=== PATIENT | male | born 1930 | race Caucasian/White ===

== ENCOUNTER 2016-09-03 13:49 | Outpatient (RCR) | payer MEDICARE ==
--- OUTSIDE RECORDS SUMMARY | 2016-06-09 12:57 | XMS REPORT | Continuity of Care Document ---
Author Author [facility] Organization [facility] Address Unknown Phone Unavailable Care Team Providers Care Process Mold Technician Name Role Phone SHASHI COOLEY DO PCP Insurance Providers Payer Name Policy Number Subscriber Name Relationship Wps Medicare [id number] Ignacio Szymanski 18 Self / Same As Patient Blue Cross [facility] Supp [id number] Ignacio Szymanski 18 Self / Same As Patient Advance Directives Directive Response Recorded Date/Time Advance Directives No 04/11/16 12:32pm Health Care Power of Lock Maintenance Supervisor No 04/11/16 12:32pm Organ Donor No 04/11/16 12:32pm Resuscitation Status Full Code 04/11/16 12:32pm Problems No problem information available. Medications Current Home Medications Medication Dose Units Route Directions Days/Qty Instructions Start Date Metoprolol Tartrate 50 Mg 25 Mg Oral Twice A Day take 1/2 of 50mg tab 03/28/16 Apixaban 2.5 Mg 2.5 Mg Oral Twice A Day 03/28/16 Sertraline Hcl 50 Mg 25 Mg Oral Daily take 1/2 of 50mg tab 03/28/16 Pantoprazole Sodium 40 Mg 40 Mg Oral Daily 03/28/16 Social History Social History Problem Response Recorded Date/Time Alcohol Use Denies Use 04/11/2016 12:32pm Recreational Drug Use No 04/11/2016 12:32pm Recent Foreign Travel No 04/11/2016 12:32pm Recent Infectious Disease Exposure No 04/11/2016 12:32pm Hospitalization with Isolation Denies 04/11/2016 12:32pm Sexually Transmitted Disease No 04/11/2016 12:32pm HIV/AIDS No 04/11/2016 12:32pm Smoking Status Former Smoker 04/11/2016 12:32pm Type Used Cigarettes 03/31/2016 1:36pm Sexually Transmitted Disease No 04/11/2016 12:32pm Query Response Start Date Stop Date Smoking Status Former Smoker Hospital Discharge Instructions No hospital discharge instructions. Plan of Care Discharge Date 04/11/16 12:45pm Prescriptions See Medication Section Functional Status No functional status results. Allergies, Adverse Reactions, Alerts Allergen Type Severity Reaction Status Last Updated Iodine and Iodide Containing Produc Allergy Unknown RASH Active 03/28/16 Penicillins ([id number]) Allergy Unknown HIVES Active 03/28/16 Immunizations No immunization records. Vital Signs Acute Vital Signs Vital Response Date/Time Temperature (Fahrenheit) 98.0 degrees F (97.6 - 99.5) 03/31/2016 1:25pm Temperature (Calculated Celsius) 36.72720 degrees C (36.4 - 37.5) 03/31/2016 1:25pm Temperature Source Tympanic 03/31/2016 1:25pm Pulse Rate (adult) 79 bpm (60 - 90) 03/31/2016 1:25pm Respiratory Rate 16 bpm (12 - 24) 03/31/2016 1:25pm O2 Sat by Pulse Oximetry 98 % (88 - 100) 03/31/2016 1:25pm Blood Pressure 158/94 mm Hg 03/31/2016 1:25pm Blood Pressure Mean 110 mm Hg 03/31/2016 8:05am Pain Numeric Pain Scale 0-No Pain 03/31/2016 1:00pm Pain Intensity 0 03/31/2016 1:25pm Height (Feet) 5 feet 04/11/2016 12:32pm Height (Inches) 9.00 inches 04/11/2016 12:32pm Height (Calculated Centimeters) 175.541151 cm 04/11/2016 12:32pm Weight (Pounds) 145 pounds 04/11/2016 12:32pm Weight (Ounces) 0.0 oz 04/11/2016 12:32pm Weight (Calculated Grams) 35146.894 gm 04/11/2016 12:32pm Weight (Calculated Kilograms) 65.722356 kilograms 04/11/2016 12:32pm Calculated BMI 24.13 04/11/2016 12:32pm Results Pending Microbiology Results Procedure Source Collection Date/Time Procedures Procedure Status Date Provider(s) DX BRONCHOSCOPE/LAVAGE Completed 03/31/16 PETER NIELSON DO Color Doppler echocardiography Active 03/18/16 FRANTZ DUBOIS MD 48 hour Holter monitoring Completed 03/18/16 FRANTZ DUBOIS MD 48 hour Holter monitoring Completed 03/18/16 FRANTZ DUBOIS MD Encounters Encounter Location Arrival/Admit Date Discharge/Depart Date Attending Provider Departed Clinic [facility] 04/11/16 5:33am 04/11/16 12: 45pm BRITTNEY STUART DO Registered Clinic [facility] 04/08/16 9:58am PETER NIELSON DO Departed [facility] 03/31/16 7:53am 1:30pm PETER NIELSON DO Departed Clinic [facility] 03/28/16 12:30pm 03/28/16 1: 02pm PETER NIELSON DO Registered Clinic [facility] 03/18/16 9:28am FRANTZ DUBOIS MD Registered Clinic [facility] 03/18/16 8:16am FRANTZ DUBOIS MD
[2016-06-09 13:18] LABS: BASOPHILS % (AUTO) 0 % (0-10); EOSINOPHILS % (AUTO) 1 % (0-10); LYMPHOCYTES # (AUTO) 0.4 X 10^3 (1.0-4.0); LYMPHOCYTES % (AUTO) 10 % (12-44); MEAN CORPUSCULAR HEMOGLOBIN 30 PG (25-34); MEAN CORPUSCULAR HGB CONC 33 G/DL (32-36); MEAN CORPUSCULAR VOLUME 90 FL (80-99); MEAN PLATELET VOLUME 9.2 FL (7.4-10.4); MONOCYTES # (AUTO) 0.1 X 10^3 (0.0-1.0); MONOCYTES % (AUTO) 3 % (0-12); NEUTROPHILS # (AUTO) 3.5 X 10^3 (1.8-7.8); NEUTROPHILS % (AUTO) 86 % (42-75); PLATELET COUNT 232 10^3/uL (130-400); RED CELL DISTRIBUTION WIDTH 14.9 % (10.0-14.5)
[2016-06-09 13:42] LABS: CALCIUM 9.2 MG/DL (8.5-10.1); CREATININE SERUM 1.36 MG/DL (0.60-1.30); POTASSIUM 4.2 MMOL/L (3.6-5.0)
[2016-06-17 14:42] LABS: BASOPHILS % (AUTO) 1 % (0-10); EOSINOPHILS % (AUTO) 1 % (0-10); LYMPHOCYTES # (AUTO) 0.3 X 10^3 (1.0-4.0); LYMPHOCYTES % (AUTO) 22 % (12-44); MEAN CORPUSCULAR HEMOGLOBIN 30 PG (25-34); MEAN CORPUSCULAR HGB CONC 32 G/DL (32-36); MEAN CORPUSCULAR VOLUME 92 FL (80-99); MEAN PLATELET VOLUME 9.3 FL (7.4-10.4); MONOCYTES # (AUTO) 0.3 X 10^3 (0.0-1.0); MONOCYTES % (AUTO) 20 % (0-12); NEUTROPHILS # (AUTO) 0.8 X 10^3 (1.8-7.8); NEUTROPHILS % (AUTO) 56 % (42-75); PLATELET COUNT 152 10^3/uL (130-400); RED BLOOD COUNT 3.75 10^6/uL (4.35-5.85); RED CELL DISTRIBUTION WIDTH 15.5 % (10.0-14.5)
[2016-06-17 14:52] LABS: WHITE BLOOD COUNT 1.4 10^3/uL (4.3-11.0)
[2016-06-17 15:25] LABS: ALBUMIN 3.9 G/DL (3.2-4.5); BILIRUBIN,TOTAL 0.2 MG/DL (0.1-1.0); CALCIUM 9.1 MG/DL (8.5-10.1); CREATININE SERUM 1.32 MG/DL (0.60-1.30); MAGNESIUM 1.8 MG/DL (1.8-2.4); POTASSIUM 4.5 MMOL/L (3.6-5.0); TOTAL PROTEIN 6.7 G/DL (6.4-8.2)
[2016-06-24 14:28] LABS: BASOPHILS % (AUTO) 1 % (0-10); EOSINOPHILS % (AUTO) 2 % (0-10); LYMPHOCYTES # (AUTO) 0.5 X 10^3 (1.0-4.0); LYMPHOCYTES % (AUTO) 26 % (12-44); MEAN CORPUSCULAR HEMOGLOBIN 29 PG (25-34); MEAN CORPUSCULAR HGB CONC 32 G/DL (32-36); MEAN CORPUSCULAR VOLUME 92 FL (80-99); MEAN PLATELET VOLUME 9.3 FL (7.4-10.4); MONOCYTES # (AUTO) 0.5 X 10^3 (0.0-1.0); MONOCYTES % (AUTO) 27 % (0-12); NEUTROPHILS # (AUTO) 0.8 X 10^3 (1.8-7.8); NEUTROPHILS % (AUTO) 44 % (42-75); PLATELET COUNT 172 10^3/uL (130-400); RED BLOOD COUNT 3.91 10^6/uL (4.35-5.85); RED CELL DISTRIBUTION WIDTH 16.7 % (10.0-14.5); WHITE BLOOD COUNT 1.8 10^3/uL (4.3-11.0)
[2016-06-24 14:53] LABS: CALCIUM 9.2 MG/DL (8.5-10.1); CREATININE SERUM 1.41 MG/DL (0.60-1.30); POTASSIUM 4.1 MMOL/L (3.6-5.0)
[2016-07-01 14:54] LABS: BASOPHILS % (AUTO) 0 % (0-10); EOSINOPHILS % (AUTO) 1 % (0-10); LYMPHOCYTES # (AUTO) 0.6 X 10^3 (1.0-4.0); LYMPHOCYTES % (AUTO) 21 % (12-44); MEAN CORPUSCULAR HEMOGLOBIN 30 PG (25-34); MEAN CORPUSCULAR HGB CONC 32 G/DL (32-36); MEAN CORPUSCULAR VOLUME 94 FL (80-99); MONOCYTES # (AUTO) 0.8 X 10^3 (0.0-1.0); MONOCYTES % (AUTO) 30 % (0-12); NEUTROPHILS # (AUTO) 1.3 X 10^3 (1.8-7.8); NEUTROPHILS % (AUTO) 48 % (42-75); PLATELET COUNT 215 10^3/uL (130-400); RED BLOOD COUNT 3.85 10^6/uL (4.35-5.85); RED CELL DISTRIBUTION WIDTH 17.6 % (10.0-14.5); WHITE BLOOD COUNT 2.8 10^3/uL (4.3-11.0)
[2016-07-01 15:26] LABS: CALCIUM 9.1 MG/DL (8.5-10.1); CREATININE SERUM 1.58 MG/DL (0.60-1.30); POTASSIUM 4.2 MMOL/L (3.6-5.0)
[2016-07-08 13:28] LABS: BASOPHILS % (AUTO) 1 % (0-10); EOSINOPHILS % (AUTO) 1 % (0-10); LYMPHOCYTES # (AUTO) 0.7 X 10^3 (1.0-4.0); LYMPHOCYTES % (AUTO) 19 % (12-44); MEAN CORPUSCULAR HEMOGLOBIN 31 PG (25-34); MEAN CORPUSCULAR HGB CONC 33 G/DL (32-36); MEAN CORPUSCULAR VOLUME 94 FL (80-99); MONOCYTES # (AUTO) 0.7 X 10^3 (0.0-1.0); MONOCYTES % (AUTO) 20 % (0-12); NEUTROPHILS # (AUTO) 2.2 X 10^3 (1.8-7.8); NEUTROPHILS % (AUTO) 59 % (42-75); PLATELET COUNT 209 10^3/uL (130-400); RED CELL DISTRIBUTION WIDTH 17.6 % (10.0-14.5); WHITE BLOOD COUNT 3.7 10^3/uL (4.3-11.0)
[2016-07-08 14:09] LABS: CALCIUM 9.5 MG/DL (8.5-10.1); CREATININE SERUM 1.5 MG/DL (0.60-1.30); POTASSIUM 4.1 MMOL/L (3.6-5.0)
[2016-07-23 10:06] LABS: BASOPHILS # (AUTO) 0.1 10^3/uL (0.0-0.1); BASOPHILS % (AUTO) 1 % (0-10); EOSINOPHILS # (AUTO) 0.1 10^3/uL (0.0-0.3); EOSINOPHILS % (AUTO) 2 % (0-10); LYMPHOCYTES # (AUTO) 0.9 X 10^3 (1.0-4.0); LYMPHOCYTES % (AUTO) 16 % (12-44); MEAN CORPUSCULAR HEMOGLOBIN 31 PG (25-34); MEAN CORPUSCULAR HGB CONC 33 G/DL (32-36); MEAN CORPUSCULAR VOLUME 94 FL (80-99); MEAN PLATELET VOLUME 9.3 FL (7.4-10.4); MONOCYTES # (AUTO) 1.1 X 10^3 (0.0-1.0); MONOCYTES % (AUTO) 19 % (0-12); NEUTROPHILS # (AUTO) 3.5 X 10^3 (1.8-7.8); NEUTROPHILS % (AUTO) 62 % (42-75); PLATELET COUNT 224 10^3/uL (130-400); RED BLOOD COUNT 3.92 10^6/uL (4.35-5.85); RED CELL DISTRIBUTION WIDTH 17.8 % (10.0-14.5); WHITE BLOOD COUNT 5.6 10^3/uL (4.3-11.0)
[2016-07-23 10:54] LABS: ALBUMIN 4.2 G/DL (3.2-4.5); BILIRUBIN,TOTAL 0.4 MG/DL (0.1-1.0); CALCIUM 9.9 MG/DL (8.5-10.1); CREATININE SERUM 1.36 MG/DL (0.60-1.30); MAGNESIUM 2.1 MG/DL (1.8-2.4); POTASSIUM 4.3 MMOL/L (3.6-5.0); TOTAL PROTEIN 7.1 G/DL (6.4-8.2)
[2016-08-04 15:40] LABS: BILIRUBIN,TOTAL 0.3 MG/DL (0.1-1.0); CALCIUM 8.9 MG/DL (8.5-10.1); CREATININE SERUM 1.35 MG/DL (0.60-1.30); POTASSIUM 3.9 MMOL/L (3.6-5.0); TOTAL PROTEIN 6.6 G/DL (6.4-8.2)
[2016-08-04 15:51] LABS: BASOPHILS # (AUTO) 0.1 10^3/uL (0.0-0.1); BASOPHILS % (AUTO) 1 % (0-10); EOSINOPHILS # (AUTO) 0.3 10^3/uL (0.0-0.3); EOSINOPHILS % (AUTO) 7 % (0-10); LYMPHOCYTES # (AUTO) 0.7 X 10^3 (1.0-4.0); LYMPHOCYTES % (AUTO) 14 % (12-44); MEAN CORPUSCULAR HEMOGLOBIN 31 PG (25-34); MEAN CORPUSCULAR HGB CONC 32 G/DL (32-36); MEAN CORPUSCULAR VOLUME 96 FL (80-99); MONOCYTES # (AUTO) 0.9 X 10^3 (0.0-1.0); MONOCYTES % (AUTO) 19 % (0-12); NEUTROPHILS # (AUTO) 2.9 X 10^3 (1.8-7.8); NEUTROPHILS % (AUTO) 59 % (42-75); PLATELET COUNT 188 10^3/uL (130-400); RED BLOOD COUNT 3.61 10^6/uL (4.35-5.85); RED CELL DISTRIBUTION WIDTH 17.5 % (10.0-14.5); WHITE BLOOD COUNT 4.9 10^3/uL (4.3-11.0)
[2016-08-11 14:54] LABS: BASOPHILS % (AUTO) 0 % (0-10); EOSINOPHILS # (AUTO) 0.2 10^3/uL (0.0-0.3); EOSINOPHILS % (AUTO) 4 % (0-10); LYMPHOCYTES # (AUTO) 0.5 X 10^3 (1.0-4.0); LYMPHOCYTES % (AUTO) 11 % (12-44); MEAN CORPUSCULAR HEMOGLOBIN 31 PG (25-34); MEAN CORPUSCULAR HGB CONC 32 G/DL (32-36); MEAN CORPUSCULAR VOLUME 96 FL (80-99); MEAN PLATELET VOLUME 9.2 FL (7.4-10.4); MONOCYTES # (AUTO) 0.1 X 10^3 (0.0-1.0); MONOCYTES % (AUTO) 2 % (0-12); NEUTROPHILS # (AUTO) 3.7 X 10^3 (1.8-7.8); NEUTROPHILS % (AUTO) 83 % (42-75); PLATELET COUNT 196 10^3/uL (130-400); RED BLOOD COUNT 3.43 10^6/uL (4.35-5.85); RED CELL DISTRIBUTION WIDTH 16.5 % (10.0-14.5); WHITE BLOOD COUNT 4.5 10^3/uL (4.3-11.0)
[2016-08-11 15:48] LABS: CALCIUM 9.3 MG/DL (8.5-10.1); CREATININE SERUM 1.26 MG/DL (0.60-1.30); POTASSIUM 4.1 MMOL/L (3.6-5.0)
[2016-08-18 14:19] LABS: BASOPHILS % (AUTO) 2 % (0-10); EOSINOPHILS # (AUTO) 0.1 10^3/uL (0.0-0.3); EOSINOPHILS % (AUTO) 6 % (0-10); LYMPHOCYTES # (AUTO) 0.6 X 10^3 (1.0-4.0); LYMPHOCYTES % (AUTO) 38 % (12-44); MEAN CORPUSCULAR HEMOGLOBIN 31 PG (25-34); MEAN CORPUSCULAR HGB CONC 32 G/DL (32-36); MEAN CORPUSCULAR VOLUME 96 FL (80-99); MEAN PLATELET VOLUME 9.5 FL (7.4-10.4); MONOCYTES # (AUTO) 0.3 X 10^3 (0.0-1.0); MONOCYTES % (AUTO) 20 % (0-12); NEUTROPHILS # (AUTO) 0.6 X 10^3 (1.8-7.8); NEUTROPHILS % (AUTO) 34 % (42-75); PLATELET COUNT 139 10^3/uL (130-400); RED BLOOD COUNT 3.73 10^6/uL (4.35-5.85); RED CELL DISTRIBUTION WIDTH 15.9 % (10.0-14.5); WHITE BLOOD COUNT 1.6 10^3/uL (4.3-11.0)
[2016-08-18 14:46] LABS: CALCIUM 9.5 MG/DL (8.5-10.1); CREATININE SERUM 1.4 MG/DL (0.60-1.30)
[2016-08-25 14:26] LABS: BASOPHILS % (AUTO) 1 % (0-10); EOSINOPHILS % (AUTO) 2 % (0-10); LYMPHOCYTES # (AUTO) 0.5 X 10^3 (1.0-4.0); LYMPHOCYTES % (AUTO) 30 % (12-44); MEAN CORPUSCULAR HEMOGLOBIN 31 PG (25-34); MEAN CORPUSCULAR HGB CONC 32 G/DL (32-36); MEAN CORPUSCULAR VOLUME 97 FL (80-99); MEAN PLATELET VOLUME 9.1 FL (7.4-10.4); MONOCYTES # (AUTO) 0.6 X 10^3 (0.0-1.0); MONOCYTES % (AUTO) 33 % (0-12); NEUTROPHILS # (AUTO) 0.6 X 10^3 (1.8-7.8); NEUTROPHILS % (AUTO) 34 % (42-75); PLATELET COUNT 206 10^3/uL (130-400); RED BLOOD COUNT 3.72 10^6/uL (4.35-5.85); RED CELL DISTRIBUTION WIDTH 15.3 % (10.0-14.5); WHITE BLOOD COUNT 1.7 10^3/uL (4.3-11.0)
[2016-08-25 14:53] LABS: CALCIUM 9.3 MG/DL (8.5-10.1); CREATININE SERUM 1.48 MG/DL (0.60-1.30); POTASSIUM 3.9 MMOL/L (3.6-5.0)
[~2016-09-03] VITALS: Ht 170.2 cm; Wt 70.8 kg
[~2016-09-03 13:49] MED LIST: APIX2.5T PO; CARBOPLATIN IV SCH; CISPLATIN IV SCH; D5W IV SCH; ETOPOSIDE IV SCH; FAMOTIDINE 20MG/2ML IV (CANCER CTR) IV SCH; FLU TRIvalent (5 YOA+) 2016-17 (CANCER CTR) 0.5 ML IM ONE; FOSAPREPITANT 150 MG/NS 150 MG IVPB (CANCER CTR) IV PRN; MANNITOL IV SCH; METO50TA2 PO; NORMAL SALINE IV SCH; NS IV 1000 ML (CANCER CTR) 1,000 ML ONE; NS IV 1000 ML (CANCER CTR) IV SCH; ONDANSETRON 16 MG, DEXAMETHASONE 10 MG/NS 50 ML IVPB IV SCH; PALONOSETRON 0.25 MG, DEXAMETHASONE 10 MG/NS 50 ML IVPB IV PRN; PANT40TA2 PO; SERT50TA9 PO; [UNRECOGNIZED DRUG - OTHER] IV SCH
[2016-09-03 14:18] LABS: BASOPHILS # (AUTO) 0.1 10^3/uL (0.0-0.1); BASOPHILS % (AUTO) 1 % (0-10); EOSINOPHILS # (AUTO) 0.1 10^3/uL (0.0-0.3); EOSINOPHILS % (AUTO) 1 % (0-10); LYMPHOCYTES # (AUTO) 0.7 X 10^3 (1.0-4.0); LYMPHOCYTES % (AUTO) 14 % (12-44); MEAN CORPUSCULAR HEMOGLOBIN 31 PG (25-34); MEAN CORPUSCULAR HGB CONC 32 G/DL (32-36); MEAN CORPUSCULAR VOLUME 96 FL (80-99); MEAN PLATELET VOLUME 9.3 FL (7.4-10.4); MONOCYTES # (AUTO) 0.9 X 10^3 (0.0-1.0); MONOCYTES % (AUTO) 18 % (0-12); NEUTROPHILS # (AUTO) 3.2 X 10^3 (1.8-7.8); NEUTROPHILS % (AUTO) 66 % (42-75); PLATELET COUNT 243 10^3/uL (130-400); RED BLOOD COUNT 3.77 10^6/uL (4.35-5.85); RED CELL DISTRIBUTION WIDTH 14.9 % (10.0-14.5)
[2016-09-03 14:46] LABS: BILIRUBIN,TOTAL 0.3 MG/DL (0.1-1.0); CALCIUM 9.2 MG/DL (8.5-10.1); CREATININE SERUM 1.57 MG/DL (0.60-1.30); MAGNESIUM 1.9 MG/DL (1.8-2.4); POTASSIUM 3.7 MMOL/L (3.6-5.0); TOTAL PROTEIN 6.8 G/DL (6.4-8.2)
[2016-12-16] MEDS ORDERED: DEXA4TAB PO (11:03)
== END 2016-09-07 | disposition home or self-care (01) ==
LOC: ONC 13:49
PROVIDERS: ATTEND Internal Medicine Hematology & Oncology
DX: Z51.0 Encounter for antineoplastic radiation therapy (principal); Z51.11 Encounter for antineoplastic chemotherapy; C34.11 Malignant neoplasm of upper lobe, right bronchus or lung; J44.9 Chronic obstructive pulmonary disease, unspecified; I10 Essential (primary) hypertension; I25.10 Atherosclerotic heart disease of native coronary artery without angina pectoris; Z79.899 Other long term (current) drug therapy; Z23 Encounter for immunization
CPT/HCPCS: 36415; 36591; 71020; 77300; 77307; 77334; 77336; 77412; 77417; 80048; 80053; 83735; 85025; 90471; 96367; 96375; 96413; 96417; 99213

== ENCOUNTER → 2016-09-30 | Outpatient (CLI) | payer MEDICARE ==
[~2016-09-30] MED LIST changes: +APIX5TAB PO; +ATOR40TA PO; +BARIUM SUSPENSION 2.1% (VANILLA SILQ) 450 ML PO ONE; -CARBOPLATIN IV SCH; +CATHETER FLUSH 10 ML SYR IV PRN; -CISPLATIN IV SCH; -D5W IV SCH; +DEXA4TAB PO; -ETOPOSIDE IV SCH; -FAMOTIDINE 20MG/2ML IV (CANCER CTR) IV SCH; -FLU TRIvalent (5 YOA+) 2016-17 (CANCER CTR) 0.5 ML IM ONE; +FLUT16SP22 NS; -FOSAPREPITANT 150 MG/NS 150 MG IVPB (CANCER CTR) IV PRN; +IOHEXOL 350 MG/ML 100 ML (OMNIPAQUE 350) VIAL IV ONE; +IPRA4AER IH; +LACT10SO5 PO; +LACT20SO2 PO; -MANNITOL IV SCH; -NORMAL SALINE IV SCH; +NS 100 ML (IVPB) BAG IV ONE; -NS IV 1000 ML (CANCER CTR) 1,000 ML ONE; -NS IV 1000 ML (CANCER CTR) IV SCH; -ONDANSETRON 16 MG, DEXAMETHASONE 10 MG/NS 50 ML IVPB IV SCH; +OXYC-202 PO; +OXYC-465 PO; -PALONOSETRON 0.25 MG, DEXAMETHASONE 10 MG/NS 50 ML IVPB IV PRN; -[UNRECOGNIZED DRUG - OTHER] IV SCH
--- OUTSIDE RECORDS SUMMARY | 2016-09-30 11:35 | XMS REPORT | Continuity of Care Document ---
Author Author [facility] Organization [facility] Address Unknown Phone Unavailable Care Team Providers Care Air And Missile Defense Crewmember Name Role Phone SHASHI COOLEY DO PCP Insurance Providers Payer Name Policy Number Subscriber Name Relationship Wps Medicare [id number] Ignacio Szymanski 18 Self / Same As Patient Blue Cross [facility] Supp [id number] Ignacio Szymanski 18 Self / Same As Patient Advance Directives Directive Response Recorded Date/Time Advance Directives No 04/11/16 12:32pm Health Care Power of Agile Project Manager No 04/11/16 12:32pm Organ Donor No 04/11/16 [...] Produc Allergy Unknown RASH Active 03/28/16 Penicillins ([id number]) Allergy Unknown HIVES Active 03/28/16 Immunizations No immunization records. Vital Signs Acute Vital Signs Vital Response Date/Time Temperature (Fahrenheit) 98.0 degrees F (97.6 - 99.5) 03/31/2016 1:25pm Temperature (Calculated Celsius) 36.22057 degrees C (36.4 - 37.5) 03/31/2016 1:25pm [...] 9.00 inches 04/11/2016 12:32pm Height (Calculated Centimeters) 175.596477 cm 04/11/2016 12:32pm Weight (Pounds) 145 pounds 04/11/2016 12:32pm Weight (Ounces) 0.0 oz 04/11/2016 12:32pm Weight (Calculated Grams) 84936.894 gm 04/11/2016 12:32pm Weight (Calculated Kilograms) 65.259849 kilograms 04/11/2016 12:32pm Calculated BMI 24.13 04/11/2016 [...] Discharge/Depart Date Attending Provider Departed Clinic [facility] 04/11/16 5:33am 04/11/16 12: 45pm BRITTNEY STUART DO Registered Clinic [facility] 04/08/16 9:58am PETER NIELSON DO Departed [facility] Day [facility] 03/31/16 7:53am 1:30pm PETER NIELSON DO Departed Clinic [facility] 03/28/16 12:30pm 03/28/16 1: 02pm PETER NIELSON DO Registered Clinic [facility] 03/18/16 9:28am FRANTZ DUBOIS MD Registered Clinic [facility] 03/18/16 8:16am FRANTZ DUBOIS MD
--- NOTE | 2016-09-30 13:21 | Diagnostic Imaging Report ---
PROCEDURE: CT chest and abdomen with contrast. TECHNIQUE: Multiple contiguous axial images were obtained through the chest and abdomen after the administration of intravenous contrast. INDICATION: Lung cancer. FINDINGS: The PET/CT exam performed on 04/08/2016 noted an intensely hypermetabolic nodule in the right upper lung as well as hypermetabolic right hilar and mediastinal adenopathy. On this exam, the mass in the right upper lung has decreased in size since the previous study. The mass now measures 0.8 x 1.2 cm as opposed to 1.6 x 2.0 cm on the previous study. The enlarged hypermetabolic nodes in the mediastinum and right hilum seen previously also appear slightly smaller. Specifically, the node in the pretracheal region on the right measuring 1.9 x 2.8 cm previously is now estimated to be 1.3 x 1.9 cm. However, in the interval since the prior study, patchy alveolar/interstitial infiltrates have developed in the right upper lobe anteriorly and in the right midlung. These may be secondary to mild pneumonia/atelectasis. The lungs are otherwise generally clear. There is no sign of a pleural effusion. The heart size is within normal limits. A small amount of fluid has developed in the pericardium along the right ventricle. This measures 7 mm in maximum depth. Coronary artery calcifications are noted. Aorta is not abnormally dilated and there is no sign of dissection. Pulmonary arteries were not fully opacified. There is no obvious defect to suggest a pulmonary embolus. The small area of diminished density in the right lobe of the thyroid seen previously is again evident and no different. The liver is of lower density than usually seen. This appearance does suggest fatty metamorphosis. There is no focal mass involving the liver. The biliary tree is not abnormally dilated. The spleen, pancreas, adrenals, gallbladder, kidneys, aorta and inferior vena cava are unremarkable for an acute abnormality. The stomach is partially filled with oral contrast and consequently difficult to assess. There is no abdominal mass or free fluid collection noted. The bone windows show no sign of a fracture or of a destructive lesion. IMPRESSION: 1. The appearance of the chest has improved as the nodule in the right upper lung seen previously has diminished in size. There has also been a slight decrease in size in the mediastinal and hilar adenopathy. 2. The patchy alveolar/interstitial infiltrates involving the left upper lobe and right midlung are of uncertain etiology but could be secondary to mild pneumonia/atelectasis. Clinical followup is recommended. 3. There is no acute cardiopulmonary abnormality noted otherwise. A small pericardial effusion has developed since the prior study however. 4. There is no acute abnormality in the abdomen and there is no sign of metastatic disease. Dictated by: Dictated on workstation # [id number]
--- NOTE | 2016-09-30 16:37 | Diagnostic Imaging Report ---
Whole body bone scan. INDICATION: Lung cancer. The study was performed following administration of 26.2 mCi of 99m technetium MDP. Anterior and posterior whole-body images were obtained. There are no previous nuclear medicine bone scans available for comparison. The PET/CT exam performed on 04/08/2016 noted an intensely hypermetabolic right upper lobe pulmonary nodule but failed to show any sign of metastatic disease. On this exam, there is fairly even distribution of radiotracer throughout the osseous structures. There is no focal area of increased or decreased activity to indicate an acute abnormality or metastatic disease. There is generalized activity involving the shoulder and hip joints and to a lesser extent the knee joints. Most likely, the uptake in these regions reflects degenerative changes. Both kidneys do show excretion of the radiotracer. IMPRESSION: There is no evidence for an acute bony abnormality or for metastatic disease. Dictated by: Dictated on workstation # [id number]
== END ==
LOC: CARD 11:31
PROVIDERS: ATTEND Nurse Practitioner Adult Health
DX: C34.11 Malignant neoplasm of upper lobe, right bronchus or lung (principal)
CPT/HCPCS: 71260; 74160; 78306

== ENCOUNTER 2016-11-07 11:19 | Inpatient (IN) | payer MEDICARE ==
[~2016-11-07] VITALS: Ht 177.8 cm; Wt 66.7 kg
[~2016-11-07 11:19] MED LIST changes: -APIX5TAB PO; -ATOR40TA PO; -BARIUM SUSPENSION 2.1% (VANILLA SILQ) 450 ML PO ONE; -CATHETER FLUSH 10 ML SYR IV PRN; -DEXA4TAB PO; -FLUT16SP22 NS; -IOHEXOL 350 MG/ML 100 ML (OMNIPAQUE 350) VIAL IV ONE; -IPRA4AER IH; -LACT10SO5 PO; -LACT20SO2 PO; -NS 100 ML (IVPB) BAG IV ONE; -OXYC-202 PO; -OXYC-465 PO
--- OUTSIDE RECORDS SUMMARY | 2016-11-07 11:27 | XMS REPORT | Continuity of Care Document ---
Author Author [facility] Organization [facility] Address Unknown Phone Unavailable Care Team Providers Care Operator/Assistant Foreman Name Role Phone SHASHI COOLEY DO PCP Insurance Providers Payer Name Policy Number Subscriber Name Relationship Wps Medicare [id number] Ignacio Szymanski 18 Self / Same As Patient Blue Cross [facility] Supp [id number] Ignacio Szymanski 18 Self / Same As Patient Advance Directives Directive Response Recorded Date/Time Advance Directives No 04/11/16 12:32pm Health Care Power of Black Puller No 04/11/16 12:32pm Organ Donor No 04/11/16 [...] Produc Allergy Unknown RASH Active 03/28/16 Penicillins ([id number]) Allergy Unknown HIVES Active 03/28/16 Immunizations No immunization records. Vital Signs Acute Vital Signs Vital Response Date/Time Temperature (Fahrenheit) 98.0 degrees F (97.6 - 99.5) 03/31/2016 1:25pm Temperature (Calculated Celsius) 36.64697 degrees C (36.4 - 37.5) 03/31/2016 1:25pm [...] 9.00 inches 04/11/2016 12:32pm Height (Calculated Centimeters) 175.128379 cm 04/11/2016 12:32pm Weight (Pounds) 145 pounds 04/11/2016 12:32pm Weight (Ounces) 0.0 oz 04/11/2016 12:32pm Weight (Calculated Grams) 43524.894 gm 04/11/2016 12:32pm Weight (Calculated Kilograms) 65.913316 kilograms 04/11/2016 12:32pm Calculated BMI 24.13 04/11/2016 [...] Discharge/Depart Date Attending Provider Departed Clinic [facility] 04/11/16 5:33am 04/11/16 12: 45pm BRITTNEY STUART DO Registered Clinic [facility] 04/08/16 9:58am PETER NIELSON DO Departed [facility] Day [facility] 03/31/16 7:53am 1:30pm PETER NIELSON DO Departed Clinic [facility] 03/28/16 12:30pm 03/28/16 1: 02pm PETER NIELSON DO Registered Clinic [facility] 03/18/16 9:28am FRANTZ DUBOIS MD Registered Clinic [facility] 03/18/16 8:16am FRANTZ DUBOIS MD
[2016-11-07 13:02] LABS: BILIRUBIN,URINE NEGATIVE (NEGATIVE); KETONES,URINE NEGATIVE (NEGATIVE); LEUKOCYTE ESTERASE ,URINE NEGATIVE (NEGATIVE); MEAN PLATELET VOLUME 9.9 FL (7.4-10.4); NITRITE,URINE NEGATIVE (NEGATIVE); PH,URINE 6 (5-9); PROTEIN,URINE 1+ (NEGATIVE); RED BLOOD COUNT 3.97 10^6/uL (4.35-5.85); UROBILINOGEN,URINE NORMAL (NORMAL)
[2016-11-07 13:15] LABS: ALBUMIN 3.9 G/DL (3.2-4.5); BILIRUBIN,TOTAL 0.4 MG/DL (0.1-1.0); CALCIUM 9.4 MG/DL (8.5-10.1); CREATININE SERUM 1.58 MG/DL (0.60-1.30); SQUAMOUS EPITHELIAL CELL,UR 0-2 /HPF; TOTAL PROTEIN 7.3 G/DL (6.4-8.2)
--- NOTE | 2016-11-07 13:15 | ED Abdominal Pain ---
General Chief Complaint: Abdominal/GI Problems Stated Complaint: RIGHT SIDE ABD PAIN Sepsis Screen: No Definite Risk Source of Information: Patient, Family History of Present Illness Time Seen By Provider: 13:12 Initial Comments Z5-year-old white male presents with complaint of right lower quadrant pain. Patient has a patient of Dr. Morton who is treating him for lung cancer. Patient has not an eloquent historian. It appears that he has not had associated vomiting, fever, chills, flank pain, or rectal bleeding. Allergies and Home Medications Allergies Coded Allergies: Iodine and Iodide Containing Produc (Verified Allergy, Unknown, RASH, 03/28) Penicillins (Verified Allergy, Unknown, HIVES, 03/28/16) Home Medications Apixaban 2.5 Mg Tablet 2.5 MG PO BID (Reported) Metoprolol Tartrate 50 Mg Tablet 25 MG PO BID (Reported) take 1/2 of 50mg tab Pantoprazole Sodium 40 Mg Tablet.dr 40 MG PO DAILY (Reported) Sertraline HCl 50 Mg Tablet 25 MG PO DAILY (Reported) take 1/2 of 50mg tab Review of Systems Constitutional: No chills, No fever EENTM: No Eye Pain Respiratory: See HPI Cardiovascular: Denies Chest Pain Gastrointestinal: Abdominal Pain (right lower quadrant.) Genitourinary: Denies Burning, Denies Drainage Musculoskeletal: No gout Psychiatric/Neurological: No Symptoms Reported Endocrine: No Symptoms Reported Hematologic/Lymphatic: No Symptoms Reported Past Qpdnfbl-Raapya-Bxvird Hx Patient Social History Alcohol Use: Denies Use Recreational Drug Use: No Smoking Status: Former Smoker Type Used: Cigarettes Recent Foreign Travel: No Contact w/Someone Who Travel: No Recent Infectious Disease Expo: No Immunizations Up To Date Date of Pneumonia Vaccine: Mar 24, 2016 Surgeries HX Surgeries: Yes (Ing hernia, knee scope, ) Respiratory Hx Respiratory Disorders: Yes Respiratory Disorders: COPD Cardiovascular Hx Cardiac Disorders: Yes Neurological Hx Neurological Disorders: No Reproductive System Sexually Transmitted Disease: No HIV/AIDS: No Genitourinary Hx Genitourinary Disorders: No Gastrointestinal Hx Gastrointestinal Disorders: Yes Gastrointestinal Disorders: Gastroesophageal Reflux Musculoskeletal Hx Musculoskeletal Disorders: Yes Musculoskeletal Disorders: Arthritis Endocrine Hx Endocrine Disorders: No HEENT HX ENT Disorders: Yes (GLASSES, DENTURES) Loss of Vision: Bilateral Hearing Impairment: Denies Cancer Hx Cancer: Yes Cancer: Lung Psychosocial Hx Psychiatric Problems: Yes Behavioral Health Disorders: Depression Integumentary HX Skin/Integumentary Disorder: No Blood Transfusions Hx Blood Disorders: No Adverse Reaction to a Blood Tr: No (N/A) Reviewed Nursing Assessment Reviewed/Agree w Nursing PMH: Yes Physical Exam Vital Signs VS - Last 72 Hours, by Label 11/07/16 12:10 Temp 98.2 Pulse 96 Resp 18 B/P 120/96 Pulse Ox 97 Capillary Refill : Less Than 3 Seconds General Appearance: cachetic no apparent distress HEENT: normal ENT inspection Neck: normal inspection Respiratory: normal breath sounds Cardiovascular: regular rate, rhythm Gastrointestinal: normal bowel sounds no pulsatile mass Extremities: normal range of motion non-tender normal inspection Back: normal inspection Neurologic/Psychiatric: no motor/sensory deficits normal mood/affect Skin: normal color warm/dry Progress/Results/Core Measures Results/Orders Lab Results Laboratory Tests Test 11/07/16 12:40 Range/Units Alanine Aminotransferase (ALT/SGPT) 19 0-55 U/L Albumin 3.9 3.2-4.5 G/DL Alkaline Phosphatase 126 40-136 U/L Anion Gap 11 5-14 MMOL/L Aspartate Amino Transf (AST/SGOT) 23 5-34 U/L BUN/Creatinine Ratio 9 Blood Urea Nitrogen 14 7-18 MG/DL Calcium Level 9.4 8.5-10.1 MG/DL Carbon Dioxide Level 22 21-32 MMOL/L Chloride Level 101 98-107 MMOL/L Creatinine 1.58 H 0.60-1.30 MG/DL Estimat Glomerular Filtration Rate 42 Glucose Level 141 H 70-105 MG/DL Hematocrit 35 L 40-54 % Hemoglobin 11.4 L 13.3-17.7 G/DL Lipase 20 8-78 U/L Mean Corpuscular Hemoglobin 29 25-34 PG Mean Corpuscular Hemoglobin Concent 32 32-36 G/DL Mean Corpuscular Volume 89 80-99 FL Mean Platelet Volume 9.9 7.4-10.4 FL Platelet Count 294 130-400 10^3/uL Potassium Level 4.0 3.6-5.0 MMOL/L Red Blood Count 3.97 L 4.35-5.85 10^6/uL Red Cell Distribution Width 14.0 10.0-14.5 % Sodium Level 134 L 135-145 MMOL/L Total Bilirubin 0.4 0.1-1.0 MG/DL Total Protein 7.3 6.4-8.2 G/DL Urine Bacteria NEGATIVE /HPF Urine Bilirubin NEGATIVE NEGATIVE Urine Casts PRESENT /LPF Urine Clarity CLEAR Urine Color YELLOW Urine Crystals NONE /LPF Urine Culture Indicated NO Urine Glucose (UA) NEGATIVE NEGATIVE Urine Hyaline Casts 5-10 H /LPF Urine Ketones NEGATIVE NEGATIVE Urine Leukocyte Esterase NEGATIVE NEGATIVE Urine Mucus NEGATIVE /LPF Urine Nitrite NEGATIVE NEGATIVE Urine Protein 1+ H NEGATIVE Urine RBC NONE /HPF Urine RBC (Auto) 1+ H NEGATIVE Urine Specific [place] 1.010 L 1.016-1.022 Urine Squamous Epithelial Cells 0-2 /HPF Urine Urobilinogen NORMAL NORMAL MG/DL Urine WBC NONE /HPF Urine pH 6 5-9 White Blood Count 7.0 4.3-11.0 10^3/uL My Orders Orders-YASMEEN SOTO MD Cbc No Diff (11/07/16 12:55) Comprehensive Metabolic Panel (11/07/16 12:55) Lipase (11/07/16 12:55) Ua Culture If Indicated (11/07/16 12:55) Ct Abdomen/Pelvis W (11/07/16 13:15) Chest Pa/Lat (2 View) (11/07/16 13:15) Iohexol Injection (Omnipaque 350 Mg/Ml 1 (11/07/16 13:45) Sodium Chloride Flush (Catheter Flush Sy (11/07/16 13:45) Ns (Ivpb) (Sodium Chloride 0.9% Ivpb Bag (11/07/16 13:45) Medications Given in ED Current Medications Medications Dose Ordered Sig/[place] Route Start Time Stop Time Status Last Admin Dose Admin Iohexol 75 ml ONCE ONCE IV 11/07/16 13:45 11/07/16 13:46 DC 11/07/16 13:45 75 ML Vital Signs/I&O Vital Sign - Last 12Hours 11/07/16 12:10 Temp 98.2 Pulse 96 Resp 18 B/P 120/96 Pulse Ox 97 Blood Pressure Mean: 104 Progress Note : Time: 14:31 Progress Note The patient's CT of the abdomen and pelvis demonstrated multiple large masses consistent with neoplasms. Departure Communication Time/Spoke to Admitting Phy: 14:[address] Green Time/Spoke to Consulting Physi: 14:32 Communication/Consulting Dr. Huston Impression Impression: Primary Impression: Abdominal mass Qualified Code: R19.00 - Intra-abdominal and pelvic swelling, mass and lump, unspecified site Additional Impression: Cancer Disposition: 09 ADMITTED INPATIENT Condition: Improved Departure-Patient Inst. Referrals: SHASHI COOLEY DO (PCP/Family) Primary Care Physician YASMEEN SOTO MD Nov 07, 2016 13:15
[2016-11-07] MEDS ORDERED: NS 100 ML (IVPB) BAG IV ONE (13:45)
[2016-11-07] MEDS ORDERED: CATHETER FLUSH 10 ML SYR IV PRN (13:45)
[2016-11-07] MEDS ORDERED: IOHEXOL 350 MG/ML 100 ML (OMNIPAQUE 350) VIAL IV ONE (13:45)
--- NOTE | 2016-11-07 14:21 | Diagnostic Imaging Report ---
PA and lateral chest at 1:57 PM. INDICATION: Lung cancer. The heart size is within normal limits and stable when compared to 09/03/2016. The coarse perihilar markings on the right seen on the prior study are somewhat more pronounced on this exam. This may be secondary to differences in film technique. There is no definite evidence for pneumonia, however. The left lung is generally clear. The mediastinum is not widened. The osseous structures are intact. The central venous catheter on the left remains in good position. IMPRESSION: 1. The perihilar markings on the right do seem somewhat more prominent than noted on the prior exam, but there is no clear evidence for pneumonia or for failure. 2. The overall appearance of the chest is otherwise stable. Dictated by: Dictated on workstation # [id number]
--- NOTE | 2016-11-07 14:24 | Diagnostic Imaging Report ---
PROCEDURE: CT abdomen and pelvis with contrast. TECHNIQUE: Multiple contiguous axial images were obtained through the abdomen and pelvis after administration of intravenous contrast. INDICATION: Right sided pain. FINDINGS: Along the periphery of the right mid abdomen there is a mass measuring 4.3 x 5.6 x 6.5 cm in maximum longitudinal and transverse and AP dimensions. In retrospect this mass was also present on the previous CT chest and abdomen exam of 09/30/2016 at which time it measured 2.7 x 3.2 x 3.9 cm. Also, there is an even larger mass now evident in the left upper quadrant. This measures 5.9 x 5.5 x 8.1 cm. Previously the mass measured 3.7 x 4.0 x 3.1 cm. On the previous exam both of these soft tissue masses were felt to be related to unopacified bowel. However, given their increase in size, these should be considered neoplastic until proven otherwise. There is gas and fluid in both the large and small bowel in a non-specific fashion. There is no evidence for a bowel obstruction. No other mass lesion is identified. There is no free fluid collection noted either. The prostate gland is enlarged measuring 5.2 cm in maximum transverse diameter. The urinary bladder is grossly unremarkable. The liver is prominent and of lower density than usually seen. This appearance does suggest fatty metamorphosis. The spleen, pancreas, adrenals, kidneys, gallbladder, aorta and inferior vena cava show no sign of an acute abnormality. The bone windows are unremarkable for a fracture or for a destructive lesion. In the interval since the previous study mild atelectasis/infiltrate and small amount of fluid has developed in the right lung base. The pleural-based density along the periphery of the left lower lobe in the region of the fracture of the left ninth rib seen on previous study is again evident and no different. IMPRESSION: 1. There is a large mass lesion along the periphery of the right mid abdomen an even larger mass in the left upper quadrant. These masses should be considered neoplastic until proven otherwise. 2. There is no other mass lesion identified. 3. There is no sign of an acute abnormality. 4. There is mild right lower lobe atelectasis/infiltrate and small right pleural effusion. These results were called to Dr. Huston and to Dr. Kolby Saha. Dictated by: Dictated on workstation # [id number]
[2016-11-07 15:15] VITALS: BP 124/79
[2016-11-07] MEDS ORDERED: fentaNYL INJECTION 100 MCG/2 ML AMP ONE (15:26)
[2016-11-07] MEDS ORDERED: fentaNYL INJECTION 100 MCG/2 ML AMP IV PRN (15:45)
[2016-11-07] MEDS ORDERED: ONDANSETRON 4 MG/2 ML (SDV) Z0FRAN IV PRN (15:45)
[2016-11-07 16:00] VITALS: BP 124/79
[2016-11-07] MEDS ORDERED: ATOR40TA PO (18:00)
[2016-11-07] MEDS: CATHETER FLUSH 10 ML SYR IV SCH (18:24)
[2016-11-07] MEDS: fentaNYL INJECTION 100 MCG/2 ML AMP IVP PRN ×2 (18:24→23:21)
[2016-11-07 19:05] VITALS: BP 96/56
[2016-11-08] VITALS: BP 91/57
[2016-11-08 04:00] VITALS: BP 134/82
[2016-11-08] MEDS: CATHETER FLUSH 10 ML SYR IV SCH ×2 (05:26→13:52)
[2016-11-08 06:01] LABS: BASOPHILS # (AUTO) 0.1 10^3/uL (0.0-0.1); BASOPHILS % (AUTO) 1 % (0-10); EOSINOPHILS # (AUTO) 0.4 10^3/uL (0.0-0.3); EOSINOPHILS % (AUTO) 6 % (0-10); LYMPHOCYTES # (AUTO) 0.6 X 10^3 (1.0-4.0); LYMPHOCYTES % (AUTO) 9 % (12-44); MEAN CORPUSCULAR HEMOGLOBIN 29 PG (25-34); MEAN CORPUSCULAR HGB CONC 32 G/DL (32-36); MEAN CORPUSCULAR VOLUME 89 FL (80-99); MEAN PLATELET VOLUME 10.2 FL (7.4-10.4); MONOCYTES # (AUTO) 0.8 X 10^3 (0.0-1.0); MONOCYTES % (AUTO) 12 % (0-12); NEUTROPHILS # (AUTO) 4.7 X 10^3 (1.8-7.8); NEUTROPHILS % (AUTO) 72 % (42-75); PLATELET COUNT 267 10^3/uL (130-400); RED BLOOD COUNT 3.68 10^6/uL (4.35-5.85); WHITE BLOOD COUNT 6.5 10^3/uL (4.3-11.0)
[2016-11-08 06:32] LABS: ALBUMIN 3.2 G/DL (3.2-4.5); BILIRUBIN,TOTAL 0.4 MG/DL (0.1-1.0); CREATININE SERUM 1.4 MG/DL (0.60-1.30); POTASSIUM 4.1 MMOL/L (3.6-5.0); TOTAL PROTEIN 6.4 G/DL (6.4-8.2)
[2016-11-08] MEDS: fentaNYL INJECTION 100 MCG/2 ML AMP IVP PRN ×3 (07:53→19:40)
[2016-11-08] MEDS: CATHETER FLUSH 10 ML SYR IV PRN (07:53)
[2016-11-08 08:21] VITALS: BP 127/24
[2016-11-08] MEDS: PANTOPRAZOLE 40 MG (PROTONIX) TAB PO SCH (11:31)
[2016-11-08] MEDS: SERTRALINE 50 MG (ZOLOFT) TABLET PO SCH (11:31)
[2016-11-08] MEDS: APIXABAN 2.5 MG (ELIQUIS) TABLET PO SCH ×2 (11:31→20:12)
[2016-11-08 12:11] VITALS: BP 97/59
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
[2016-11-08 16:00] VITALS: BP 96/63
[2016-11-08 20:04] VITALS: BP 94/55
[2016-11-09] VITALS: BP 105/61
[2016-11-09] MEDS: CATHETER FLUSH 10 ML SYR IV SCH ×4 (00:24→22:20)
[2016-11-09] MEDS: fentaNYL INJECTION 100 MCG/2 ML AMP IVP PRN ×6 (00:24→22:19)
[2016-11-09] MEDS: PANTOPRAZOLE 40 MG (PROTONIX) TAB PO SCH (08:04)
[2016-11-09] MEDS: APIXABAN 2.5 MG (ELIQUIS) TABLET PO SCH ×2 (08:05→20:47)
[2016-11-09] MEDS: SERTRALINE 50 MG (ZOLOFT) TABLET PO SCH (08:05)
[2016-11-09 08:20] VITALS: BP 117/71
--- NOTE | 2016-11-09 10:23 | Progress Note-Hospitalist ---
Standard Progress Note Progress Notes/Assess & Plan Date Seen 11/09/16 Diagnosis 2 intra-abdominal masses highly suggestive of malignancy. 2.previous diagnosis of carcinoma of the lung. 3.abdominal pain secondary to number 1 Assess & Plan/Chief Complaint The patient today reports that he is comfortable. He is afebrile and vital signs are stable. Plans are being made for needle biopsy tomorrow. His daughter plans to come later this morning so that I might show her the CT scans. Physical exam: He is alert and oriented. Lungs are clear to auscultation. CV is regular without murmur. Abdomen continues to show firmness over the right subcostal lateral abdomen Impression: Previous history carcinoma of the lung. 2.2 abdominal masses with the appearance of carcinoma. Plan: Needle biopsy, CT-guided, by Dr. Limon tomorrow Labs Laboratory Tests 11/07/16 12:40 11/08/16 05:30 NEY WADE MD Nov 09, 2016 10:23
[2016-11-09 16:00] VITALS: BP 124/80
[2016-11-09] MEDS: CATHETER FLUSH 10 ML SYR IV PRN (18:31)
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
[2016-11-10] VITALS: BP 93/57
[2016-11-10] MEDS: fentaNYL INJECTION 100 MCG/2 ML AMP IVP PRN ×2 (06:24→13:21)
[2016-11-10] MEDS: CATHETER FLUSH 10 ML SYR IV SCH ×2 (06:24→13:50)
[2016-11-10 06:46] LABS: BASOPHILS % (AUTO) 1 % (0-10); EOSINOPHILS # (AUTO) 0.3 10^3/uL (0.0-0.3); EOSINOPHILS % (AUTO) 4 % (0-10); LYMPHOCYTES # (AUTO) 0.5 X 10^3 (1.0-4.0); LYMPHOCYTES % (AUTO) 8 % (12-44); MEAN CORPUSCULAR HEMOGLOBIN 28 PG (25-34); MEAN CORPUSCULAR HGB CONC 32 G/DL (32-36); MEAN CORPUSCULAR VOLUME 88 FL (80-99); MONOCYTES # (AUTO) 0.8 X 10^3 (0.0-1.0); MONOCYTES % (AUTO) 11 % (0-12); NEUTROPHILS # (AUTO) 5.2 X 10^3 (1.8-7.8); NEUTROPHILS % (AUTO) 76 % (42-75); PLATELET COUNT 284 10^3/uL (130-400); RED CELL DISTRIBUTION WIDTH 14.1 % (10.0-14.5); WHITE BLOOD COUNT 6.7 10^3/uL (4.3-11.0)
[2016-11-10 06:53] LABS: INR 1.2 (0.8-1.4); PROTHROMBIN TIME PATIENT 14.7 SEC (12.2-14.7)
[2016-11-10 08:00] VITALS: BP 125/81
[2016-11-10] MEDS ORDERED: fentaNYL INJECTION 100 MCG/2 ML AMP IVP PRN (08:30)
[2016-11-10] MEDS ORDERED: LIDOCAINE 1% INJ 20 ML (XYLOCAINE) VIAL ONE (08:52)
[2016-11-10] MEDS: SERTRALINE 50 MG (ZOLOFT) TABLET PO SCH ×2 (09:00→11:16)
[2016-11-10] MEDS: PANTOPRAZOLE 40 MG (PROTONIX) TAB PO SCH ×2 (09:00→11:16)
[2016-11-10 10:37] VITALS: BP 121/53
[2016-11-10 10:44] VITALS: BP 134/52
[2016-11-10 10:49] VITALS: BP 97/56
--- NOTE | 2016-11-10 10:54 | Progress Note-Hospitalist ---
Progress Note HPI/CC on Admission The patient is an 85-year-old white male who presented to the emergency room yesterday with complaints of abdominal pain. He has a past history of lung cancer for which she was treated by Dr. Huston. He reports over the last month or 2 he has been having increasing pain in his abdomen particularly on the right lateral abdomen. A CT scan was performed from the emergency room which showed a rather large mass in precisely the area in which he was complaining. This did not appear to be obstructive. In addition there was a second mass on the left which was more deeply into the peritoneum. 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 Progress Notes/Assess & Plan Date Seen 11/10/16 Diagonsis/Assessment & Plan Chart Review: No fever Vitals stable WBC 6.7 Hgb 10.8 CMP normal except Creat 1.4 Patient Interview: Pt states that he still has pain, but denies need for increased pain meds. Pt states that he is supposed to have an operation today. Left abdominal lateral mass will be biopsied Pt states that he sees Dr. Huston for his lung. PCP is Dr. Morrison vital signs stable, pleasant, oriented 3, thin irregular rate and rhythm, clear to all sedation bilaterally Assessment: left lateral abdominal mass status post needle biopsy with history of lung cancer presumed neoplastic under Dr. Rico cancer treatment care Hypertension Former smoker Atrial fibrillation on anticoagulation Plan: Biopsy today discharge planning Pain medication Scribed by Uri Garcia under the direct supervision of Dr. Napoles. DREW NAPOLES DO Nov 10, 2016 10:53
[2016-11-10 10:58] VITALS: BP 106/59
[2016-11-10] MEDS ORDERED: LIDOCAINE 1% INJ 20 ML (XYLOCAINE) VIAL INJ ONE (11:30)
[2016-11-10] MEDS ORDERED: LACT20SO2 PO (11:57)
[2016-11-10] MEDS ORDERED: OXYC-202 PO (11:57)
--- NOTE | 2016-11-10 12:23 | Discharge Summary-Hospitalist ---
Diagnosis/Chief Complaint Date of Admission Nov 07, 2016 at 14:47 Date of Discharge Discharge Date: Nov 10, 2016 Admission Diagnosis 2 intra-abdominal masses highly suggestive of malignancy. 2.previous diagnosis of carcinoma of the lung. 3.abdominal pain secondary to number 1 Discharge Diagnosis Date Seen 11/10/16 Diagonsis/Assessment & Plan Chart Review: No fever Vitals stable WBC 6.7 Hgb 10.8 CMP normal except Creat 1.4 Patient Interview: Pt states that he still has pain, but denies need for increased pain meds. Pt states that he is supposed to have an operation today. Left abdominal lateral mass will be biopsied Pt states that he sees Dr. Huston for his lung. PCP is Dr. Morrison vital signs stable, pleasant, oriented 3, thin irregular rate and rhythm, clear to all sedation bilaterally Assessment: left lateral abdominal mass status post needle biopsy with history of lung cancer presumed neoplastic under Dr. Rico cancer treatment care Hypertension Former smoker Atrial fibrillation on anticoagulation Plan: Biopsy today discharge planning Pain medication Scribed by Uri Garcia under the direct supervision of Dr. Napoles. Chart Review: No fever Vitals stable WBC 6.7 Hgb 10.8 CMP normal except Creat 1.4 Patient Interview: Pt states that he still has pain, but denies need for increased pain meds. Pt states that he is supposed to have an operation today. Left abdominal lateral mass will be biopsied Pt states that he sees Dr. Huston for his lung. PCP is Dr. Morrison vital signs stable, pleasant, oriented 3, thin irregular rate and rhythm, clear to all sedation bilaterally Assessment: left lateral abdominal mass status post needle biopsy with history of lung cancer presumed neoplastic under Dr. Rioc cancer treatment care Hypertension Former smoker Atrial fibrillation on anticoagulation Plan: Biopsy today discharge planning Pain medication Scribed by Uri Garcia under the direct supervision of Dr. Napoles. Reason Hospital Visit/Course The patient is an 85-year-old white male who presented to the emergency room yesterday with complaints of abdominal pain. He has a past history of lung cancer for which she was treated by Dr. Huston. He reports over the last month or 2 he has been having increasing pain in his abdomen particularly on the right lateral abdomen. A CT scan was performed from the emergency room which showed a rather large mass in precisely the area in which he was complaining. This did not appear to be obstructive. In addition there was a second mass on the left which was more deeply into the peritoneum. 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 Hospital course: Patient had a short hospital course he was admitted initiated pain controlled for the left lateral abdominal mass that was presumed neoplastic due to a lung cancer history so CT-guided biopsy was performed without difficulty pain was well-controlled and Dr. Tucker was notified and would see him in close follow-up on Thursday at the [facility] to discuss results and to build management plan. He was sent home on Percocet along with lactulose bowel regimen to prevent narcotic bowel and will support the patient in any needs that may arise with close follow-up with director of social work at the [facility]. Discharge Summary Discharge Physical Examination Allergies: Coded Allergies: Iodine and Iodide Containing Produc (Verified Allergy, Unknown, RASH, 03/28) Penicillins (Verified Allergy, Unknown, HIVES, 03/28/16) Vitals & I&Os Vital Signs Date Time Temp Pulse Resp B/P Pulse Ox O2 Delivery O2 Flow Rate FiO2 11/10/16 10:58 111 18 106/59 93 Room Air 11/10/16 10:37 98.2 Hospital Course Labs (last 24 hrs) Laboratory Tests 11/10/16 06:15: Basophils # (Auto) 0.0, Basophils (%) (Auto) 1, Eosinophils # (Auto) 0.3, Eosinophils (%) (Auto) 4, Hematocrit 34L, Hemoglobin 10.8L, INR Comment 1.2, Lymphocytes # (Auto) 0.5L, Lymphocytes (%) (Auto) 8L, Mean Corpuscular Hemoglobin 28, Mean Corpuscular Hemoglobin Concent 32, Mean Corpuscular Volume 88, Mean Platelet Volume 10.0, Monocytes # (Auto) 0.8, Monocytes (%) (Auto) 11, Neutrophils # (Auto) 5.2, Neutrophils (%) (Auto) 76H, Platelet Count 284, Prothrombin Time 14.7, Red Blood Count 3.80L, Red Cell Distribution Width 14.1, White Blood Count 6.7 Pending Labs Laboratory Tests 11/10/16 06:15: Basophils # (Auto) 0.0, Basophils (%) (Auto) 1, Eosinophils # (Auto) 0.3, Eosinophils (%) (Auto) 4, Hematocrit 34, Hemoglobin 10.8, INR Comment 1.2, Lymphocytes # (Auto) 0.5, Lymphocytes (%) (Auto) 8, Mean Corpuscular Hemoglobin 28, Mean Corpuscular Hemoglobin Concent 32, Mean Corpuscular Volume 88, Mean Platelet Volume 10.0, Monocytes # (Auto) 0.8, Monocytes (%) (Auto) 11, Neutrophils # (Auto) 5.2, Neutrophils (%) (Auto) 76, Platelet Count 284, Prothrombin Time 14.7, Red Blood Count 3.80, Red Cell Distribution Width 14.1, White Blood Count 6.7 Discharge Home Medications: Active Scripts Active Lactulose 20 Gm/30 Ml Solution 20 Gm PO TID PRN Percocet 10-325 mg Tablet (Oxycodone HCl/Acetaminophen) 1 Each Tablet 1 Each PO Q4H PRN Lipitor (Atorvastatin Calcium) 40 Mg Tablet 40 Mg PO HS Reported Protonix (Pantoprazole Sodium) 40 Mg Tablet.dr 40 Mg PO DAILY Sertraline HCl 50 Mg Tablet 25 Mg PO DAILY take 1/2 of 50mg tab Eliquis (Apixaban) 2.5 Mg Tablet 2.5 Mg PO BID Instructions to patient/family Please see electonic discharge instructions given to patient. Clinical Quality Measures DVT/VTE Risk/Contraindication: Risk Factor Score Per Nursin RFS Level Per Nursing on Admit: 4+=Very High DREW NAPOLES DO Nov 10, 2016 12:22
--- NOTE | 2016-11-10 15:10 | Diagnostic Imaging Report ---
EXAMINATION: CT-guided needle biopsy. INDICATION: Abdominal mass. HISTORY: The CT abdomen/pelvis exam performed on 11/07/2016 noted a 5.6 x 6.5 cm mass along the periphery of the right mid abdomen. FINDINGS: Following aseptic preparation of the skin and administration of local anesthesia, the area in question was biopsied with an 18-gauge needle using CT guidance. Six core samples were obtained. An aspirate from the area was also performed. The patient tolerated the procedure well and was dismissed in good condition. IMPRESSION: There has been a successful biopsy of the mass in the right mid abdomen. A final Pathology report is pending. Dictated by: Dictated on workstation # [id number]
[2016-12-16] MEDS ORDERED: DEXA4TAB PO (11:03)
== END 2016-11-10 15:18 | disposition home or self-care (01) | DRG 827 ==
LOC: EDUNIT# 11:19 → ER 11:23 → 4TH 14:47
PROVIDERS: ADMIT Internal Medicine; ATTEND Internal Medicine
PROC: 0WBF3ZX Excision of Abdominal Wall, Percutaneous Approach, Diagnostic (ICD-10-PCS; principal; 2016-11-10)
DX: C79.89 Secondary malignant neoplasm of other specified sites (principal); C34.01 Malignant neoplasm of right main bronchus; C77.1 Secondary and unspecified malignant neoplasm of intrathoracic lymph nodes; R64 Cachexia; I10 Essential (primary) hypertension; I48.91 Unspecified atrial fibrillation; J44.9 Chronic obstructive pulmonary disease, unspecified; K21.9 Gastro-esophageal reflux disease without esophagitis; F32.9 Major depressive disorder, single episode, unspecified; M19.91 Primary osteoarthritis, unspecified site; Z87.891 Personal history of nicotine dependence; Z79.01 Long term (current) use of anticoagulants; Z92.3 Personal history of irradiation; Z92.21 Personal history of antineoplastic chemotherapy
CPT/HCPCS: 36415; 71020; 74177; 77012; 80053; 81000; 83690; 85025; 85027; 85610; 87070; 87075; 87101; 87205; 88305; 88341; 88342

== ENCOUNTER → 2016-11-25 | Outpatient (CLI) | payer MEDICARE ==
[~2016-11-25] MED LIST changes: +APIX5TAB PO; +ATOR40TA PO; +DEXA4TAB PO; +FLUT16SP22 NS; +IPRA4AER IH; +LACT10SO5 PO; +LACT20SO2 PO; +OXYC-202 PO; +OXYC-465 PO
--- OUTSIDE RECORDS SUMMARY | 2016-11-25 11:20 | XMS REPORT | Continuity of Care Document ---
Author Author [facility] Organization [facility] Address Unknown Phone Unavailable Care Team Providers Care Statement Clerks Supervisor Name Role Phone SHASHI COOLEY DO PCP Insurance Providers Payer Name Policy Number Subscriber Name Relationship [employer] [id number] Ignacio Szymanski 18 Self / Same As Patient [employer] [facility] Supp [id number] Ignacio Szymanski 18 Self / Same As Patient Advance Directives Directive Response Recorded Date/Time Advance Directives No 04/11/16 12:32pm Health Care Power of Cocktail Lounge Manager No 04/11/16 12:32pm Organ Donor No [...] Produc Allergy Unknown RASH Active 03/28/16 Penicillins ([id number]) Allergy Unknown HIVES Active 03/28/16 Immunizations No immunization records. Vital Signs Acute Vital Signs Vital Response Date/Time Temperature (Fahrenheit) 98.0 degrees F (97.6 - 99.5) 03/31/2016 1:25pm Temperature (Calculated Celsius) 36.18630 degrees C (36.4 - 37.5) 03/31/2016 1:25pm [...] 9.00 inches 04/11/2016 12:32pm Height (Calculated Centimeters) 175.386369 cm 04/11/2016 12:32pm Weight (Pounds) 145 pounds 04/11/2016 12:32pm Weight (Ounces) 0.0 oz 04/11/2016 12:32pm Weight (Calculated Grams) 99472.894 gm 04/11/2016 12:32pm Weight (Calculated Kilograms) 65.387987 kilograms 04/11/2016 12:32pm Calculated BMI 24.13 04/11/2016 [...] Discharge/Depart Date Attending Provider Departed Clinic [facility] 04/11/16 5:33am 04/11/16 12: 45pm BRITTNEY STUART DO Registered Clinic [facility] 04/08/16 9:58am PETER NIELSON DO Departed [facility] 03/31/16 7:53am 1:30pm PETER NIELSON DO Departed Clinic [facility] 03/28/16 12:30pm 03/28/16 1: 02pm PETER NIELSON DO Registered Clinic [facility] 03/18/16 9:28am FRANTZ DUBOIS MD Registered Clinic [facility] 03/18/16 8:16am FRANTZ DUBOIS MD
--- NOTE | 2016-11-26 10:07 | Diagnostic Imaging Report ---
EXAMINATION: PET-CT TECHNIQUE: Serum glucose level at the time of the study is: 139 mg/dL. 12.6 mCi of FDG was administered intravenously followed by obtaining PET images with corresponding noncontrast CT scan images. The CT scan was performed for anatomic correlation and attenuation correction and was not performed according to the diagnostic protocol of the areas covered. The scan was performed from the head to mid thighs. INDICATION: Lung cancer followup. Comparison CT chest and abdomen performed on 09/30/2016 is reviewed. FINDINGS: There are heterogenous areas of increased uptake in the left frontal and left parietal regions of the brain concerning for underlying metastasis. Brain MRI evaluation is recommended. In the neck, there is no hypermetabolic mass seen. In the chest hypermetabolic right paratracheal lymph node mass has SUV of 11.8. It measures 3 x 2.1 CM enlarged from 1.9 x 1.3 CM on the previous exam. Mildly hypermetabolic right upper lobe nodule is also seen. This is also enlarged from the previous exam measuring 1.3 CM compared to 0.8 CM on the previous study. There is a small right pleural effusion and nonspecific predominantly groundglass consolidation in the posterior right lung in the upper and mid lung zones. Also hypermetabolic lymph nodes in the infracarinal station and right hilum are seen with size comparison perhaps slightly more prominent compared to 09/30/16. In the abdomen upper sections, there is a soft tissue nodule measuring 1.3 x 1.5 CM with hypermetabolism seen at the undersurface of the medial aspect of the right 11th rib is probably an intercostal metastasis. There is a large centrally necrotic and peripherally significant hypermetabolic mass in the retroperitoneum anterior pararenal space anterior to the left kidney measuring 5.6 x 6.3 CM compared to 4 x 3.1 CM previously. Another mass in the right lower quadrant along the deep abdominal wall layers with extraperitoneal extension towards to the abdominal cavity. This mass measures 5.7 x 5.6 CM compared to 3.9 x 3.2 CM on the previous exam. IMPRESSION: 1. 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 Brain MRI evaluation is recommended. 2. Interval enlargement of multiple hypermetabolic metastasis in the chest and abdomen as described. The findings were discussed with Ms. Ailyn Gary, oncology nurse practitioner by Dr. Limon at time of dictation. Dictated by: Dictated on workstation # [id number]
== END ==
LOC: RAD 11:17
PROVIDERS: ATTEND Internal Medicine Hematology & Oncology
DX: C34.11 Malignant neoplasm of upper lobe, right bronchus or lung (principal); C76.2 Malignant neoplasm of abdomen

== ENCOUNTER → 2016-11-27 | Outpatient (CLI) | payer MEDICARE ==
--- NOTE | 2016-11-27 11:39 | Diagnostic Imaging Report ---
Clinical indication: Patient diagnosed with lung cancer about 6 months ago. Patient has had chemoradiation treatment. Exam: MRI of the brain performed without IV contrast. Sequences include axial DWI, ADC map, axial T2, axial FLAIR, axial T1, coronal gradient echo, and sagittal T1. Comparison: Head CT without and with IV contrast dated 06/09/2016. Findings: There is interval development of a 1.8 cm x 1.8 cm rounded low signal density in the left parietal lobe with small to moderate amount of adjacent parenchymal edema. There is also interval development of a 1.6 cm x 2.1 cm low-density lesion in the lateral left frontal lobe with small to moderate amount of adjacent confluent high T2 signal. These findings are concerning for metastatic disease. There is no other areas concerning for intraparenchymal lesions. There is focal areas of high T2 signal white matter changes scattered throughout both cerebral hemispheres, likely representing chronic small vessel ischemic disease. There is brain parenchymal volume loss which appears appropriate for patient's age. There is no evidence of hydrocephalus or intracranial hemorrhage. There is no midline shift or brain herniation. Basal cisterns are unremarkable. The quechan of [place] vascular structures show no gross abnormality as visualized. Intracranial soft tissue, skull, and orbits show no significant abnormality. There is mild mucosal thickening involving both maxillary sinuses and ethmoid sinuses. IMPRESSION: 1: There is interval development of 2 low signal masses in the lateral left frontal lobe and left parietal lobe region with adjacent parenchymal edema concerning for metastatic disease. There is no evidence of brain herniation or intraparenchymal hemorrhage. 2: Age-related brain parenchymal changes with chronic small vessel ischemic disease. 3: Mild paranasal sinus disease. Report was called to Denisse/financial administration officer of Ailyn Gary by kaycee at 11:40 am. Dictated by: Dictated on workstation # [id number]
== END ==
LOC: RAD 09:27
PROVIDERS: ATTEND Nurse Practitioner Adult Health
DX: C34.11 Malignant neoplasm of upper lobe, right bronchus or lung (principal); C79.89 Secondary malignant neoplasm of other specified sites; R42 Dizziness and giddiness
CPT/HCPCS: 70551

== ENCOUNTER 2016-12-05 14:09 | Outpatient (RCR) | payer MEDICARE ==
--- OUTSIDE RECORDS SUMMARY | 2016-09-10 13:57 | XMS REPORT | Continuity of Care Document ---
Author Author [facility] Organization [facility] Address Unknown Phone Unavailable Care Team Providers Care Lacquer Sprayer Name Role Phone SHASHI COOLEY DO PCP Insurance Providers Payer Name Policy Number Subscriber Name Relationship Wps Medicare [id number] Ignacio Szymanski 18 Self / Same As Patient Blue Cross [facility] Supp [id number] Ignacio Szymanski 18 Self / Same As Patient Advance Directives Directive Response Recorded Date/Time Advance Directives No 04/11/16 12:32pm Health Care Power of Spray I Painter No 04/11/16 12:32pm Organ Donor No 04/11/16 [...] Produc Allergy Unknown RASH Active 03/28/16 Penicillins ([id number]) Allergy Unknown HIVES Active 03/28/16 Immunizations No immunization records. Vital Signs Acute Vital Signs Vital Response Date/Time Temperature (Fahrenheit) 98.0 degrees F (97.6 - 99.5) 03/31/2016 1:25pm Temperature (Calculated Celsius) 36.66464 degrees C (36.4 - 37.5) 03/31/2016 1:25pm [...] 9.00 inches 04/11/2016 12:32pm Height (Calculated Centimeters) 175.143893 cm 04/11/2016 12:32pm Weight (Pounds) 145 pounds 04/11/2016 12:32pm Weight (Ounces) 0.0 oz 04/11/2016 12:32pm Weight (Calculated Grams) 95767.894 gm 04/11/2016 12:32pm Weight (Calculated Kilograms) 65.358461 kilograms 04/11/2016 12:32pm Calculated BMI 24.13 04/11/2016 [...] Discharge/Depart Date Attending Provider Departed Clinic [facility] 04/11/16 5:33am 04/11/16 12: 45pm BRITTNEY STUART DO Registered Clinic [facility] 04/08/16 9:58am PETER NIELSON DO Departed [facility] 03/31/16 7:53am 1:30pm PETER NIELSON DO Departed Clinic [facility] 03/28/16 12:30pm 03/28/16 1: 02pm PETER NIELSON DO Registered Clinic [facility] 03/18/16 9:28am FRANTZ DUBOIS MD Registered Clinic [facility] 03/18/16 8:16am FRANTZ DUBOIS MD
[2016-09-10 14:15] LABS: BASOPHILS % (AUTO) 1 % (0-10); EOSINOPHILS # (AUTO) 0.3 10^3/uL (0.0-0.3); EOSINOPHILS % (AUTO) 5 % (0-10); LYMPHOCYTES # (AUTO) 0.5 X 10^3 (1.0-4.0); LYMPHOCYTES % (AUTO) 10 % (12-44); MEAN CORPUSCULAR HEMOGLOBIN 31 PG (25-34); MEAN CORPUSCULAR HGB CONC 32 G/DL (32-36); MEAN CORPUSCULAR VOLUME 96 FL (80-99); MEAN PLATELET VOLUME 9.2 FL (7.4-10.4); MONOCYTES # (AUTO) 0.8 X 10^3 (0.0-1.0); MONOCYTES % (AUTO) 17 % (0-12); NEUTROPHILS # (AUTO) 3.4 X 10^3 (1.8-7.8); NEUTROPHILS % (AUTO) 68 % (42-75); PLATELET COUNT 235 10^3/uL (130-400); RED BLOOD COUNT 3.57 10^6/uL (4.35-5.85); RED CELL DISTRIBUTION WIDTH 14.3 % (10.0-14.5)
[2016-09-10 14:38] LABS: CALCIUM 9.4 MG/DL (8.5-10.1); CREATININE SERUM 1.55 MG/DL (0.60-1.30)
[2016-09-17 14:29] LABS: BASOPHILS % (AUTO) 0 % (0-10); EOSINOPHILS # (AUTO) 0.1 10^3/uL (0.0-0.3); EOSINOPHILS % (AUTO) 2 % (0-10); LYMPHOCYTES # (AUTO) 0.4 X 10^3 (1.0-4.0); LYMPHOCYTES % (AUTO) 7 % (12-44); MEAN CORPUSCULAR HEMOGLOBIN 31 PG (25-34); MEAN CORPUSCULAR HGB CONC 32 G/DL (32-36); MEAN CORPUSCULAR VOLUME 96 FL (80-99); MEAN PLATELET VOLUME 9.8 FL (7.4-10.4); MONOCYTES # (AUTO) 0.3 X 10^3 (0.0-1.0); MONOCYTES % (AUTO) 6 % (0-12); NEUTROPHILS # (AUTO) 4.6 X 10^3 (1.8-7.8); NEUTROPHILS % (AUTO) 85 % (42-75); PLATELET COUNT 179 10^3/uL (130-400); RED BLOOD COUNT 3.48 10^6/uL (4.35-5.85); RED CELL DISTRIBUTION WIDTH 14.1 % (10.0-14.5); WHITE BLOOD COUNT 5.4 10^3/uL (4.3-11.0)
[2016-09-17 15:22] LABS: CREATININE SERUM 1.36 MG/DL (0.60-1.30); POTASSIUM 3.9 MMOL/L (3.6-5.0)
[2016-09-24 14:50] LABS: BASOPHILS % (AUTO) 0 % (0-10); EOSINOPHILS # (AUTO) 0.1 10^3/uL (0.0-0.3); EOSINOPHILS % (AUTO) 1 % (0-10); LYMPHOCYTES # (AUTO) 0.7 X 10^3 (1.0-4.0); LYMPHOCYTES % (AUTO) 9 % (12-44); MEAN CORPUSCULAR HEMOGLOBIN 31 PG (25-34); MEAN CORPUSCULAR HGB CONC 32 G/DL (32-36); MEAN CORPUSCULAR VOLUME 97 FL (80-99); MEAN PLATELET VOLUME 9.6 FL (7.4-10.4); MONOCYTES # (AUTO) 0.6 X 10^3 (0.0-1.0); MONOCYTES % (AUTO) 8 % (0-12); NEUTROPHILS # (AUTO) 6.3 X 10^3 (1.8-7.8); NEUTROPHILS % (AUTO) 82 % (42-75); PLATELET COUNT 144 10^3/uL (130-400); RED BLOOD COUNT 3.62 10^6/uL (4.35-5.85); RED CELL DISTRIBUTION WIDTH 14.7 % (10.0-14.5); WHITE BLOOD COUNT 7.7 10^3/uL (4.3-11.0)
[2016-09-24 15:35] LABS: CALCIUM 9.7 MG/DL (8.5-10.1); CREATININE SERUM 1.48 MG/DL (0.60-1.30); POTASSIUM 4.1 MMOL/L (3.6-5.0)
[2016-10-01 14:44] LABS: BASOPHILS % (AUTO) 1 % (0-10); EOSINOPHILS % (AUTO) 1 % (0-10); LYMPHOCYTES # (AUTO) 0.6 X 10^3 (1.0-4.0); LYMPHOCYTES % (AUTO) 8 % (12-44); MEAN CORPUSCULAR HEMOGLOBIN 31 PG (25-34); MEAN CORPUSCULAR HGB CONC 32 G/DL (32-36); MEAN CORPUSCULAR VOLUME 96 FL (80-99); MEAN PLATELET VOLUME 9.2 FL (7.4-10.4); MONOCYTES # (AUTO) 0.9 X 10^3 (0.0-1.0); MONOCYTES % (AUTO) 13 % (0-12); NEUTROPHILS # (AUTO) 5.8 X 10^3 (1.8-7.8); NEUTROPHILS % (AUTO) 78 % (42-75); PLATELET COUNT 255 10^3/uL (130-400); RED BLOOD COUNT 3.53 10^6/uL (4.35-5.85); RED CELL DISTRIBUTION WIDTH 14.3 % (10.0-14.5); WHITE BLOOD COUNT 7.4 10^3/uL (4.3-11.0)
[2016-10-01 15:16] LABS: CALCIUM 9.3 MG/DL (8.5-10.1); CREATININE SERUM 1.45 MG/DL (0.60-1.30)
[2016-10-06 14:34] LABS: MEAN CORPUSCULAR HEMOGLOBIN 30 PG (25-34); MEAN CORPUSCULAR HGB CONC 32 G/DL (32-36); MEAN CORPUSCULAR VOLUME 95 FL (80-99); MEAN PLATELET VOLUME 9.2 FL (7.4-10.4); PLATELET COUNT 338 10^3/uL (130-400); RED BLOOD COUNT 3.55 10^6/uL (4.35-5.85); WHITE BLOOD COUNT 6.8 10^3/uL (4.3-11.0)
[2016-10-06 14:35] LABS: BASOPHILS % (AUTO) 1 % (0-10); EOSINOPHILS # (AUTO) 0.1 10^3/uL (0.0-0.3); EOSINOPHILS % (AUTO) 1 % (0-10); LYMPHOCYTES # (AUTO) 0.8 X 10^3 (1.0-4.0); LYMPHOCYTES % (AUTO) 11 % (12-44); MONOCYTES # (AUTO) 1.2 X 10^3 (0.0-1.0); MONOCYTES % (AUTO) 17 % (0-12); NEUTROPHILS # (AUTO) 4.8 X 10^3 (1.8-7.8); NEUTROPHILS % (AUTO) 71 % (42-75)
[2016-10-06 15:17] LABS: BILIRUBIN,TOTAL 0.2 MG/DL (0.1-1.0); CALCIUM 9.6 MG/DL (8.5-10.1); CREATININE SERUM 1.42 MG/DL (0.60-1.30); MAGNESIUM 1.8 MG/DL (1.8-2.4)
[2016-11-14 14:19] LABS: BASOPHILS % (AUTO) 1 % (0-10); EOSINOPHILS # (AUTO) 0.2 10^3/uL (0.0-0.3); EOSINOPHILS % (AUTO) 2 % (0-10); LYMPHOCYTES # (AUTO) 0.7 X 10^3 (1.0-4.0); LYMPHOCYTES % (AUTO) 12 % (12-44); MEAN CORPUSCULAR HEMOGLOBIN 28 PG (25-34); MEAN CORPUSCULAR HGB CONC 32 G/DL (32-36); MEAN CORPUSCULAR VOLUME 89 FL (80-99); MEAN PLATELET VOLUME 9.2 FL (7.4-10.4); MONOCYTES # (AUTO) 0.9 X 10^3 (0.0-1.0); MONOCYTES % (AUTO) 15 % (0-12); NEUTROPHILS # (AUTO) 4.4 X 10^3 (1.8-7.8); NEUTROPHILS % (AUTO) 71 % (42-75); PLATELET COUNT 281 10^3/uL (130-400); RED BLOOD COUNT 3.76 10^6/uL (4.35-5.85); RED CELL DISTRIBUTION WIDTH 14.5 % (10.0-14.5); WHITE BLOOD COUNT 6.2 10^3/uL (4.3-11.0)
[2016-11-14 14:34] LABS: ALBUMIN 3.6 G/DL (3.2-4.5); BILIRUBIN,TOTAL 0.4 MG/DL (0.1-1.0); CALCIUM 9.5 MG/DL (8.5-10.1); CREATININE SERUM 1.51 MG/DL (0.60-1.30); POTASSIUM 4.1 MMOL/L (3.6-5.0)
[2016-11-25 11:07] LABS: BASOPHILS % (AUTO) 0 % (0-10); EOSINOPHILS % (AUTO) 1 % (0-10); LYMPHOCYTES # (AUTO) 0.4 X 10^3 (1.0-4.0); LYMPHOCYTES % (AUTO) 8 % (12-44); MEAN CORPUSCULAR HEMOGLOBIN 28 PG (25-34); MEAN CORPUSCULAR HGB CONC 32 G/DL (32-36); MEAN CORPUSCULAR VOLUME 86 FL (80-99); MEAN PLATELET VOLUME 8.6 FL (7.4-10.4); MONOCYTES # (AUTO) 0.4 X 10^3 (0.0-1.0); MONOCYTES % (AUTO) 8 % (0-12); NEUTROPHILS # (AUTO) 4.6 X 10^3 (1.8-7.8); NEUTROPHILS % (AUTO) 83 % (42-75); PLATELET COUNT 245 10^3/uL (130-400); RED BLOOD COUNT 3.91 10^6/uL (4.35-5.85); RED CELL DISTRIBUTION WIDTH 15.1 % (10.0-14.5); WHITE BLOOD COUNT 5.5 10^3/uL (4.3-11.0)
[2016-11-25 11:38] LABS: CALCIUM 9.8 MG/DL (8.5-10.1); CREATININE SERUM 1.81 MG/DL (0.60-1.30); POTASSIUM 4.3 MMOL/L (3.6-5.0)
[2016-12-02 14:27] LABS: BASOPHILS % (AUTO) 0 % (0-10); EOSINOPHILS % (AUTO) 0 % (0-10); LYMPHOCYTES # (AUTO) 0.2 X 10^3 (1.0-4.0); LYMPHOCYTES % (AUTO) 3 % (12-44); MEAN CORPUSCULAR HEMOGLOBIN 27 PG (25-34); MEAN CORPUSCULAR HGB CONC 32 G/DL (32-36); MEAN CORPUSCULAR VOLUME 85 FL (80-99); MEAN PLATELET VOLUME 8.9 FL (7.4-10.4); MONOCYTES # (AUTO) 0.4 X 10^3 (0.0-1.0); MONOCYTES % (AUTO) 6 % (0-12); NEUTROPHILS # (AUTO) 6.2 X 10^3 (1.8-7.8); NEUTROPHILS % (AUTO) 91 % (42-75); PLATELET COUNT 134 10^3/uL (130-400); RED BLOOD COUNT 4.14 10^6/uL (4.35-5.85); RED CELL DISTRIBUTION WIDTH 15.7 % (10.0-14.5); WHITE BLOOD COUNT 6.8 10^3/uL (4.3-11.0)
[2016-12-02 15:31] LABS: CALCIUM 9.5 MG/DL (8.5-10.1); CREATININE SERUM 1.44 MG/DL (0.60-1.30); POTASSIUM 4.2 MMOL/L (3.6-5.0)
[~2016-12-05] VITALS: Ht 170.2 cm; Wt 67.6 kg
[~2016-12-05 14:09] MED LIST changes: -APIX5TAB PO; +CARBOPLATIN IV SCH; +D5W IV SCH; -DEXA4TAB PO; +ETOPOSIDE IV SCH; +FAMOTIDINE 20MG/2ML IV (CANCER CTR) IV SCH; -FLUT16SP22 NS; +FOSAPREPITANT 150 MG/NS 150 MG IVPB (CANCER CTR) IV PRN; +GEMCITABINE HCL (GENERIC) 1,000 MG, GEMCITABINE HCL (GENERIC) 500 MG in NS (IVPB) CANCE... IV SCH; -IPRA4AER IH; -LACT10SO5 PO; +NORMAL SALINE IV SCH; +NS IV 1000 ML (CANCER CTR) IV SCH; +NS IV 500 ML (CANCER CENTER) IV SCH; +ONDANSETRON 16 MG, DEXAMETHASONE 10 MG/NS 50 ML IVPB IV SCH; -OXYC-465 PO; +PEGFILGRASTIM 6 MG/0.6 ML KIT SQ ONE
[2016-12-08] MEDS ORDERED: ATOR40TA PO ×2 (09:29)
[2016-12-08] MEDS ORDERED: APIX5TAB PO ×2 (09:29)
[2016-12-08] MEDS ORDERED: LACT10SO5 PO ×2 (09:29)
[2016-12-08] MEDS ORDERED: DEXA4TAB PO ×2 (09:29)
[2016-12-08] MEDS ORDERED: OXYC-465 PO ×2 (09:29)
[2016-12-08] MEDS ORDERED: IPRA4AER IH ×2 (09:30)
[2016-12-08] MEDS ORDERED: FLUT16SP22 NS ×2 (09:30)
== END 2016-12-09 | disposition home or self-care (01) ==
LOC: ONC 14:09
PROVIDERS: ATTEND Internal Medicine Hematology & Oncology
DX: Z51.11 Encounter for antineoplastic chemotherapy (principal); Z51.0 Encounter for antineoplastic radiation therapy; C34.11 Malignant neoplasm of upper lobe, right bronchus or lung; C77.1 Secondary and unspecified malignant neoplasm of intrathoracic lymph nodes; C79.89 Secondary malignant neoplasm of other specified sites; J44.9 Chronic obstructive pulmonary disease, unspecified; I10 Essential (primary) hypertension; I25.10 Atherosclerotic heart disease of native coronary artery without angina pectoris; Z79.899 Other long term (current) drug therapy; Z87.891 Personal history of nicotine dependence; Z79.01 Long term (current) use of anticoagulants
CPT/HCPCS: 36415; 36591; 77290; 77295; 77332; 77334; 77417; 77470; 80048; 80053; 83735; 85025; 96375; 96413; 96417; 99213; 99214

== ENCOUNTER 2016-12-07 13:21 | Inpatient (IN) | payer MEDICARE ==
[~2016-12-07] VITALS: Ht 177.8 cm; Wt 60.0 kg
[~2016-12-07 13:21] MED LIST changes: -CARBOPLATIN IV SCH; -D5W IV SCH; -ETOPOSIDE IV SCH; -FAMOTIDINE 20MG/2ML IV (CANCER CTR) IV SCH; -FOSAPREPITANT 150 MG/NS 150 MG IVPB (CANCER CTR) IV PRN; -GEMCITABINE HCL (GENERIC) 1,000 MG, GEMCITABINE HCL (GENERIC) 500 MG in NS (IVPB) CANCE... IV SCH; -NORMAL SALINE IV SCH; -NS IV 1000 ML (CANCER CTR) IV SCH; -NS IV 500 ML (CANCER CENTER) IV SCH; -ONDANSETRON 16 MG, DEXAMETHASONE 10 MG/NS 50 ML IVPB IV SCH; -PEGFILGRASTIM 6 MG/0.6 ML KIT SQ ONE
--- NOTE | 2016-12-07 14:29 | ED Trauma-Multisystem ---
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 The patient has become progressively more weak in the last several weeks due to poor oral intake. The patient fell today precipitating this presentation the emergency department. He sustained abrasions to his forehead. He had no loss of consciousness. He denies secondary neck pain. He's had no paresthesias or weakness in extremities. He denies other injury in this fall today. He is under the care Dr. Tucker. Allergies and Home Medications Allergies Coded Allergies: Iodine and Iodide Containing Produc (Verified Allergy, Unknown, RASH, 03/28) Penicillins (Verified Allergy, Unknown, HIVES, 03/28/16) Home Medications Apixaban 2.5 Mg Tablet, 2.5 MG PO BID, (Reported) Atorvastatin Calcium 40 Mg Tablet, 40 MG PO HS, #30 Prescribed by: PAM STOVER on 11/07/16 1800 Lactulose 20 Gm/30 Ml Solution, 20 GM PO TID PRN for CONSTIPATION, #8 Prescribed by: DREW NAOPLES on 11/10/16 1157 Oxycodone HCl/Acetaminophen 1 Each Tablet, 1 EACH PO Q4H PRN for PAIN, #60 Prescribed by: DREW NAPOLES on 11/10/16 1157 Pantoprazole Sodium 40 Mg Tablet.dr, 40 MG PO DAILY, (Reported) Sertraline HCl 50 Mg Tablet, 25 MG PO DAILY, (Reported) take 1/2 of 50mg tab Constitutional: No chills, No fever, weakness Eyes: Denies Blurred Vision, Denies Photophobia Ears: Denies Dizziness Nose: No Bloody Discharge Mouth: No Bloody Discharge Throat: Painful Swallowing Respiratory: cough Cardiovascular: Denies Chest Pain Gastrointestinal: abdominal pain, No diarrhea, nausea, No vomiting Genitourinary: No dysuria, No frequency Past [id number]-[id number]-Wnawxt Hx Patient Social History Type Used: Cigarettes Recent Foreign Travel: No Contact w/Someone Who Travel: No Immunizations Up To Date Date of Pneumonia Vaccine: Mar 24, 2016 Date of Influenza Vaccine: Jun 09, 2016 Seasonal Allergies Seasonal Allergies: Yes Surgeries HX Surgeries: Yes (Ing hernia, knee scope, ) Respiratory Hx Respiratory Disorders: Yes Respiratory Disorders: COPD Cardiovascular Hx Cardiac Disorders: Yes Neurological Hx Neurological Disorders: No Reproductive System Sexually Transmitted Disease: No HIV/AIDS: No Genitourinary Hx Genitourinary Disorders: No Gastrointestinal Hx Gastrointestinal Disorders: Yes Gastrointestinal Disorders: Gastroesophageal Reflux Musculoskeletal Hx Musculoskeletal Disorders: Yes Musculoskeletal Disorders: Arthritis Endocrine Hx Endocrine Disorders: No HEENT HX ENT Disorders: Yes (GLASSES, DENTURES) Loss of Vision: Bilateral Hearing Impairment: Hard of Hearing Cancer Hx Cancer: Yes Cancer: Lung Psychosocial Hx Psychiatric Problems: Yes Behavioral Health Disorders: Depression Integumentary HX Skin/Integumentary Disorder: No Blood Transfusions Hx Blood Disorders: No Adverse Reaction to a Blood Tr: No (N/A) Reviewed Nursing Assessment Reviewed/Agree w Nursing PMH: Yes Family Medical History Family Medial History: BREAST CA Cancer of mouth G8 SISTER LUNG CA 19 FATHER G8 BROTHER Physical Exam Vital Signs Vital Sign - Last 12Hours 12/07/16 14:10 Temp 98.2 Pulse 73 Resp 18 B/P (MAP) 120/99 General Appearance: Chronically ill Head: Other Eyes: Bilateral Eye Normal Inspection Ears, Nose, Throat: Hearing Grossly Normal Neck: Full Range of Motion, Normal Inspection, Non Tender Cardiovascular: Regular Rate, Rhythm, No Edema Respiratory: Lungs Clear, Decreased Breath Sounds Gastrointestinal: Normal Bowel Sounds, Non Tender Back: Normal Inspection Extremity: Normal Inspection, Non Tender Neurologic/Psychiatric: Alert, Oriented x3, No Motor/Sensory Deficits Skin: Normal Color, Warm/Dry Progress/Results/Core Measures Results/Orders Lab Results Laboratory Tests Test 12/07/16 14:24 Range/Units White Blood Count 11.9 H 4.3-11.0 10^3/uL Red Blood Count 4.45 4.35-5.85 10^6/uL Hemoglobin 12.4 L 13.3-17.7 G/DL Hematocrit 38 L 40-54 % Mean Corpuscular Volume 85 80-99 FL Mean Corpuscular Hemoglobin 28 25-34 PG Mean Corpuscular Hemoglobin Concent 33 32-36 G/DL Red Cell Distribution Width 17.6 H 10.0-14.5 % Platelet Count 251 130-400 10^3/uL Mean Platelet Volume 10.3 7.4-10.4 FL Neutrophils (%) (Auto) 86 H 42-75 % Lymphocytes (%) (Auto) 3 L 12-44 % Monocytes (%) (Auto) 11 0-12 % Eosinophils (%) (Auto) 0 0-10 % Basophils (%) (Auto) 0 0-10 % Neutrophils # (Auto) 10.2 H 1.8-7.8 X 10^3 Lymphocytes # (Auto) 0.3 L 1.0-4.0 X 10^3 Monocytes # (Auto) 1.4 H 0.0-1.0 X 10^3 Eosinophils # (Auto) 0.0 0.0-0.3 10^3/uL Basophils # (Auto) 0.0 0.0-0.1 10^3/uL My Orders Orders - YASMEEN SOTO MD Cbc With Automated Diff (12/07/16 14:19) Comprehensive Metabolic Panel (12/07/16 14:19) Ua Culture If Indicated (12/07/16 14:19) Lipase (12/07/16 14:19) Ct Head Wo (12/07/16 14:19) Ns Iv 1000 Ml (Sodium Chloride 0.9%) (12/07/16 14:30) Dipht,Pertuss(Acell),Tet Adult (Boostrix (12/07/16 14:30) Manual Differential (12/07/16 14:24) Medications Given in ED Current Medications Medications Dose Ordered Sig/Kenyatta Route Start Time Stop Time Status Last Admin Dose Admin Diphtheria/ Tetanus/Acell Pertussis 0.5 ml ONCE ONCE IM 12/07/16 14:30 12/07/16 14:31 DC 12/07/16 14:34 0.5 ML Vital Signs/I&O Vital Sign - Last 12Hours 12/07/16 14:10 Temp 98.2 Pulse 73 Resp 18 B/P (MAP) 120/99 Progress Note : Time: 14:38 Progress Note I discussed patient's presentation with Dr. Tucker who is kind enough to admit the patient for respite care and observation bed. CT of his head and laboratory evaluation has been initiated. Orders were given written and patient will be transferred to the floor. Departure Communication Time/Spoke to Admitting Phy: 14:[address] Huston. Impression Impression: Primary Impression: Fall Qualified Codes: W19.XXXA - Unspecified fall, initial encounter Additional Impression: Metastatic cancer Disposition: 09 ADMITTED INPATIENT Condition: Improved Decision to Admit Reason: Admit from ER (General) Decision to Admit/Date: Dec 07, 2016 Time/Decision to Admit Time: 14:41 Departure-Patient Inst. Referrals: SHASHI COOLEY DO (PCP/Family) Primary Care Physician YASMEEN SOTO MD Dec 07, 2016 14:28
[2016-12-07 14:30] LABS: BASOPHILS % (AUTO) 0 % (0-10); EOSINOPHILS % (AUTO) 0 % (0-10); LYMPHOCYTES # (AUTO) 0.3 X 10^3 (1.0-4.0); LYMPHOCYTES % (AUTO) 3 % (12-44); MEAN CORPUSCULAR HEMOGLOBIN 28 PG (25-34); MEAN CORPUSCULAR HGB CONC 33 G/DL (32-36); MEAN CORPUSCULAR VOLUME 85 FL (80-99); MEAN PLATELET VOLUME 10.3 FL (7.4-10.4); MONOCYTES # (AUTO) 1.4 X 10^3 (0.0-1.0); MONOCYTES % (AUTO) 11 % (0-12); NEUTROPHILS # (AUTO) 10.2 X 10^3 (1.8-7.8); NEUTROPHILS % (AUTO) 86 % (42-75); PLATELET COUNT 251 10^3/uL (130-400); RED BLOOD COUNT 4.45 10^6/uL (4.35-5.85); RED CELL DISTRIBUTION WIDTH 17.6 % (10.0-14.5); WHITE BLOOD COUNT 11.9 10^3/uL (4.3-11.0)
[2016-12-07] MEDS ORDERED: TETANUS,DIPTH,PERTUSS P/F (BOOSTRIX) 0.5 ML VIAL IM ONE (14:30)
[2016-12-07] MEDS ORDERED: NS IV 1000 ML 1,000 ML IV SCH (14:30)
[2016-12-07 14:47] LABS: BILIRUBIN,URINE NEGATIVE (NEGATIVE); KETONES,URINE NEGATIVE (NEGATIVE); LEUKOCYTE ESTERASE ,URINE NEGATIVE (NEGATIVE); NITRITE,URINE NEGATIVE (NEGATIVE); PH,URINE 6 (5-9); PROTEIN,URINE 1+ (NEGATIVE); UROBILINOGEN,URINE NORMAL (NORMAL)
[2016-12-07 14:53] LABS: ANISOCYTOSIS MODERATE; BAND NEUTROPHILS 0 %; BASOPHILS % (MANUAL) 0 %; EOSINOPHILS % (MANUAL) 0 %; LYMPHOCYTES % (MANUAL) 4 %; NEUTROPHILS % (MANUAL) 89 %
[2016-12-07 14:55] LABS: ALBUMIN 3.3 G/DL (3.2-4.5); BILIRUBIN,TOTAL 0.5 MG/DL (0.1-1.0); CALCIUM 9.2 MG/DL (8.5-10.1); CREATININE SERUM 1.35 MG/DL (0.60-1.30); POTASSIUM 4.5 MMOL/L (3.6-5.0); TOTAL PROTEIN 6.3 G/DL (6.4-8.2)
[2016-12-07 16:00] VITALS: BP 164/83
[2016-12-07] MEDS ORDERED: oxyCODONE/APAP 5/325MG (PERCOCET 5) TABLET PO PRN (16:00)
[2016-12-07] MEDS ORDERED: ONDANSETRON 4 MG (ZOFRAN) ORAL DISSOLVE TAB PO PRN (16:00)
--- NOTE | 2016-12-07 16:18 | Diagnostic Imaging Report ---
PROCEDURE: CT head without contrast. TECHNIQUE: Multiple contiguous axial images were obtained through the brain without the use of intravenous contrast. INDICATION: Fall, head, abrasion. COMPARISON: June 09, 2016 FINDINGS: Mild atrophy. Rounded hyperdensity within the posterior left parietal lobe with associated adjacent hypodensity is identified. This appears similar to the recent MRI. Additional hypodensity within the left frontal lobe with associated rounded hyperdensity is identified, appearing stable from the recent MRI. Recent MRI demonstrated focal mass lesions with adjacent edema. No intracranial hemorrhage. Periventricular and subcortical white matter hypodensities are present, most consistent with mild chronic small vessel white matter ischemic disease. No definite additional intracranial mass. No midline shift, herniation, hydrocephalus, or extra-axial fluid collection. Chronic lacunar infarction within the anterior limb of the right internal capsule. No definite CT evidence of an acute ischemic infarction. The bilateral ocular lenses are absent. Small left frontal scalp hematoma/swelling. The underlying calvarium is intact. The visualized paranasal sinuses are clear. Suzanna bullosa of the left middle turbinate. The paranasal sinuses are clear. IMPRESSION: 1. Mass lesions within the left frontal and parietal lobes with adjacent edema are again identified. These appear similar to the recent MRI when accounting for differences in modality. No definite new mass lesion identified. 2. No intracranial hemorrhage or midline shift. 3. Mild atrophy with associated stable chronic ischemic changes. 4. Minimal left frontal scalp swelling and hematoma without underlying calvarial fracture. Dictated by: Dictated on workstation # [id number]
[2016-12-07] MEDS: NS IV 1000 ML 1,000 ML IV SCH (16:28)
[2016-12-07 20:00] VITALS: BP 124/82
[2016-12-07] MEDS: DEXAMETHASONE 4 MG TAB (DECADRON) PO SCH (20:32)
[2016-12-08] VITALS: BP 138/93
[2016-12-08] MEDS: NS IV 1000 ML 1,000 ML IV SCH (02:40)
[2016-12-08 04:00] VITALS: BP 142/85
[2016-12-08 05:52] LABS: BASOPHILS % (AUTO) 0 % (0-10); EOSINOPHILS % (AUTO) 0 % (0-10); LYMPHOCYTES # (AUTO) 0.4 X 10^3 (1.0-4.0); LYMPHOCYTES % (AUTO) 5 % (12-44); MEAN CORPUSCULAR HEMOGLOBIN 28 PG (25-34); MEAN CORPUSCULAR HGB CONC 33 G/DL (32-36); MEAN CORPUSCULAR VOLUME 85 FL (80-99); MONOCYTES # (AUTO) 0.4 X 10^3 (0.0-1.0); MONOCYTES % (AUTO) 4 % (0-12); NEUTROPHILS # (AUTO) 7.2 X 10^3 (1.8-7.8); NEUTROPHILS % (AUTO) 90 % (42-75); PLATELET COUNT 221 10^3/uL (130-400); RED CELL DISTRIBUTION WIDTH 17.6 % (10.0-14.5)
[2016-12-08 06:22] LABS: ALANINE AMINOTRANSFERASE 77 U/L (0-55); ALBUMIN 2.9 G/DL (3.2-4.5); ANION GAP 9 MMOL/L (5-14); ASPARTATE AMINO TRANSFERASE 34 U/L (5-34); BILIRUBIN,TOTAL 0.6 MG/DL (0.1-1.0); BLOOD UREA NITROGEN 34 MG/DL (7-18); BUN/CREATININE RATIO 31; CALCIUM 8.2 MG/DL (8.5-10.1); CARBON DIOXIDE 24 MMOL/L (21-32); CHLORIDE 103 MMOL/L (98-107); CREATININE SERUM 1.09 MG/DL (0.60-1.30); GFR ESTIMATED > 60; GLUCOSE 97 MG/DL (70-105); POTASSIUM 4.2 MMOL/L (3.6-5.0); SODIUM 136 MMOL/L (135-145); TOTAL PROTEIN 5.6 G/DL (6.4-8.2)
[2016-12-08 08:00] VITALS: BP 146/68
[2016-12-08] MEDS: DEXAMETHASONE 4 MG TAB (DECADRON) PO SCH ×2 (08:33→20:23)
[2016-12-08] MEDS ORDERED: CATHETER FLUSH 10 ML SYR IV PRN (09:00)
[2016-12-08] MEDS ORDERED: LACTULOSE SYRUP 10GM/15ML (ENULOSE) 30ML UDC PO PRN ×2 (09:15→17:45)
[2016-12-08] MEDS ORDERED: LACT10SO5 PO (09:29)
[2016-12-08] MEDS ORDERED: ATOR40TA PO (09:29)
[2016-12-08] MEDS ORDERED: APIX5TAB PO (09:29)
[2016-12-08] MEDS ORDERED: DEXA4TAB PO (09:29)
[2016-12-08] MEDS ORDERED: OXYC-465 PO (09:29)
[2016-12-08] MEDS ORDERED: FLUT16SP22 NS (09:30)
[2016-12-08] MEDS ORDERED: IPRA4AER IH (09:30)
[2016-12-08] MEDS: FLUCONAZOLE 100 MG/50 ML 50 ML IV SCH (10:39)
[2016-12-08] MEDS: NYSTATIN ORAL SUSP 5 ML UDC PO SCH ×4 (10:40→20:23)
[2016-12-08] MEDS: AA 4.25% W/LYTES IN D5W IV SOL 1,000 ML IV SCH ×3 (10:40→20:23)
[2016-12-08 12:00] VITALS: BP 143/87
[2016-12-08 16:00] VITALS: BP 129/89
[2016-12-08] MEDS ORDERED: RT-ALBUTEROL/IPRATROPIUM 3 ML (DUONEB) VIAL IH PRN (17:45)
[2016-12-08] MEDS: PANTOPRAZOLE 40 MG (PROTONIX) TAB PO SCH (17:47)
[2016-12-08] MEDS ORDERED: DEXAMETHASONE 4 MG TAB (DECADRON) PO SCH (18:00)
[2016-12-08] MEDS ORDERED: PANTOPRAZOLE 40 MG (PROTONIX) TAB PO SCH (19:00)
[2016-12-08 20:00] VITALS: BP 133/85
[2016-12-08] MEDS ORDERED: oxyCODONE/APAP 5/325MG (PERCOCET 5) TABLET PO PRN (20:00)
[2016-12-08] MEDS: APIXABAN 5 MG (ELIQUIS) TABLET PO SCH (20:23)
[2016-12-08] MEDS: ATORVASTATIN 20 MG (LIPITOR) TABLET PO SCH (20:27)
[2016-12-09 04:25] VITALS: BP 138/85
[2016-12-09] MEDS: AA 4.25% W/LYTES IN D5W IV SOL 1,000 ML IV SCH ×3 (04:39→21:50)
[2016-12-09 04:55] LABS: BASOPHILS % (AUTO) 0 % (0-10); EOSINOPHILS % (AUTO) 0 % (0-10); LYMPHOCYTES # (AUTO) 0.3 X 10^3 (1.0-4.0); LYMPHOCYTES % (AUTO) 3 % (12-44); MEAN CORPUSCULAR HEMOGLOBIN 28 PG (25-34); MEAN CORPUSCULAR HGB CONC 33 G/DL (32-36); MEAN CORPUSCULAR VOLUME 84 FL (80-99); MEAN PLATELET VOLUME 10.5 FL (7.4-10.4); MONOCYTES # (AUTO) 0.9 X 10^3 (0.0-1.0); MONOCYTES % (AUTO) 8 % (0-12); NEUTROPHILS # (AUTO) 10.1 X 10^3 (1.8-7.8); NEUTROPHILS % (AUTO) 89 % (42-75); PLATELET COUNT 286 10^3/uL (130-400); WHITE BLOOD COUNT 11.4 10^3/uL (4.3-11.0)
[2016-12-09 05:25] LABS: CALCIUM 9.1 MG/DL (8.5-10.1); CREATININE SERUM 1.17 MG/DL (0.60-1.30); MAGNESIUM 2.4 MG/DL (1.8-2.4); POTASSIUM 4.6 MMOL/L (3.6-5.0)
[2016-12-09] MEDS: PANTOPRAZOLE 40 MG (PROTONIX) TAB PO SCH (05:59)
[2016-12-09 08:00] VITALS: BP 154/95
[2016-12-09] MEDS: NYSTATIN ORAL SUSP 5 ML UDC PO SCH ×4 (08:24→20:26)
[2016-12-09] MEDS: SERTRALINE 50 MG (ZOLOFT) TABLET PO SCH (08:24)
[2016-12-09] MEDS: DEXAMETHASONE 4 MG TAB (DECADRON) PO SCH ×4 (08:24→20:26)
[2016-12-09] MEDS: FLUCONAZOLE 100 MG/50 ML 50 ML IV SCH (08:24)
[2016-12-09] MEDS: APIXABAN 5 MG (ELIQUIS) TABLET PO SCH ×2 (08:25→20:26)
--- NOTE | 2016-12-09 09:38 | HISTORY AND PHYSICAL ---
DATE OF ADMISSION: 12/07/2016 The patient is admitted to Room 416. PRESENTING COMPLAINT: History of fall. HISTORY OF PRESENT ILLNESS: Mr. 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 He underwent combined chemotherapy and radiation using cisplatinum and etoposide regimen for 2 cycles followed by 2 additional cycles of chemotherapy using the same regimen. He was diagnosed with metastatic disease to the abdomen approximately a month ago and as part of restaging had a PET CT scan which showed possible brain metastasis. He had an MRI of the brain, which showed 2 lesions in the left frontoparietal area with significant edema. He was started on dexamethasone to reduce the swelling and referred to radiation oncology for palliative radiation therapy which was started last week. The patient is living at home with his and was the primary caregiver for her. He has become weaker and did not have good balance or control and had a fall at home last evening injuring his forehead. He was brought to the emergency room by family and was admitted to the hospital. PAST MEDICAL HISTORY: 1. Significant for: Stage IIIA adenocarcinoma of the right upper lobe as mentioned above diagnosed in mid 2015, and metastatic disease to brain treated as mentioned above. 2. He has a history of chronic atrial fibrillation for approximately a year and he is on medical therapy as well as anticoagulation. 3. History of hypertension and hypercholesterolemia for which he is on treatment. 4. History of Brucellosis diagnosed in 1980. 5. Obstructive sleep apnea diagnosed approximately a year ago and is on CPAP machine. 6. History of osteoarthritis. PREVIOUS SURGERIES INCLUDE: 1. Tonsillectomy and adenoidectomy in childhood. 2. Left inguinal hernia repair in 1979. 3. Right knee arthroscopic evaluation in 2003, 4. Bronchoscopy with biopsies in 2016. SOCIAL HISTORY: The patient is and was living in [place], [place] with his . His is recovering from a CVA and the patient was the primary caregiver. He has 3 daughters, all of whom live close by. 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 He has 50 pack-year history of tobacco use and quit in June 2015. No alcohol or other recreational drug use. FAMILY HISTORY: Significant for his mother with an abdominal malignancy at the age of 79 years. Five had black lung from coal mining and lung malignancy at 62 years. His maternal grandmother having abdominal malignancy in early 60s. His brother of lung cancer at the age of 85 years. Sister was diagnosed with breast cancer at the age of 45 years. No other malignancies in the family that the patient knows of. PHYSICAL EXAMINATION: Physical examination today showed an elderly male, thin appearing, awake, and answering simple questions appropriately, although having difficulty remembering details. HEENT: Normocephalic, laceration of the forehead from his recent fall. Extraocular muscles intact, oral mucosa slightly dry, tongue coated and clinically consistent with candidiasis. NECK: Supple with no JVD. No lymphadenopathy palpable. CHEST EXAM: Showed left-sided port. LUNGS: With diminished breath sounds bilaterally without wheezes or rales. CARDIOVASCULAR EXAM: Regular with a controlled rate. No definite murmurs or gallops heard. ABDOMEN: Soft, nontender, with no hepatosplenomegaly palpable. The patient has bilateral soft tissue masses palpable on the abdominal wall, which is unchanged from a month ago. EXTREMITIES: Showed no edema. Chronic arthritic changes noted. 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 NEUROLOGICAL EXAM: Showed overall motor strength 4/5 bilaterally. No focal motor deficits noted. LABORATORY: CBC done at the emergency room yesterday evening showed WBC 11.9, hemoglobin 12.4, and platelet count of 251,000 with neutrophil count of 10.2. Repeat CBC today showed WBC 8.0, hemoglobin 11.4, and platelet count of 221,000 with neutrophil count of 7.2. Chemistry panel showed normal electrolytes. BUN was 41 and creatinine 1.35 yesterday afternoon but was better at 34 and 1.09 today. AST was elevated at 38 and ALT at 85 yesterday with slight improvement today. CT scan of the head done at the emergency room showed mass lesions within the left frontal and parietal lobes with adjacent edema, which appears similar to recent MRI. No new mass lesions or evidence of intracranial hemorrhage identified. Minimal left frontal scalp swelling and hematoma without underlying bony fractures. IMPRESSION: 1. History of fall with trauma to the forehead. 2. Left frontal and parietal brain metastasis with edema. Currently on dexamethasone 4 mg p.o. every 6 hours and I will continue this. Also started on radiation to whole brain palliatively last week. The patient has completed 3 treatments and I will continue this during his hospital stay. 3. History of stage IIIA adenocarcinoma of the lung diagnosed in mid 2016, status post combined chemoradiation using the cisplatinum and etoposide regimen followed by 2 additional courses of cisplatinum. 4. Abdominal metastatic disease with immunohistochemical profile different from the previous lung biopsy. The patient has no other definite sources of infection. The pathology report and the immunohistochemical profile of the abdominal wall metastasis was consistent with a lower GI primary. PLAN: 1. We will admit the patient to the hospital. 2. Because of poor oral intake and clinical dehydration, I will start him on Clinimix 2/Lytes at 125 mL per hour. 3. We will start him on Diflucan and nystatin swish and swallow because of clinic evidence of oral candidiasis. 4. Continue dexamethasone at 4 mg p.o. every 6 hours. 5. Continue radiation therapy palliatively. 6. We will obtain physical therapy consult for strengthening and ambulation. 7. I will obtain marriage and family social worker consult regarding discharge planning. The patient will not be able to take care of his at home and he is unable to take care of himself at this point. The patient had mentioned that both his and he is planning to move to a fdc in [place]. We will ask marriage and family social worker to coordinate this. His overall prognosis is poor. Job ID: [id number] Dictated Date: 12/08/2016 17:52:06 [employer] Dispatcher Date: 12/09/2016 09:10:55/chuck MARTINEZ
--- NOTE | 2016-12-09 09:46 | Physical Therapy Evaluation ---
PT Evaluation-General Medical Diagnosis Admission Date Dec 07, 2016 at 14:30 Medical Diagnosis: fall/head injury Onset Date: Dec 07, 2016 Therapy Diagnosis Therapy Diagnosis: general debility Height/Weight Height (Feet): 5 Height (Inches): 10.00 Weight (Pounds): 135 Weight (Ounces): 9.0 Precautions Precautions/Isolations: Fall Prevention, Standard Precautions Referral Physician: Robel Reason for Referral: Evaluation/Treatment Medical History Pertinent Medical History: Arthritis, COPD, GERD, Smoking Additional Medical History metastatic cancer to brain Current History increase weakness and fall at home Reviewed History: Yes Social History Home: Single Level Current Living Status: Spouse Prior/Core FIM Prior Level of Function Functional Powell Measure 0=Not Assessed/NA 4=Minimal Assistance 1=Total Assistance 5=Supervision or Setup 2=Maximal Assistance 6=Modified Powell 3=Moderate Assistance 7=Complete Powell Bed Mobility: 6 Transfers (B,C,W/C) (FIM): 6 Gait: 6 patient states he has FWW and uses it occasionally PT Evaluation-Current Subjective Patient is agreeable to participate with PT. Pain Numeric Pain Scale: 0-No Pain Location: No Pain Reported Objective Patient Orientation: Person, Time, Situation Problem Solving: Fair Attachments: IV ROM/Strength ROM Lower Extremities bilateral LE WFL Strenght Lower Extremities 4/5 grossly bilateral LE Integumentary/Posture Integumentary refer to nursing notes Bowel Incontinence: No Bladder Incontinence: No Posture WNL Neuromuscular (Tone, Coordination, Reflexes) grossly intact Sensory Vision: Wears Glasses Hearing: Impaired Sensation Right Lower Extremit: Intact Sensation Left Lower Extremity: Intact Transfers Functional Powell Measure 0=Not Assessed/NA 4=Minimal Assistance 1=Total Assistance 5=Supervision or Setup 2=Maximal Assistance 6=Modified Powell 3=Moderate Assistance 7=Complete Powell Transfers (B, C, W/C) (FIM): 5 Scootin Rollin Supine to/from Sit: 6 Sit to/from Stand: 5 SBA with gait belt in place for safety Gait Mode of Locomotion: Walk Anticipated Mode of Locomotion: Walk Gait (FIM): 5 Distance (FIM): 3=150 ft Distance: 500' Gait Level of Assist: 5 Gait Assistive Device: FWW Comments/Gait Description safe and functional with FWW Balance Sitting Static: Normal Sitting Dynamic: Normal Standing Static: Normal Standing Dynamic: Normal Assessment/Needs 86 y.o. male, will benefit from short term skilled PT to address functional mobility and strength to ensure safe return to home at maximum LOF. Rehab Potential: Guarded Post Rehab Potential-Barriers: metastatic cancer PT Short Term Goals Short Term Goals Time Frame: Dec 12, 2016 Transfers (B,C,W/C) (FIM): 6 Gait (FIM): 6 Distance (FIM): 3=150 ft Gait Distance Comment: 500' Gait Level of Assist: 6 Gait Assistive Device: FWW PT Plan Treatment/Plan Treatment Plan: Continue Plan of Care Treatment Plan: Education, Functional Activity Maco, Functional Strength, Gait , Safety, Therapeutic Exercise, Transfers Treatment Duration: Dec 12, 2016 # of days/week 4 Visits Per Week: 4 Pt/Family Agrees w/Plan: Yes Safety Risks/Education Patient Education: Safety Issues Teaching Recipient: Patient Teaching Methods: Demonstration, Discussion Response to Teaching: Verbalize Understanding, Return Demonstration Discharge Recommendations Therapy D/C Recommendations: Home w/ Family Support Time/GCodes Time In: 820 Time Out: 838 Total Billed Treatment Time: 18 Total Billed Treatment 1 visit EVLowC 18 min G Codes Necessary: Yes PT/OT Therapy GCodes Therapy Functional Limitation: Physical Therapy Test(s)/Tool used to determine: Level of Assistance Scale Functional Limitation-Current Charge Code: MOBCUR Modifier: CJ Functional Limitation-Goal Charge Code: ABDIRIZAK Modifier: BK PAYTON PT Dec 09, 2016 09:46
[2016-12-09 12:00] VITALS: BP 157/80
[2016-12-09 16:00] VITALS: BP 131/71
--- NOTE | 2016-12-09 16:46 | Progress Note-Standard ---
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 He has not been eating or drinking and was becoming progressively weaker. He also has increasing confusion. He is on dexamethasone 4 mg every 6 hours to reduce the cerebral edema. Today he answers simple questions appropriately although claims to be eating and drinking well. According to nursing staff he has been eating or drinking less than 10 percent of the meals. The laceration on the forehead is healing well. He is continuing radiation therapy daily and has completed 5 out of planned 10 treatments so far. His activity level is limited but stable. He is on Clinimix with electrolytes at 125 mL per hour and I will continue this. He is unable to take care of himself at home. Family is considering moving him to an assisted care facility in [place]. managed services sales consultant working with the patient and family regarding discharge planning. I will plan on keeping him on swing bed status until the radiation therapy is completed as transportation back and forth would not be feasible because of his weakened condition. Patient's daughter and son-in-law present in room today. I have also discussed the about hospice care and they are considering this. Labs from today was reviewed and is stable. Continue current management. ANDRZEJ TEE Dec 09, 2016 16:46
[2016-12-09 20:07] VITALS: BP 130/71
[2016-12-09] MEDS: ATORVASTATIN 20 MG (LIPITOR) TABLET PO SCH (20:26)
[2016-12-10] VITALS: BP 127/81
[2016-12-10 04:50] VITALS: BP 132/79
[2016-12-10] MEDS: AA 4.25% W/LYTES IN D5W IV SOL 1,000 ML IV SCH ×3 (05:53→22:38)
[2016-12-10] MEDS: PANTOPRAZOLE 40 MG (PROTONIX) TAB PO SCH (06:10)
[2016-12-10 08:00] VITALS: BP 125/80
[2016-12-10] MEDS: APIXABAN 5 MG (ELIQUIS) TABLET PO SCH ×2 (10:41→20:26)
[2016-12-10] MEDS: DEXAMETHASONE 4 MG TAB (DECADRON) PO SCH ×4 (10:41→20:26)
[2016-12-10] MEDS: SERTRALINE 50 MG (ZOLOFT) TABLET PO SCH (10:41)
[2016-12-10] MEDS: NYSTATIN ORAL SUSP 5 ML UDC PO SCH ×4 (10:42→20:26)
[2016-12-10] MEDS: FLUCONAZOLE 100 MG/50 ML 50 ML IV SCH (10:42)
[2016-12-10 12:00] VITALS: BP 121/75
--- NOTE | 2016-12-10 14:46 | Physical Therapy Daily Note ---
PT Daily Note-Current Subjective Pt supine in bed upon arrival. Pt agrees to walking for PT tx today. Pain Location: No Pain Reported Mental Status Patient Orientation: Person, Place, Time, Situation Attachments: IV Transfers Functional [place] Measure 0=Not Assessed/NA 4=Minimal Assistance 1=Total Assistance 5=Supervision or Setup 2=Maximal Assistance 6=Modified [place] 3=Moderate Assistance 7=Complete IndependenceIRFPAI Quality Coding Scale 6 Independent with activity with or without an assistive device 5 Patient requires set up or clean up by helper. Patient completes activity by themselves 4 Supervision or touching assist (CGA). [place] provide cues , steadying assist 3 The helper provides less than half the effort to complete the activity 2 The helper provides more than half the effort to complete the activity 1 Dependent. The helper does all the effort to complete an activity 7 Patient refused to complete or attempt activity 9 The patient did not perform the activity before the current illness or injury 88 Not attempted due to Medical conditions or safety concerns Scootin Rollin Supine to/from Sit: 6 Sit to/from Stand: 5 Weight Bearing Weight Bearing Restriction: Full Weight Bearing Location Restriction: LE Bilateral Gait Training Gait (FIM): 5 Distance (FIM): 3=150 ft Distance: 300' Gait Level of Assist: 5 Gait Persons Needed: 1 Gait Assistive Device: FWW Pt walks in hallway with slow but steady gait, no LOB. Treatments Pt transferred from supine to EOB to standing at [facility]. Pt ambulated in hallway using FWW at [facility]. Pt returns to room as Radiology arrives to take pt. Pt is left with Radiology and all needs met at end of tx. Assessment Current Status: Good Progress Pt is improving with safety and independence with both transfers and ambulation. PT Short Term Goals Short Term Goals Time Frame: Dec 12, 2016 Transfers (B,C,W/C) (FIM): 6 Gait (FIM): 6 Distance (FIM): 3=150 ft Gait Distance Comment: 500' Gait Level of Assist: 6 Gait Assistive Device: FWW PT Plan Problem List Problem List: Activity Tolerance, Functional Strength Treatment/Plan Treatment Plan: Continue Plan of Care Treatment Plan: Education, Functional Activity [place], Functional Strength, Gait , Safety, Therapeutic Exercise, Transfers Treatment Duration: Dec 12, 2016 Visits Per Week: 4 Safety Risks/Education Patient Education: Gait Training, Correct Positioning, Safety Issues Teaching Recipient: Patient Teaching Methods: Discussion Response to Teaching: Verbalize Understanding Time/GCodes Time In: 952 Time Out: 1007 Total Billed Treatment Time: 15 Total Billed Treatment visit, GT (15m) PT/OT Therapy GCodes Therapy Functional Limitation: Physical Therapy Test(s)/Tool used to determine: Level of Assistance Scale Functional Limitation-Current Charge Code: MOBCUR Modifier: CJ Functional Limitation-Goal Charge Code: MOBGOAL Modifier: MEAGAN OROZCO LACE PINNER Dec 10, 2016 14:46
[2016-12-10 16:00] VITALS: BP 123/78
--- NOTE | 2016-12-10 16:23 | Progress Note-Standard ---
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 He has not been eating or drinking and was becoming progressively weaker. He also has increasing confusion. He is on dexamethasone 4 mg every 6 hours to reduce the cerebral edema. Today he answers simple questions appropriately. He is eating and drinking better. The laceration on the forehead is healing well. He is continuing radiation therapy daily and has completed 6 out of planned 10 treatments so far. His activity level is limited but stable. He is on Clinimix with electrolytes at 125 mL per hour and I will continue this. He is unable to take care of himself at home. Family is considering moving him to an assisted care facility in [place]. tax services manager working with the patient and family regarding discharge planning. Patient qualified for swing bed status and I will make the switch tomorrow. I'll obtain a CBC and a CMP tomorrow to monitor the electrolytes, renal function, hemoglobin, WBC and platelets. Continue current management. ANDRZEJ TEE Dec 10, 2016 16:23
[2016-12-10] MEDS: ATORVASTATIN 20 MG (LIPITOR) TABLET PO SCH (20:26)
[2016-12-11 00:07] VITALS: BP 129/67
[2016-12-11] MEDS: PANTOPRAZOLE 40 MG (PROTONIX) TAB PO SCH (06:13)
[2016-12-11 06:26] LABS: BASOPHILS % (AUTO) 0 % (0-10); EOSINOPHILS % (AUTO) 0 % (0-10); LYMPHOCYTES # (AUTO) 0.2 X 10^3 (1.0-4.0); LYMPHOCYTES % (AUTO) 2 % (12-44); MEAN CORPUSCULAR HEMOGLOBIN 28 PG (25-34); MEAN CORPUSCULAR HGB CONC 33 G/DL (32-36); MEAN CORPUSCULAR VOLUME 83 FL (80-99); MONOCYTES # (AUTO) 0.7 X 10^3 (0.0-1.0); MONOCYTES % (AUTO) 7 % (0-12); NEUTROPHILS # (AUTO) 9.8 X 10^3 (1.8-7.8); NEUTROPHILS % (AUTO) 92 % (42-75); PLATELET COUNT 319 10^3/uL (130-400); RED BLOOD COUNT 4.32 10^6/uL (4.35-5.85); RED CELL DISTRIBUTION WIDTH 18.5 % (10.0-14.5); WHITE BLOOD COUNT 10.7 10^3/uL (4.3-11.0)
[2016-12-11] MEDS: AA 4.25% W/LYTES IN D5W IV SOL 1,000 ML IV SCH ×2 (06:39→13:52)
[2016-12-11 06:46] LABS: ALANINE AMINOTRANSFERASE 64 U/L (0-55); ALBUMIN 3.1 G/DL (3.2-4.5); ANION GAP 8 MMOL/L (5-14); ASPARTATE AMINO TRANSFERASE 24 U/L (5-34); BILIRUBIN,TOTAL 0.4 MG/DL (0.1-1.0); BLOOD UREA NITROGEN 51 MG/DL (7-18); BUN/CREATININE RATIO 53; CALCIUM 8.9 MG/DL (8.5-10.1); CARBON DIOXIDE 24 MMOL/L (21-32); CHLORIDE 98 MMOL/L (98-107); CREATININE SERUM 0.97 MG/DL (0.60-1.30); GFR ESTIMATED > 60; GLUCOSE 120 MG/DL (70-105); POTASSIUM 4.9 MMOL/L (3.6-5.0); SODIUM 130 MMOL/L (135-145); TOTAL PROTEIN 5.8 G/DL (6.4-8.2)
[2016-12-11 07:40] VITALS: BP 150/88
[2016-12-11] MEDS: NYSTATIN ORAL SUSP 5 ML UDC PO SCH ×2 (07:42→12:42)
[2016-12-11] MEDS: SERTRALINE 50 MG (ZOLOFT) TABLET PO SCH (07:42)
[2016-12-11] MEDS: DEXAMETHASONE 4 MG TAB (DECADRON) PO SCH ×2 (07:42→12:42)
[2016-12-11] MEDS: FLUCONAZOLE 100 MG/50 ML 50 ML IV SCH (07:43)
[2016-12-11] MEDS: APIXABAN 5 MG (ELIQUIS) TABLET PO SCH (07:43)
--- NOTE | 2016-12-11 15:03 | Physical Therapy Daily Note ---
PT Daily Note-Current Subjective Patient states, "I'm not feeling it today, but I will go." Pain Numeric Pain Scale: 0-No Pain Location: No Pain Reported Mental Status Patient Orientation: Person, Time, Situation Attachments: IV Transfers Functional [place] Measure 0=Not Assessed/NA 4=Minimal Assistance 1=Total Assistance 5=Supervision or Setup 2=Maximal Assistance 6=Modified [place] 3=Moderate Assistance 7=Complete IndependenceIRFPAI Quality Coding Scale 6 Independent with activity with or without an assistive device 5 Patient requires set up or clean up by helper. Patient completes activity by themselves 4 Supervision or touching assist (CGA). [place] provide cues , steadying assist 3 The helper provides less than half the effort to complete the activity 2 The helper provides more than half the effort to complete the activity 1 Dependent. The helper does all the effort to complete an activity 7 Patient refused to complete or attempt activity 9 The patient did not perform the activity before the current illness or injury 88 Not attempted due to Medical conditions or safety concerns Transfers (B, C, W/C) (FIM): 5 Scootin Rollin Supine to/from Sit: 6 Sit to/from Stand: 5 Gait Training Gait (FIM): 5 Distance (FIM): 3=150 ft Distance: 550' Gait Level of Assist: 5 Gait Persons Needed: 1 Gait Assistive Device: FWW steady, functional with FWW Assessment Patient returned to bed with needs met. Patient continues to feel fatigued. PT Short Term Goals Short Term Goals Time Frame: Dec 12, 2016 Transfers (B,C,W/C) (FIM): 6 Gait (FIM): 6 Distance (FIM): 3=150 ft Gait Distance Comment: 500' Gait Level of Assist: 6 Gait Assistive Device: FWW PT Plan Treatment/Plan Treatment Plan: Continue Plan of Care Treatment Plan: Education, Functional Activity [place], Functional Strength, Gait , Safety, Therapeutic Exercise, Transfers Treatment Duration: Dec 12, 2016 Visits Per Week: 4 Time/GCodes Time In: 1125 Time Out: 1135 Total Billed Treatment Time: 10 Total Billed Treatment 1 visit FA 10 min PT/OT Therapy GCodes Therapy Functional Limitation: Physical Therapy Test(s)/Tool used to determine: Level of Assistance Scale Functional Limitation-Current Charge Code: MOBCUR Modifier: CJ Functional Limitation-Goal Charge Code: MOBGOAL Modifier: BK PAYTON PT Dec 11, 2016 15:02
--- NOTE | 2016-12-12 10:36 | DISCHARGE SUMMARY ---
DATE OF ADMISSION: 12/07/2016 DATE OF DISCHARGE TO SWING BED STATUS: 12/11/2016 The patient is admitted to Room 416. FINAL DIAGNOSES: 1. History of fall. 2. Metastatic cancer to the brain with cerebral edema. 3. Metastatic non-small cell lung cancer. 4. Deconditioning. Mr. Malone is an 86-year-old male with a history of metastatic non-small cell lung cancer who was on palliative outpatient chemotherapy. Recently he was diagnosed with brain metastasis and had evidence of cerebral edema. He was started on dexamethasone to reduce the cerebral edema and initiated whole brain radiation therapy palliatively. The patient was living at home with his who is disabled and he was the primary caregiver. Because of his brain metastasis he was not ambulating well and had a fall at home. He also had memory problems and was unable to take care of himself or his . Family brought him to the emergency room and he had a repeat CT scan of the head done that showed persistent edema of the brain and significant deconditioning. The family had mentioned that he was not eating or drinking at all and he was clinically dehydrated and extremely weak because of these reasons he was admitted to the hospital and started on Clinimix with lytes at 125 mL per hour. He was noted to have oral candidiasis and started on IV Diflucan and oral Nystatin solution. He continued on dexamethasone 4 mg every 6 hours and the radiation therapy daily. Because of his deconditioning, PT consultation was obtained for strengthening and ambulation. Condition improved slightly, but he was still somewhat confused and not eating very well. He had a few more treatments of radiation therapy left and it was decided to place him on swing bed status for completion of radiation therapy and continued physical therapy. The patient and his family is discussing about stopping all the treatments after the radiation therapy is completed and moving to assisted care facility in [place]. They have not decided whether to sign up with hospice or not. They would make a decision prior to discharge. On 12/11/2016 he was felt stable enough to be discharged to swing bed status and all his medications were continued. He will continue radiation therapy daily until palliative course is complete. Job ID: [id number] Dictated Date: 12/11/2016 16:10:04 [employer] Date: 12/12/2016 10:30:09/chuck MARTINEZ
[2016-12-16] MEDS ORDERED: DEXA4TAB PO (11:03)
--- OUTSIDE RECORDS SUMMARY | 2016-12-30 12:16 | XMS REPORT | Continuity of Care Document ---
Author Author [facility] Organization [facility] Address Unknown Phone Unavailable Allergies Active Description Code Type Severity Reaction Onset Reported/Identified Relationship to Patient Clinical Status Yes Iodine and Iodide Containing Produc [id number] Drug Allergy Unknown RASH 03/31/2016 Yes Penicillins [id number] Drug Allergy Unknown HIVES 03/31/2016 Medications Problems Date Dx Coded Attending Type Code Diagnosis Diagnosed By 12/26/2015 PETER NIELSON DO Ot G47.33 OBSTRUCTIVE SLEEP APNEA (ADULT) (PEDIATR 01/09/2016 PETER NIELSON DO Ot I25.10 ATHSCL HEART DISEASE OF [place] CORONARY 01/09/2016 PETER NIELSON DO Ot J44.9 CHRONIC OBSTRUCTIVE PULMONARY DISEASE, U 01/09/2016 PETER NIELSON DO Ot Z72.0 TOBACCO USE 01/09/2016 PETER NIELSON DO Ot I25.10 ATHSCL HEART DISEASE OF [place] CORONARY 01/09/2016 PETER NIELSON DO Ot J44.9 CHRONIC OBSTRUCTIVE PULMONARY DISEASE, U 01/09/2016 PETER NIELSON DO Ot Z72.0 TOBACCO USE 01/10/2016 PETER NIELSON DO Ot G47.33 OBSTRUCTIVE SLEEP APNEA (ADULT) (PEDIATR 01/24/2016 PETER NIELSON DO Ot J44.9 CHRONIC OBSTRUCTIVE PULMONARY DISEASE, U 01/25/2016 PETER NIELSON DO Ot J44.9 CHRONIC OBSTRUCTIVE PULMONARY DISEASE, U 01/25/2016 PETER NIELSON DO Ot J44.9 CHRONIC OBSTRUCTIVE PULMONARY DISEASE, U 01/25/2016 PETER NIELSON DO Ot Z72.0 TOBACCO USE 01/29/2016 PETER NIELSON DO Ot I25.10 ATHSCL HEART DISEASE OF [place] CORONARY 01/29/2016 PETER NIELSON DO Ot J44.9 CHRONIC OBSTRUCTIVE PULMONARY DISEASE, U 01/29/2016 PETER NIELSON DO Ot Z72.0 TOBACCO USE 02/06/2016 PETER NIELSON DO Ot I25.10 ATHSCL HEART DISEASE OF [place] CORONARY 02/06/2016 PETER NIELSON DO Ot J44.9 CHRONIC OBSTRUCTIVE PULMONARY DISEASE, U 02/06/2016 PETER NEILSON DO Ot Z72.0 TOBACCO USE 02/15/2016 PETER NIELSON DO Ot J44.9 CHRONIC OBSTRUCTIVE PULMONARY DISEASE, U 02/15/2016 PETER NIELSON DO Ot Z72.0 TOBACCO USE 02/27/2016 PETER NIELSON DO Ot J44.9 CHRONIC OBSTRUCTIVE PULMONARY DISEASE, U 02/27/2016 PETER NIELSON DO Ot Z72.0 TOBACCO USE 03/18/2016 SILVINO KUMARI, FRANTZ Bird Ot I48.0 PAROXYSMAL ATRIAL FIBRILLATION 03/18/2016 FRANTZ DUBOIS MD Ot I48.0 PAROXYSMAL ATRIAL FIBRILLATION 03/18/2016 FRANTZ DUBOIS MD Ot I48.0 PAROXYSMAL ATRIAL FIBRILLATION 03/18/2016 FRANTZ DUBOIS MD Ot I48.0 PAROXYSMAL ATRIAL FIBRILLATION 03/18/2016 FRANTZ DUBOSI MD J Ot I48.0 PAROXYSMAL ATRIAL FIBRILLATION 03/19/2016 FRANTZ DUBOIS MD Ot I48.0 PAROXYSMAL ATRIAL FIBRILLATION 03/19/2016 FRANTZ DUBOIS MD Ot E78.2 MIXED HYPERLIPIDEMIA 03/19/2016 FRANTZ DUBOIS MD Ot I10 ESSENTIAL (PRIMARY) HYPERTENSION 03/19/2016 FRANTZ DUBOIS MD Ot I25.10 ATHSCL HEART DISEASE OF [place] CORONARY 03/19/2016 FRANTZ DUBOIS MD Ot I48.0 PAROXYSMAL ATRIAL FIBRILLATION 03/20/2016 FRANTZ DUBOIS MD Ot I48.0 PAROXYSMAL ATRIAL FIBRILLATION 03/28/2016 PETER NIELSON DO Ot F17.201 NICOTINE DEPENDENCE, UNSPECIFIED, IN REM 03/28/2016 PETER NIELSON DO Ot J44.9 CHRONIC OBSTRUCTIVE PULMONARY DISEASE, U 03/28/2016 PETER NIELSON DO Ot R91.8 OTHER NONSPECIFIC ABNORMAL FINDING OF [place] 03/28/2016 PETER NIELSON DO Ot F17.201 NICOTINE DEPENDENCE, UNSPECIFIED, IN REM 03/28/2016 PETER NIELSON DO Ot J44.9 CHRONIC OBSTRUCTIVE PULMONARY DISEASE, U 03/28/2016 PETER NIELSON DO Ot R91.8 OTHER NONSPECIFIC ABNORMAL FINDING OF [place] 03/28/2016 PETER NIELSON DO Ot F17.201 NICOTINE DEPENDENCE, UNSPECIFIED, IN REM 03/28/2016 PETER NIELSON DO Ot J44.9 CHRONIC OBSTRUCTIVE PULMONARY DISEASE, U 03/28/2016 PETER NIELSON DO M Ot R91.8 OTHER NONSPECIFIC ABNORMAL FINDING OF [place] 03/31/2016 PETER NIELSON DO Ot E78.2 MIXED HYPERLIPIDEMIA 03/31/2016 PETER NIELSON DO M Ot F17.200 NICOTINE DEPENDENCE, UNSPECIFIED, UNCOMP 03/31/2016 FRANK NIELSON DOSON M Ot I10 ESSENTIAL (PRIMARY) HYPERTENSION 03/31/2016 PETER NIELSON DO M Ot I25.10 ATHSCL HEART DISEASE OF [place] CORONARY 03/31/2016 PETER NIELSON DO M Ot I48.0 PAROXYSMAL ATRIAL FIBRILLATION 03/31/2016 PETER NIELSON DO Ot J44.9 CHRONIC OBSTRUCTIVE PULMONARY DISEASE, U 03/31/2016 PETER NIELSON DO M Ot R91.8 OTHER NONSPECIFIC ABNORMAL FINDING OF [place] 04/03/2016 PETER NIELSON DO M Ot E78.2 MIXED HYPERLIPIDEMIA 04/03/2016 PETER NIELSON DO M Ot F17.200 NICOTINE DEPENDENCE, UNSPECIFIED, UNCOMP 04/03/2016 PETER NIELSON DO M Ot I10 ESSENTIAL (PRIMARY) HYPERTENSION 04/03/2016 PETER NIELSON DO M Ot I25.10 ATHSCL HEART DISEASE OF [place] CORONARY 04/03/2016 PETER NIELSON DO M Ot I48.0 PAROXYSMAL ATRIAL FIBRILLATION 04/03/2016 PETER NIELSON DO Ot J44.9 CHRONIC OBSTRUCTIVE PULMONARY DISEASE, U 04/03/2016 PETER NIELSON DO M Ot R91.8 OTHER NONSPECIFIC ABNORMAL FINDING OF [place] 04/07/2016 PETER NIELSON DO M Ot E78.2 MIXED HYPERLIPIDEMIA 04/07/2016 PETER NIELSON DO M Ot F17.200 NICOTINE DEPENDENCE, UNSPECIFIED, UNCOMP 04/07/2016 FRANK NIELSON DOSON M Ot I10 ESSENTIAL (PRIMARY) HYPERTENSION 04/07/2016 PETER INELSON DO M Ot I25.10 ATHSCL HEART DISEASE OF [place] CORONARY 04/07/2016 PETER NIELSON DO M Ot I48.0 PAROXYSMAL ATRIAL FIBRILLATION 04/07/2016 NAGA TORRES PETER Mcwilliams Ot J44.9 CHRONIC OBSTRUCTIVE PULMONARY DISEASE, U 04/07/2016 PETER NIELSON DO M Ot R91.8 OTHER NONSPECIFIC ABNORMAL FINDING OF [place] 04/08/2016 PETER NIELSON DO M Ot R91.8 OTHER NONSPECIFIC ABNORMAL FINDING OF [place] 04/09/2016 PETER NIELSON DO M Ot R91.8 OTHER NONSPECIFIC ABNORMAL FINDING OF [place] 04/09/2016 FRANK NIELSON DOBROOKLYN Mcwilliams Ot J44.9 CHRONIC OBSTRUCTIVE PULMONARY DISEASE, U 04/09/2016 PETER NIELSON DO M Ot R91.8 OTHER NONSPECIFIC ABNORMAL FINDING OF [place] 04/11/2016 BRITTNEY STUART DO Ot C34.90 MALIGNANT NEOPLASM OF UNSP PART OF UNSP 04/11/2016 BRITTNEY STUART DO Ot Z01.818 ENCOUNTER FOR OTHER PREPROCEDURAL EXAMIN 04/14/2016 BRITTNEY STUART DO Ot 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 04/14/2016 BRITTNEY STUART DO Ot I10 ESSENTIAL (PRIMARY) HYPERTENSION 04/14/2016 BRITTNEY STUART DO Ot Z11.2 ENCOUNTER FOR SCREENING FOR OTHER BACTER 04/14/2016 BRITTNEY STUART DO Ot C34.90 MALIGNANT NEOPLASM OF UNSP PART OF UNSP 04/14/2016 BRITTNEY STUART DO Ot Z01.818 ENCOUNTER FOR OTHER PREPROCEDURAL EXAMIN 04/15/2016 BRITTNEY STUART DO Ot 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 04/15/2016 BRITTNEY STUART DO Ot I10 ESSENTIAL (PRIMARY) HYPERTENSION 04/15/2016 BRITTNEY STUART DO Ot Z11.2 ENCOUNTER FOR SCREENING FOR OTHER BACTER 04/15/2016 BRITTNEY STUART DO Ot 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 04/15/2016 BRITTNEY STUART DO Ot I10 ESSENTIAL (PRIMARY) HYPERTENSION 04/15/2016 BRITTNEY STUART DO Ot Z11.2 ENCOUNTER FOR SCREENING FOR OTHER BACTER 04/17/2016 SILVINO KUMARI, FRANTZ Bird Ot E78.2 MIXED HYPERLIPIDEMIA 04/17/2016 FRANTZ DUBOIS MD Ot I10 ESSENTIAL (PRIMARY) HYPERTENSION 04/17/2016 FRANTZ DUBOIS MD Ot I25.10 ATHSCL HEART DISEASE OF [place] CORONARY 04/17/2016 FRANTZ DUBOIS MD Ot I48.0 PAROXYSMAL ATRIAL FIBRILLATION 04/20/2016 BRITTNEY STUART DO Ot 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 04/20/2016 BRITTNEY STUART DO Ot I10 ESSENTIAL (PRIMARY) HYPERTENSION 04/20/2016 BRITTNEY STUART DO Ot Z11.2 ENCOUNTER FOR SCREENING FOR OTHER BACTER 04/25/2016 FRANTZ DUBOIS MD Ot E78.2 MIXED HYPERLIPIDEMIA 04/25/2016 FRANTZ DUBOIS MD Ot I10 ESSENTIAL (PRIMARY) HYPERTENSION 04/25/2016 FRANTZ DUBOIS MD Ot I25.10 ATHSCL HEART DISEASE OF [place] CORONARY 04/25/2016 FRANTZ DUBOIS MD Ot I48.0 PAROXYSMAL ATRIAL FIBRILLATION 04/28/2016 FRANTZ DUBOIS MD Ot E78.2 MIXED HYPERLIPIDEMIA 04/28/2016 FRANTZ DUBOIS MD Ot I10 ESSENTIAL (PRIMARY) HYPERTENSION 04/28/2016 FRANTZ DUBOIS MD Ot I25.10 ATHSCL HEART DISEASE OF [place] CORONARY 04/28/2016 FRANTZ DUBOIS MD Ot I48.0 PAROXYSMAL ATRIAL FIBRILLATION 05/01/2016 SAMMY RICHARDS Ot 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 05/01/2016 SAMMY RICHARDS ANESTHESIOLOGIST AND CRITICAL CARE Ot I10 ESSENTIAL (PRIMARY) HYPERTENSION 05/01/2016 SAMMY RICHARDS ANESTHESIOLOGIST AND CRITICAL CARE Ot I25.10 ATHSCL HEART DISEASE OF [place] CORONARY 05/01/2016 SAMMY RICHARDS ANESTHESIOLOGIST AND CRITICAL CARE Ot J44.9 CHRONIC OBSTRUCTIVE PULMONARY DISEASE, U 05/01/2016 SAMMY RICHARDS ANESTHESIOLOGIST AND CRITICAL CARE Ot Z79.899 OTHER NAILHEAD SETTER (CURRENT) DRUG THERAPY 05/02/2016 ANDRZEJ TEE Ot 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 05/02/2016 ANDRZEJ TEE Ot I10 ESSENTIAL (PRIMARY) HYPERTENSION 05/02/2016 ANDRZEJ TEE Ot I25.10 ATHSCL HEART DISEASE OF [place] CORONARY 05/02/2016 ANDRZEJ TEE Ot J44.9 CHRONIC OBSTRUCTIVE PULMONARY DISEASE, U 05/02/2016 ANDRZEJ TEE Ot Z79.899 OTHER SENIOR LIVING (CURRENT) DRUG THERAPY 05/16/2016 PETER NIELSON DO Ot J44.9 CHRONIC OBSTRUCTIVE PULMONARY DISEASE, U 05/16/2016 PETER NIELSON DO Ot R91.8 OTHER NONSPECIFIC ABNORMAL FINDING OF [place] 05/19/2016 FRANTZ DUBOIS MD Ot E78.2 MIXED HYPERLIPIDEMIA 05/19/2016 FRANTZ DUBOIS MD Ot I10 ESSENTIAL (PRIMARY) HYPERTENSION 05/19/2016 FRANTZ DUBOIS MD Ot I25.10 ATHSCL HEART DISEASE OF [place] CORONARY 05/19/2016 FRANTZ DUBOIS MD Ot I48.0 PAROXYSMAL ATRIAL FIBRILLATION 05/21/2016 SAMMY RICHARDS S ANESTHESIOLOGIST AND CRITICAL CARE Ot 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 05/21/2016 SAMMY RICHARDS ANESTHESIOLOGIST AND CRITICAL CARE Ot I10 ESSENTIAL (PRIMARY) HYPERTENSION 05/21/2016 SAMMY RICHARDS ANESTHESIOLOGIST AND CRITICAL CARE Ot I25.10 ATHSCL HEART DISEASE OF [place] CORONARY 05/21/2016 SAMMY RICHARDSP Ot J44.9 CHRONIC OBSTRUCTIVE PULMONARY DISEASE, U 05/21/2016 SAMMY RICHARDS S ANESTHESIOLOGIST AND CRITICAL CARE Ot Z79.899 OTHER SENIOR LIVING (CURRENT) DRUG THERAPY 05/23/2016 FRANTZ DUBOIS MD Ot E78.2 MIXED HYPERLIPIDEMIA 05/23/2016 FRANTZ DUBOIS MD Ot I10 ESSENTIAL (PRIMARY) HYPERTENSION 05/23/2016 FRANTZ DUBOIS MD Ot I25.10 ATHSCL HEART DISEASE OF [place] CORONARY 05/23/2016 FRANTZ DUOBIS MD Ot I48.0 PAROXYSMAL ATRIAL FIBRILLATION 05/23/2016 PETER NIELSON DO Ot J44.9 CHRONIC OBSTRUCTIVE PULMONARY DISEASE, U 05/23/2016 PETER NIELSON DO Ot R91.8 OTHER NONSPECIFIC ABNORMAL FINDING OF [place] 05/28/2016 SAMMY RICHARDS S ANESTHESIOLOGIST AND CRITICAL CARE Ot 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 05/28/2016 SAMMY RICHARDS S ANESTHESIOLOGIST AND CRITICAL CARE Ot I10 ESSENTIAL (PRIMARY) HYPERTENSION 05/28/2016 SAMMY RICHARDS S ANESTHESIOLOGIST AND CRITICAL CARE Ot I25.10 ATHSCL HEART DISEASE OF [place] CORONARY 05/28/2016 SAMMY RICHARDS S ANESTHESIOLOGIST AND CRITICAL CARE Ot J44.9 CHRONIC OBSTRUCTIVE PULMONARY DISEASE, U 05/28/2016 SAMMY RICHARDS ANESTHESIOLOGIST AND CRITICAL CARE Ot Z79.899 OTHER NAILHEAD SETTER (CURRENT) DRUG THERAPY 06/02/2016 ANYANDRZEJ VALLEJO N Ot 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 06/02/2016 ANDRZEJ TEE N Ot I10 ESSENTIAL (PRIMARY) HYPERTENSION 06/02/2016 ANDRZEJ TEE N Ot I25.10 ATHSCL HEART DISEASE OF [place] CORONARY 06/02/2016 ANDRZEJ TEE N Ot J44.9 CHRONIC OBSTRUCTIVE PULMONARY DISEASE, U 06/02/2016 ANDRZEJ TEE N Ot Z79.899 OTHER NAILHEAD SETTER (CURRENT) DRUG THERAPY 06/09/2016 ANDRZEJ TEE N Ot 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 06/09/2016 ANDRZEJ TEE N Ot I10 ESSENTIAL (PRIMARY) HYPERTENSION 06/09/2016 ANDRZEJ TEE N Ot I25.10 ATHSCL HEART DISEASE OF [place] CORONARY 06/09/2016 ANDRZEJ TEE N Ot J44.9 CHRONIC OBSTRUCTIVE PULMONARY DISEASE, U 06/09/2016 ANDRZEJ TEE N Ot Z51.0 ENCOUNTER FOR ANTINEOPLASTIC RADIATION T 06/09/2016 ANDRZEJ TEE N Ot Z51.11 ENCOUNTER FOR ANTINEOPLASTIC CHEMOTHERAP 06/09/2016 ANDRZEJ TEE N Ot Z79.899 OTHER NAILHEAD SETTER (CURRENT) DRUG THERAPY 06/10/2016 ANDRZEJ TEE N Ot 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 06/10/2016 ANDRZEJ TEE N Ot I10 ESSENTIAL (PRIMARY) HYPERTENSION 06/10/2016 ANDRZEJ TEE N Ot I25.10 ATHSCL HEART DISEASE OF [place] CORONARY 06/10/2016 ANDRZEJ TEE N Ot J44.9 CHRONIC OBSTRUCTIVE PULMONARY DISEASE, U 06/10/2016 ANDRZEJ TEE N Ot Z51.11 ENCOUNTER FOR ANTINEOPLASTIC CHEMOTHERAP 06/10/2016 ANDRZEJ TEE N Ot Z79.899 OTHER NAILHEAD SETTER (CURRENT) DRUG THERAPY 06/11/2016 SAMMY RICHARDS ANESTHESIOLOGIST AND CRITICAL CARE Ot R42 DIZZINESS AND GIDDINESS 06/19/2016 SAMMY RICHARDS ANESTHESIOLOGIST AND CRITICAL CARE Ot R42 DIZZINESS AND GIDDINESS 06/19/2016 SAMMY RICHARDS ANESTHESIOLOGIST AND CRITICAL CARE Ot R42 DIZZINESS AND GIDDINESS 06/20/2016 SAMMY RICHARDS ANESTHESIOLOGIST AND CRITICAL CARE Ot R42 DIZZINESS AND GIDDINESS 07/02/2016 RICHARDSSAMMY Drake ANESTHESIOLOGIST AND CRITICAL CARE Ot R42 DIZZINESS AND GIDDINESS 07/03/2016 RICHARDSSAMMY Drake ANESTHESIOLOGIST AND CRITICAL CARE Ot R42 DIZZINESS AND GIDDINESS 07/03/2016 SAMMY RICHARDS ANESTHESIOLOGIST AND CRITICAL CARE Ot R42 DIZZINESS AND GIDDINESS 07/03/2016 RICHARDSSAMMY Drake ANESTHESIOLOGIST AND CRITICAL CARE Ot R42 DIZZINESS AND GIDDINESS 07/09/2016 RICHARDSSAMMY Drake ANESTHESIOLOGIST AND CRITICAL CARE Ot R42 DIZZINESS AND GIDDINESS 08/04/2016 ANDRZEJ TEE N Ot 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 08/04/2016 NAYANDRZEJ VALLEJO N Ot I10 ESSENTIAL (PRIMARY) HYPERTENSION 08/04/2016 NAY ANDRZEJ N Ot I25.10 ATHSCL HEART DISEASE OF [place] CORONARY 08/04/2016 NAY, ANDRZEJ N Ot J44.9 CHRONIC OBSTRUCTIVE PULMONARY DISEASE, U 08/04/2016 NAY, ANDRZEJ N Ot Z51.11 ENCOUNTER FOR ANTINEOPLASTIC CHEMOTHERAP 08/04/2016 NAYJULES VALLEJOEDDIE N Ot Z79.899 OTHER SENIOR LIVING (CURRENT) DRUG THERAPY 08/05/2016 ANDRZEJ TEE N Ot 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 08/05/2016 ANDRZEJ TEE N Ot I10 ESSENTIAL (PRIMARY) HYPERTENSION 08/05/2016 JULES TEEEDDIE N Ot I25.10 ATHSCL HEART DISEASE OF [place] CORONARY 08/05/2016 NAY ANDRZEJ N Ot J44.9 CHRONIC OBSTRUCTIVE PULMONARY DISEASE, U 08/05/2016 NAY ANDRZEJ N Ot Z51.11 ENCOUNTER FOR ANTINEOPLASTIC CHEMOTHERAP 08/05/2016 JULES TEEEDDIE N Ot Z79.899 OTHER SENIOR LIVING (CURRENT) DRUG THERAPY 08/06/2016 ANDRZEJ TEE N Ot 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 08/06/2016 NAY ANDRZEJ N Ot I10 ESSENTIAL (PRIMARY) HYPERTENSION 08/06/2016 NAY, ANDRZEJ N Ot I25.10 ATHSCL HEART DISEASE OF [place] CORONARY 08/06/2016 NAY, ANDRZEJ N Ot J44.9 CHRONIC OBSTRUCTIVE PULMONARY DISEASE, U 08/06/2016 NAY, ANDRZEJ N Ot Z51.11 ENCOUNTER FOR ANTINEOPLASTIC CHEMOTHERAP 08/06/2016 NAY JULESAN N Ot Z79.899 OTHER SENIOR LIVING (CURRENT) DRUG THERAPY 09/04/2016 SAMMY RICHARDS ANESTHESIOLOGIST AND CRITICAL CARE Ot C34.11 MALIGNANT NEOPLASM OF UPPER LOBE, RIGHT 09/04/2016 SAMMY RICHARDS ANESTHESIOLOGIST AND CRITICAL CARE Ot R06.00 DYSPNEA, UNSPECIFIED 09/07/2016 NAY, ANDRZEJ N Ot C34.11 MALIGNANT NEOPLASM OF UPPER LOBE, RIGHT 09/07/2016 NAY, ANDRZEJ N Ot 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 09/07/2016 NAY, ANDRZEJ N Ot I10 ESSENTIAL (PRIMARY) HYPERTENSION 09/07/2016 NAY BOBAN N Ot I25.10 ATHSCL HEART DISEASE OF [place] CORONARY 09/07/2016 NAYANDRZEJ N Ot J44.9 CHRONIC OBSTRUCTIVE PULMONARY DISEASE, U 09/07/2016 NAY ANDRZEJ N Ot Z23 ENCOUNTER FOR IMMUNIZATION 09/07/2016 NAYANDRZEJ N Ot Z51.0 ENCOUNTER FOR ANTINEOPLASTIC RADIATION T 09/07/2016 NAYANDRZEJ N Ot Z51.11 ENCOUNTER FOR ANTINEOPLASTIC CHEMOTHERAP 09/07/2016 NAY JULESAN N Ot Z79.899 OTHER NAILHEAD SETTER (CURRENT) DRUG THERAPY 09/08/2016 NAY ANDRZEJ N Ot C34.11 MALIGNANT NEOPLASM OF UPPER LOBE, RIGHT 09/08/2016 NAY BOBEDDIE N Ot I10 ESSENTIAL (PRIMARY) HYPERTENSION 09/08/2016 NAYANDRZEJ N Ot I25.10 ATHSCL HEART DISEASE OF [place] CORONARY 09/08/2016 NAYANDRZEJ N Ot J44.9 CHRONIC OBSTRUCTIVE PULMONARY DISEASE, U 09/08/2016 NAY BOBAN N Ot Z23 ENCOUNTER FOR IMMUNIZATION 09/08/2016 NAY BOBAN N Ot Z51.0 ENCOUNTER FOR ANTINEOPLASTIC RADIATION T 09/08/2016 NAYJULESAN N Ot Z51.11 ENCOUNTER FOR ANTINEOPLASTIC CHEMOTHERAP 09/08/2016 NAY BOBAN N Ot Z79.899 OTHER SENIOR LIVING (CURRENT) DRUG THERAPY 09/09/2016 SAMMY RICHARDS ANESTHESIOLOGIST AND CRITICAL CARE Ot C34.11 MALIGNANT NEOPLASM OF UPPER LOBE, RIGHT 09/09/2016 SAMMY RICHARDS ANESTHESIOLOGIST AND CRITICAL CARE Ot R06.00 DYSPNEA, UNSPECIFIED 09/09/2016 SAMMY RICHARDS ANESTHESIOLOGIST AND CRITICAL CARE Ot C34.11 MALIGNANT NEOPLASM OF UPPER LOBE, RIGHT 09/09/2016 SAMMY RICHARDSP Ot R06.00 DYSPNEA, UNSPECIFIED 09/10/2016 SAMMY RICHARDS ANESTHESIOLOGIST AND CRITICAL CARE Ot C34.11 MALIGNANT NEOPLASM OF UPPER LOBE, RIGHT 09/10/2016 SAMMY RICHARDSP Ot R06.00 DYSPNEA, UNSPECIFIED 09/10/2016 NAY, ANDRZEJ Gilman Ot 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 09/10/2016 ANDRZEJ TEE Ot I10 ESSENTIAL (PRIMARY) HYPERTENSION 09/10/2016 ANDRZEJ TEE Ot I25.10 ATHSCL HEART DISEASE OF [place] CORONARY 09/10/2016 ANDRZEJ TEE Ot J44.9 CHRONIC OBSTRUCTIVE PULMONARY DISEASE, U 09/10/2016 ANDRZEJ TEE Ot Z23 ENCOUNTER FOR IMMUNIZATION 09/10/2016 ANDRZEJ TEE Ot Z51.11 ENCOUNTER FOR ANTINEOPLASTIC CHEMOTHERAP 09/10/2016 ANDRZEJ TEE Ot Z79.899 OTHER SENIOR LIVING (CURRENT) DRUG THERAPY 09/11/2016 SAMMY RICHARDSP Ot C34.11 MALIGNANT NEOPLASM OF UPPER LOBE, RIGHT 09/11/2016 SAMMY RICHARDSP Ot R06.00 DYSPNEA, UNSPECIFIED 09/26/2016 SAMMY RICHARDS ANESTHESIOLOGIST AND CRITICAL CARE Ot C34.11 MALIGNANT NEOPLASM OF UPPER LOBE, RIGHT 09/26/2016 SAMMY RICHARDS ANESTHESIOLOGIST AND CRITICAL CARE Ot R06.00 DYSPNEA, UNSPECIFIED 09/30/2016 PETER NIELSON DO Ot I25.10 ATHSCL HEART DISEASE OF [place] CORONARY 09/30/2016 PETER NIELSON DO Ot J44.9 CHRONIC OBSTRUCTIVE PULMONARY DISEASE, U 09/30/2016 PETER NIELSON DO Ot Z72.0 TOBACCO USE 09/30/2016 PETER NIELSON DO, Ot J44.9 CHRONIC OBSTRUCTIVE PULMONARY DISEASE, U 09/30/2016 PETER NIELSON DO Ot Z72.0 TOBACCO USE 09/30/2016 SILVINO KUMARI, FRANTZ Bird Ot E78.2 MIXED HYPERLIPIDEMIA 09/30/2016 SILVINO KUMARI, FRANTZ Bird Ot I10 ESSENTIAL (PRIMARY) HYPERTENSION 09/30/2016 FRANTZ DUBOIS MD Ot I25.10 ATHSCL HEART DISEASE OF [place] CORONARY 09/30/2016 SILVINO KUMARI, FRANTZ Bird Ot I48.0 PAROXYSMAL ATRIAL FIBRILLATION 09/30/2016 SILVINO KUMARI, FRANTZ Bird Ot E78.2 MIXED HYPERLIPIDEMIA 09/30/2016 SILVINO KUMARI, FRANTZ Bird Ot I10 ESSENTIAL (PRIMARY) HYPERTENSION 09/30/2016 SILVINO KUMARI, FRANTZ Bird Ot I25.10 ATHSCL HEART DISEASE OF [place] CORONARY 09/30/2016 SILVINO KUMARI, FRANTZ Bird Ot I48.0 PAROXYSMAL ATRIAL FIBRILLATION 09/30/2016 PETER NIELSON DO Ot J44.9 CHRONIC OBSTRUCTIVE PULMONARY DISEASE, U 09/30/2016 PETER NIELSON DO Ot R91.8 OTHER NONSPECIFIC ABNORMAL FINDING OF [place]RIST[place] 09/30/2016 SAMMY RICHARDS ANESTHESIOLOGIST AND CRITICAL CARE Ot 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 09/30/2016 SAMMY RICHARDS Ot I10 ESSENTIAL (PRIMARY) HYPERTENSION 09/30/2016 SAMMY RICHARDS Ot I25.10 ATHSCL HEART DISEASE OF [place] CORONARY 09/30/2016 SAMMY RICHARDS ANESTHESIOLOGIST AND CRITICAL CARE Ot J44.9 CHRONIC OBSTRUCTIVE PULMONARY DISEASE, U 09/30/2016 SAMMY RICHARDSP Ot Z79.899 OTHER NAILHEAD SETTER (CURRENT) DRUG THERAPY 09/30/2016 SAMMY RICHARDSP Ot R42 DIZZINESS AND GIDDINESS 09/30/2016 SAMMY RICHARDS ANESTHESIOLOGIST AND CRITICAL CARE Ot C34.11 MALIGNANT NEOPLASM OF UPPER LOBE, RIGHT 09/30/2016 SAMMY RICHARDS Ot R06.00 DYSPNEA, UNSPECIFIED 09/30/2016 ANDRZEJ TEE Ot 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 09/30/2016 ANDRZEJ TEE Ot I10 ESSENTIAL (PRIMARY) HYPERTENSION 09/30/2016 ANDRZEJ TEE Ot I25.10 ATHSCL HEART DISEASE OF [place] CORONARY 09/30/2016 ANDRZEJ TEE Ot J44.9 CHRONIC OBSTRUCTIVE PULMONARY DISEASE, U 09/30/2016 ANDRZEJ TEE Ot Z23 ENCOUNTER FOR IMMUNIZATION 09/30/2016 ANDRZEJ TEE Ot Z51.11 ENCOUNTER FOR ANTINEOPLASTIC CHEMOTHERAP 09/30/2016 ANDRZEJ TEE Ot Z79.899 OTHER SENIOR LIVING (CURRENT) DRUG THERAPY 09/30/2016 PETER NIELSON DO Ot I25.10 ATHSCL HEART DISEASE OF [place] CORONARY 09/30/2016 PETER NIELSON DO Ot J44.9 CHRONIC OBSTRUCTIVE PULMONARY DISEASE, U 09/30/2016 PETER NIELSON DO Ot Z72.0 TOBACCO USE 09/30/2016 PETER NIELSON DO Ot J44.9 CHRONIC OBSTRUCTIVE PULMONARY DISEASE, U 09/30/2016 PETER NIELSON DO Ot Z72.0 TOBACCO USE 09/30/2016 FRANTZ DUBOIS MD J Ot E78.2 MIXED HYPERLIPIDEMIA 09/30/2016 FRANTZ DUBOIS MD J Ot I10 ESSENTIAL (PRIMARY) HYPERTENSION 09/30/2016 FRANTZ DUBOIS MD Ot I25.10 ATHSCL HEART DISEASE OF [place] CORONARY 09/30/2016 FRANTZ DUBOIS MD J Ot I48.0 PAROXYSMAL ATRIAL FIBRILLATION 09/30/2016 FRANTZ DUBOIS MD J Ot E78.2 MIXED HYPERLIPIDEMIA 09/30/2016 FRANTZ DUBOIS MD J Ot I10 ESSENTIAL (PRIMARY) HYPERTENSION 09/30/2016 FRANTZ DUBOIS MD J Ot I25.10 ATHSCL HEART DISEASE OF [place] CORONARY 09/30/2016 FRANTZ DUBOIS MD J Ot I48.0 PAROXYSMAL ATRIAL FIBRILLATION 09/30/2016 PETER NIELSON DO Ot J44.9 CHRONIC OBSTRUCTIVE PULMONARY DISEASE, U 09/30/2016 PETER NIELSON DO Ot R91.8 OTHER NONSPECIFIC ABNORMAL FINDING OF [place] 09/30/2016 SAMMY RICHARDSP Ot 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 09/30/2016 SAMMY RICHARDSP Ot I10 ESSENTIAL (PRIMARY) HYPERTENSION 09/30/2016 SAMMY RICHARDSP Ot I25.10 ATHSCL HEART DISEASE OF [place] CORONARY 09/30/2016 SAMMY RICHARDS Ot J44.9 CHRONIC OBSTRUCTIVE PULMONARY DISEASE, U 09/30/2016 SAMMY RICHARDSP Ot Z79.899 OTHER SENIOR LIVING (CURRENT) DRUG THERAPY 09/30/2016 SAMMY RICHARDSP Ot R42 DIZZINESS AND GIDDINESS 09/30/2016 SAMMY RICHARDSP Ot C34.11 MALIGNANT NEOPLASM OF UPPER LOBE, RIGHT 09/30/2016 SAMMY RICHARDS ANESTHESIOLOGIST AND CRITICAL CARE Ot R06.00 DYSPNEA, UNSPECIFIED 09/30/2016 ANY ANDRZEJ N Ot 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 09/30/2016 NAY ANDRZEJ N Ot I10 ESSENTIAL (PRIMARY) HYPERTENSION 09/30/2016 NAY ANDRZEJ N Ot I25.10 ATHSCL HEART DISEASE OF [place] CORONARY 09/30/2016 NAY, ANDRZEJ Gilman Ot J44.9 CHRONIC OBSTRUCTIVE PULMONARY DISEASE, U 09/30/2016 NAY ANDRZEJ N Ot Z23 ENCOUNTER FOR IMMUNIZATION 09/30/2016 NAYANDRZEJ N Ot Z51.11 ENCOUNTER FOR ANTINEOPLASTIC CHEMOTHERAP 09/30/2016 NAYANDRZEJ N Ot Z79.899 OTHER NAILHEAD SETTER (CURRENT) DRUG THERAPY 10/01/2016 SAMMY RICHARDS ANESTHESIOLOGIST AND CRITICAL CARE Ot C34.11 MALIGNANT NEOPLASM OF UPPER LOBE, RIGHT 10/01/2016 SAMMY RICHARDS ANESTHESIOLOGIST AND CRITICAL CARE Ot C34.11 MALIGNANT NEOPLASM OF UPPER LOBE, RIGHT 10/01/2016 SAMMY RICHARDS ANESTHESIOLOGIST AND CRITICAL CARE Ot R06.00 DYSPNEA, UNSPECIFIED 10/15/2016 NAY ANDRZEJ N Ot 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 10/15/2016 ANY, ANDRZEJ N Ot I10 ESSENTIAL (PRIMARY) HYPERTENSION 10/15/2016 NAYANDRZEJ N Ot I25.10 ATHSCL HEART DISEASE OF [place] CORONARY 10/15/2016 NAYANDRZEJ Ot J44.9 CHRONIC OBSTRUCTIVE PULMONARY DISEASE, U 10/15/2016 ANDRZEJ TEE N Ot Z23 ENCOUNTER FOR IMMUNIZATION 10/15/2016 NAYANDRZEJ N Ot Z51.11 ENCOUNTER FOR ANTINEOPLASTIC CHEMOTHERAP 10/15/2016 NAYANDRZEJ N Ot Z79.899 OTHER SENIOR LIVING (CURRENT) DRUG THERAPY 10/18/2016 NAYANDRZEJ N Ot C34.11 MALIGNANT NEOPLASM OF UPPER LOBE, RIGHT 10/18/2016 NAY ANDRZEJ N Ot I10 ESSENTIAL (PRIMARY) HYPERTENSION 10/18/2016 ANDRZEJ TEE N Ot I25.10 ATHSCL HEART DISEASE OF [place] CORONARY 10/18/2016 ANDRZEJ TEE N Ot J44.9 CHRONIC OBSTRUCTIVE PULMONARY DISEASE, U 10/18/2016 NAY, BOBAN N Ot Z23 ENCOUNTER FOR IMMUNIZATION 10/18/2016 ANDRZEJ TEE Ot Z51.0 ENCOUNTER FOR ANTINEOPLASTIC RADIATION T 10/18/2016 ANDRZEJ TEE Ot Z51.11 ENCOUNTER FOR ANTINEOPLASTIC CHEMOTHERAP 10/18/2016 ANDRZEJ TEE Ot Z79.899 OTHER NAILHEAD SETTER (CURRENT) DRUG THERAPY 10/28/2016 SAMMY RICHARDS ANESTHESIOLOGIST AND CRITICAL CARE Ot C34.11 MALIGNANT NEOPLASM OF UPPER LOBE, RIGHT 10/30/2016 SAMMY RICHARDS ANESTHESIOLOGIST AND CRITICAL CARE Ot C34.11 MALIGNANT NEOPLASM OF UPPER LOBE, RIGHT 11/10/2016 NEY WADE MD Ot 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 11/10/2016 NEY WADE MD Ot 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/10/2016 NEY WADE MD Ot C79.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 11/10/2016 NEY WADE MD Ot F32.9 MAJOR DEPRESSIVE DISORDER, SINGLE EPISOD 11/10/2016 NEY WADE MD Ot I10 ESSENTIAL (PRIMARY) HYPERTENSION 11/10/2016 NEY WADE MD Ot I48.91 UNSPECIFIED ATRIAL FIBRILLATION 11/10/2016 NEY WADE MD Ot J44.9 CHRONIC OBSTRUCTIVE PULMONARY DISEASE, U 11/10/2016 NEY WADE MD Ot K21.9 GASTRO-ESOPHAGEAL REFLUX DISEASE WITHOUT 11/10/2016 NEY WADE MD Ot M19.91 PRIMARY OSTEOARTHRITIS, UNSPECIFIED SITE 11/10/2016 NEY WADE MD Ot R64 CACHEXIA 11/10/2016 NEY WADE MD Ot Z79.01 NAILHEAD SETTER (CURRENT) USE OF ANTICOAGULANT 11/10/2016 NEY WADE MD Ot Z87.891 PERSONAL HISTORY OF NICOTINE DEPENDENCE 11/10/2016 NEY WADE MD Ot Z92.21 PERSONAL HISTORY OF ANTINEOPLASTIC CHEMO 11/10/2016 NEY WADE MD Ot Z92.3 PERSONAL HISTORY OF IRRADIATION 11/17/2016 ANDRZEJ TEE Ot 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 11/17/2016 ANDRZEJ TEE Ot I10 ESSENTIAL (PRIMARY) HYPERTENSION 11/17/2016 ANDRZEJ TEE Ot I25.10 ATHSCL HEART DISEASE OF [place] CORONARY 11/17/2016 ANDRZEJ TEE N Ot J44.9 CHRONIC OBSTRUCTIVE PULMONARY DISEASE, U 11/17/2016 NAYANDRZEJ VALLEJO N Ot Z23 ENCOUNTER FOR IMMUNIZATION 11/17/2016 ANDRZEJ TEE N Ot Z51.11 ENCOUNTER FOR ANTINEOPLASTIC CHEMOTHERAP 11/17/2016 ANDRZEJ TEE N Ot Z79.899 OTHER NAILHEAD SETTER (CURRENT) DRUG THERAPY 11/21/2016 NAY JULESAN N Ot 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 11/21/2016 NAY BOBEDDIE N Ot I10 ESSENTIAL (PRIMARY) HYPERTENSION 11/21/2016 NAY JULESAN N Ot I25.10 ATHSCL HEART DISEASE OF [place] CORONARY 11/21/2016 ANDRZEJ TEE N Ot J44.9 CHRONIC OBSTRUCTIVE PULMONARY DISEASE, U 11/21/2016 ANDRZEJ TEE N Ot Z23 ENCOUNTER FOR IMMUNIZATION 11/21/2016 NAY JULESEDDIE N Ot Z51.11 ENCOUNTER FOR ANTINEOPLASTIC CHEMOTHERAP 11/21/2016 ANDRZEJ TEE N Ot Z79.899 OTHER NAILHEAD SETTER (CURRENT) DRUG THERAPY 2016 ANDRZEJ TEE N Ot C34.11 MALIGNANT NEOPLASM OF UPPER LOBE, RIGHT 11/26/2016 NAY BOBAN N Ot C34.11 MALIGNANT NEOPLASM OF UPPER LOBE, RIGHT 11/26/2016 NAY JULESEDDIE N Ot 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 11/26/2016 NAY JULESAN N Ot 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 11/26/2016 NAY JULESEDDIE N Ot I10 ESSENTIAL (PRIMARY) HYPERTENSION 11/26/2016 NAY ANDRZEJ N Ot I25.10 ATHSCL HEART DISEASE OF [place] CORONARY 11/26/2016 ANDRZEJ TEE N Ot J44.9 CHRONIC OBSTRUCTIVE PULMONARY DISEASE, U 11/26/2016 NAY, JULESAN N Ot Z23 ENCOUNTER FOR IMMUNIZATION 11/26/2016 NAY ANDRZEJ N Ot Z51.11 ENCOUNTER FOR ANTINEOPLASTIC CHEMOTHERAP 11/26/2016 NAY JULESEDDIE N Ot Z79.899 OTHER SENIOR LIVING (CURRENT) DRUG THERAPY 11/27/2016 PETER NIELSON DO, Ot I25.10 ATHSCL HEART DISEASE OF [place] CORONARY 11/27/2016 PETER NIELSON DO, Ot J44.9 CHRONIC OBSTRUCTIVE PULMONARY DISEASE, U 11/27/2016 PETER NIELSON DO Ot Z72.0 TOBACCO USE 11/27/2016 PETER NIELSON DO Ot J44.9 CHRONIC OBSTRUCTIVE PULMONARY DISEASE, U 11/27/2016 PETER NIELSON DO Ot Z72.0 TOBACCO USE 11/27/2016 FRANTZ DUBOIS MD Ot E78.2 MIXED HYPERLIPIDEMIA 11/27/2016 FRANTZ DUBOIS MD Ot I10 ESSENTIAL (PRIMARY) HYPERTENSION 11/27/2016 FRANTZ DUBOIS MD Ot I25.10 ATHSCL HEART DISEASE OF [place] CORONARY 11/27/2016 FRANTZ DUBOIS MD Ot I48.0 PAROXYSMAL ATRIAL FIBRILLATION 11/27/2016 FRANTZ DUBOIS MD Ot E78.2 MIXED HYPERLIPIDEMIA 11/27/2016 FRANTZ DUBOIS MD J Ot I10 ESSENTIAL (PRIMARY) HYPERTENSION 11/27/2016 FRANTZ DUBOIS MD Ot I25.10 ATHSCL HEART DISEASE OF [place] CORONARY 11/27/2016 FRANTZ DUBOIS MD Ot I48.0 PAROXYSMAL ATRIAL FIBRILLATION 11/27/2016 PETER NIELSON DO Ot J44.9 CHRONIC OBSTRUCTIVE PULMONARY DISEASE, U 11/27/2016 PETER NIELSON DO Ot R91.8 OTHER NONSPECIFIC ABNORMAL FINDING OF [place] 11/27/2016 SAMMY RICHARDSP Ot 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 11/27/2016 SAMMY RICHARDSP Ot I10 ESSENTIAL (PRIMARY) HYPERTENSION 11/27/2016 SAMMY RICHARDSP Ot I25.10 ATHSCL HEART DISEASE OF [place] CORONARY 11/27/2016 SAMMY RICHARDSP Ot J44.9 CHRONIC OBSTRUCTIVE PULMONARY DISEASE, U 11/27/2016 SAMMY RICHARDSP Ot Z79.899 OTHER SENIOR LIVING (CURRENT) DRUG THERAPY 11/27/2016 SAMMY RICHARDSP Ot R42 DIZZINESS AND GIDDINESS 11/27/2016 SAMMY RICHARDS ANESTHESIOLOGIST AND CRITICAL CARE Ot C34.11 MALIGNANT NEOPLASM OF UPPER LOBE, RIGHT 11/27/2016 SAMMY RICHARDSP Ot R06.00 DYSPNEA, UNSPECIFIED 11/27/2016 SAMMY RICHARDSP Ot C34.11 MALIGNANT NEOPLASM OF UPPER LOBE, RIGHT 11/27/2016 ANDRZEJ TEE Mukul Ot 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 11/27/2016 ANDRZEJ TEE Mukul Ot I10 ESSENTIAL (PRIMARY) HYPERTENSION 11/27/2016 ANDRZEJ TEE Mukul Ot I25.10 ATHSCL HEART DISEASE OF [place] CORONARY 11/27/2016 ANDRZEJ TEE Mukul Ot J44.9 CHRONIC OBSTRUCTIVE PULMONARY DISEASE, U 11/27/2016 ANDRZEJ TEE Mukul Ot Z23 ENCOUNTER FOR IMMUNIZATION 11/27/2016 ANDRZEJ TEE Mukul Ot Z51.11 ENCOUNTER FOR ANTINEOPLASTIC CHEMOTHERAP 11/27/2016 ANDRZEJ TEE Mukul Ot Z79.899 OTHER NAILHEAD SETTER (CURRENT) DRUG THERAPY 11/27/2016 ANDRZEJ TEE Mukul Ot C34.11 MALIGNANT NEOPLASM OF UPPER LOBE, RIGHT 11/27/2016 ANDRZEJ TEE Mukul Ot 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 11/28/2016 SAMMY RICHARDS S ANESTHESIOLOGIST AND CRITICAL CARE Ot C34.11 MALIGNANT NEOPLASM OF UPPER LOBE, RIGHT 11/28/2016 SAMMY RICHARDS S ANESTHESIOLOGIST AND CRITICAL CARE Ot C79.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 11/28/2016 SAMMY RICHARDS S ANESTHESIOLOGIST AND CRITICAL CARE Ot R42 DIZZINESS AND GIDDINESS 11/28/2016 SAMMY RICHARDS S ANESTHESIOLOGIST AND CRITICAL CARE Ot C34.11 MALIGNANT NEOPLASM OF UPPER LOBE, RIGHT 11/28/2016 SAMMY RICHARDS S ANESTHESIOLOGIST AND CRITICAL CARE Ot C79.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 11/28/2016 SAMMY RICHARDS S ANESTHESIOLOGIST AND CRITICAL CARE Ot R42 DIZZINESS AND GIDDINESS 12/03/2016 SAMMY RICHARDS S ANESTHESIOLOGIST AND CRITICAL CARE Ot C34.11 MALIGNANT NEOPLASM OF UPPER LOBE, RIGHT 12/03/2016 SAMMY RICHARDS S ANESTHESIOLOGIST AND CRITICAL CARE Ot C79.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 12/03/2016 SAMMY RICHARDS S ANESTHESIOLOGIST AND CRITICAL CARE Ot R42 DIZZINESS AND GIDDINESS 12/09/2016 ANDRZEJ TEE Mukul Ot 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 12/09/2016 ANDRZEJ TEE Mukul Ot I10 ESSENTIAL (PRIMARY) HYPERTENSION 12/09/2016 NAY JULESEDDIE Mukul Ot I25.10 ATHSCL HEART DISEASE OF [place] CORONARY 12/09/2016 NAY JULESEDDIE Mukul Ot J44.9 CHRONIC OBSTRUCTIVE PULMONARY DISEASE, U 12/09/2016 ANDRZEJ TEE Ot Z23 ENCOUNTER FOR IMMUNIZATION 12/09/2016 ANDRZEJ TEE Ot Z51.11 ENCOUNTER FOR ANTINEOPLASTIC CHEMOTHERAP 12/09/2016 ANDRZEJ TEE Ot Z79.899 OTHER SENIOR LIVING (CURRENT) DRUG THERAPY 12/10/2016 ANDRZEJ TEE Ot B37.0 CANDIDAL STOMATITIS 12/10/2016 ANDRZEJ TEE Ot 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 12/10/2016 ANDRZEJ TEE Ot C34.11 MALIGNANT NEOPLASM OF UPPER LOBE, RIGHT 12/10/2016 ANDRZEJ TEE Ot 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/10/2016 ANDRZEJ TEE Ot C79.31 SECONDARY MALIGNANT NEOPLASM OF BRAIN 12/10/2016 ANDRZEJ TEE Ot C79.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 12/10/2016 ANDRZEJ TEE Ot E78.00 PURE HYPERCHOLESTEROLEMIA, UNSPECIFIED 12/10/2016 ANDRZEJ TEE Ot E86.0 DEHYDRATION 12/10/2016 ANDRZEJ TEE Ot F32.9 MAJOR DEPRESSIVE DISORDER, SINGLE EPISOD 12/10/2016 ANDRZEJ TEE Ot G47.33 OBSTRUCTIVE SLEEP APNEA (ADULT) (PEDIATR 12/10/2016 ANDRZEJ TEE Ot G93.6 CEREBRAL EDEMA 12/10/2016 ANDRZEJ TEE Ot 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, BOTH EYES 12/10/2016 ANDRZEJ TEE Ot H91.90 UNSPECIFIED HEARING LOSS, UNSPECIFIED EA 12/10/2016 ANDRZEJ TEE Ot I10 ESSENTIAL (PRIMARY) HYPERTENSION 12/10/2016 ANDRZEJ TEE Ot I48.2 CHRONIC ATRIAL FIBRILLATION 12/10/2016 ANDRZEJ TEE Ot J44.9 CHRONIC OBSTRUCTIVE PULMONARY DISEASE, U 12/10/2016 ANDRZEJ TEE Ot K21.9 GASTRO-ESOPHAGEAL REFLUX DISEASE WITHOUT 12/10/2016 ANDRZEJ TEE Ot M19.91 PRIMARY OSTEOARTHRITIS, UNSPECIFIED SITE 12/10/2016 ANDRZEJ TEE Ot R63.0 ANOREXIA 12/10/2016 ANDRZEJ TEE Ot S01.81XA LACERATION W/O FOREIGN BODY OF OTH PART 12/10/2016 NAY ANDRZEJ Gilman Ot W19.XXXA UNSPECIFIED FALL, INITIAL ENCOUNTER 12/10/2016 ANDRZEJ TEE Ot Z23 ENCOUNTER FOR IMMUNIZATION 12/10/2016 ANDRZEJ TEE Ot Z79.01 SENIOR LIVING (CURRENT) USE OF ANTICOAGULANT 12/10/2016 ANDRZEJ TEE Ot Z87.891 PERSONAL HISTORY OF NICOTINE DEPENDENCE 12/10/2016 ANDRZEJ TEE Ot Z92.21 PERSONAL HISTORY OF ANTINEOPLASTIC CHEMO 12/10/2016 ANDRZEJ TEE Ot Z92.3 PERSONAL HISTORY OF IRRADIATION 12/11/2016 ANDRZEJ TEE Ot B37.0 CANDIDAL STOMATITIS 12/11/2016 ANDRZEJ TEE Ot 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 12/11/2016 ANDRZEJ TEE Ot C34.11 MALIGNANT NEOPLASM OF UPPER LOBE, RIGHT 12/11/2016 ANDRZEJ TEE Ot 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/11/2016 ANDRZEJ TEE Ot C79.31 SECONDARY MALIGNANT NEOPLASM OF BRAIN 12/11/2016 ANDRZEJ TEE Ot C79.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 12/11/2016 ANDRZEJ TEE Ot E78.00 PURE HYPERCHOLESTEROLEMIA, UNSPECIFIED 12/11/2016 ANDRZEJ TEE Ot E86.0 DEHYDRATION 12/11/2016 ANDRZEJ TEE Ot F32.9 MAJOR DEPRESSIVE DISORDER, SINGLE EPISOD 12/11/2016 ANDRZEJ TEE Ot G47.33 OBSTRUCTIVE SLEEP APNEA (ADULT) (PEDIATR 12/11/2016 ANDRZEJ TEE Ot G93.6 CEREBRAL EDEMA 12/11/2016 ANDRZEJ TEE Ot 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, BOTH EYES 12/11/2016 ANDRZEJ TEE Ot H91.90 UNSPECIFIED HEARING LOSS, UNSPECIFIED EA 12/11/2016 ANDRZEJ TEE Ot I10 ESSENTIAL (PRIMARY) HYPERTENSION 12/11/2016 ANDRZEJ TEE Ot I48.2 CHRONIC ATRIAL FIBRILLATION 12/11/2016 ANDRZEJ TEE Ot J44.9 CHRONIC OBSTRUCTIVE PULMONARY DISEASE, U 12/11/2016 ANDRZEJ TEE Ot K21.9 GASTRO-ESOPHAGEAL REFLUX DISEASE WITHOUT 12/11/2016 ANDRZEJ TEE Ot M19.91 PRIMARY OSTEOARTHRITIS, UNSPECIFIED SITE 12/11/2016 ANDRZEJ TEE Ot R63.0 ANOREXIA 12/11/2016 ANDRZEJ TEE Ot S01.81XA LACERATION W/O FOREIGN BODY OF OTH PART 12/11/2016 ANDRZEJ TEE Ot W19.XXXA UNSPECIFIED FALL, INITIAL ENCOUNTER 12/11/2016 ANDRZEJ TEE Ot Z23 ENCOUNTER FOR IMMUNIZATION 12/11/2016 ANDRZEJ TEE Ot Z79.01 NAILHEAD SETTER (CURRENT) USE OF ANTICOAGULANT 12/11/2016 ANDRZEJ TEE Ot Z87.891 PERSONAL HISTORY OF NICOTINE DEPENDENCE 12/11/2016 ANDRZEJ TEE Ot Z92.21 PERSONAL HISTORY OF ANTINEOPLASTIC CHEMO 12/11/2016 NADRZEJ TEE Ot Z92.3 PERSONAL HISTORY OF IRRADIATION 12/11/2016 ANDRZEJ TEE Ot B37.0 CANDIDAL STOMATITIS 12/11/2016 ANDRZEJ TEE Ot 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 12/11/2016 ANDRZEJ TEE Ot C34.11 MALIGNANT NEOPLASM OF UPPER LOBE, RIGHT 12/11/2016 ANDRZEJ TEE Ot 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/11/2016 ANDRZEJ TEE Ot C79.31 SECONDARY MALIGNANT NEOPLASM OF BRAIN 12/11/2016 ANDRZEJ TEE Ot C79.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 12/11/2016 ANDRZEJ TEE Ot E78.00 PURE HYPERCHOLESTEROLEMIA, UNSPECIFIED 12/11/2016 ANDRZEJ TEE Ot E86.0 DEHYDRATION 12/11/2016 ANDRZEJ TEE Ot F32.9 MAJOR DEPRESSIVE DISORDER, SINGLE EPISOD 12/11/2016 ANDRZEJ TEE Ot G47.33 OBSTRUCTIVE SLEEP APNEA (ADULT) (PEDIATR 12/11/2016 ANDRZEJ TEE Ot G93.6 CEREBRAL EDEMA 12/11/2016 ANDRZEJ TEE Ot 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, BOTH EYES 12/11/2016 ANDRZEJ TEE Ot H91.90 UNSPECIFIED HEARING LOSS, UNSPECIFIED EA 12/11/2016 ANDRZEJ TEE Ot I10 ESSENTIAL (PRIMARY) HYPERTENSION 12/11/2016 ANDRZEJ TEE Ot I48.2 CHRONIC ATRIAL FIBRILLATION 12/11/2016 ANDRZEJ TEE Ot J44.9 CHRONIC OBSTRUCTIVE PULMONARY DISEASE, U 12/11/2016 ANDRZEJ TEE Ot K21.9 GASTRO-ESOPHAGEAL REFLUX DISEASE WITHOUT 12/11/2016 ANDRZEJ TEE Ot M19.91 PRIMARY OSTEOARTHRITIS, UNSPECIFIED SITE 12/11/2016 ANDRZEJ TEE Ot R63.0 ANOREXIA 12/11/2016 ANDRZEJ TEE Ot S01.81XA LACERATION W/O FOREIGN BODY OF OTH PART 12/11/2016 ANDRZEJ TEE Ot W19.XXXA UNSPECIFIED FALL, INITIAL ENCOUNTER 12/11/2016 ANDRZEJ TEE Ot Y99.8 OTHER EXTERNAL CAUSE STATUS 12/11/2016 ANDRZEJ TEE Ot Z23 ENCOUNTER FOR IMMUNIZATION 12/11/2016 ANDRZEJ TEE Ot Z79.01 NAILHEAD SETTER (CURRENT) USE OF ANTICOAGULANT 12/11/2016 ANDRZEJ TEE Ot Z87.891 PERSONAL HISTORY OF NICOTINE DEPENDENCE 12/11/2016 ANDRZEJ TEE Ot Z92.21 PERSONAL HISTORY OF ANTINEOPLASTIC CHEMO 12/11/2016 ANDRZEJ TEE Ot Z92.3 PERSONAL HISTORY OF IRRADIATION 12/16/2016 ANDRZEJ TEE Ot B37.0 CANDIDAL STOMATITIS 12/16/2016 ANDRZEJ TEE Ot 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 12/16/2016 ANDRZEJ TEE Ot C34.11 MALIGNANT NEOPLASM OF UPPER LOBE, RIGHT 12/16/2016 ANDRZEJ TEE Ot 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/16/2016 ANDRZEJ TEE Ot C79.31 SECONDARY MALIGNANT NEOPLASM OF BRAIN 12/16/2016 ANDRZEJ TEE Ot C79.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 12/16/2016 ANDRZEJ TEE Ot E78.00 PURE HYPERCHOLESTEROLEMIA, UNSPECIFIED 12/16/2016 ANDRZEJ TEE Ot E87.1 HYPO-OSMOLALITY AND HYPONATREMIA 12/16/2016 ANDRZEJ TEE Ot F32.9 MAJOR DEPRESSIVE DISORDER, SINGLE EPISOD 12/16/2016 ANDRZEJ TEE Ot G47.33 OBSTRUCTIVE SLEEP APNEA (ADULT) (PEDIATR 12/16/2016 ANDRZEJ TEE Ot G93.6 CEREBRAL EDEMA 12/16/2016 ANDRZEJ TEE Mukul Ot 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, BOTH EYES 12/16/2016 NAY JULESEDDIE Mukul Ot I10 ESSENTIAL (PRIMARY) HYPERTENSION 12/16/2016 ANDRZEJ TEE Mukul Ot I48.2 CHRONIC ATRIAL FIBRILLATION 12/16/2016 ANDRZEJ TEE Mukul Ot J44.9 CHRONIC OBSTRUCTIVE PULMONARY DISEASE, U 12/16/2016 ANDRZEJ TEE Mukul Ot K21.9 GASTRO-ESOPHAGEAL REFLUX DISEASE WITHOUT 12/16/2016 ANDRZEJ TEE Mukul Ot Z79.01 SENIOR LIVING (CURRENT) USE OF ANTICOAGULANT 12/16/2016 ANDRZEJ TEE Mukul Ot Z87.891 PERSONAL HISTORY OF NICOTINE DEPENDENCE 12/16/2016 ANDRZEJ TEE Mukul Ot Z92.21 PERSONAL HISTORY OF ANTINEOPLASTIC CHEMO 12/16/2016 ANDRZEJ TEE Mukul Ot Z92.3 PERSONAL HISTORY OF IRRADIATION 12/18/2016 NAYANDRZEJ Ot C34.11 MALIGNANT NEOPLASM OF UPPER LOBE, RIGHT 12/18/2016 NAY JULESEDDIE Mukul Ot 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/18/2016 NAY ANDRZEJ Gilman Ot C79.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 12/18/2016 ANDRZEJ TEE Mukul Ot I10 ESSENTIAL (PRIMARY) HYPERTENSION 12/18/2016 ANDRZEJ TEE Mukul Ot I25.10 ATHSCL HEART DISEASE OF [place] CORONARY 12/18/2016 ANDRZEJ TEE Mukul Ot J44.9 CHRONIC OBSTRUCTIVE PULMONARY DISEASE, U 12/18/2016 ANDRZEJ TEE Mukul Ot Z51.0 ENCOUNTER FOR ANTINEOPLASTIC RADIATION T 12/18/2016 NAYJULESEDDIE Mukul Ot Z51.11 ENCOUNTER FOR ANTINEOPLASTIC CHEMOTHERAP 12/18/2016 NAY JULESEDDIE Mukul Ot Z79.01 SENIOR LIVING (CURRENT) USE OF ANTICOAGULANT 12/18/2016 ANDRZEJ TEE Ot Z79.899 OTHER NAILHEAD SETTER (CURRENT) DRUG THERAPY 12/18/2016 NAYANDRZEJ VALLEJO Ot Z87.891 PERSONAL HISTORY OF NICOTINE DEPENDENCE 12/18/2016 SAMMY RICHARDS ANESTHESIOLOGIST AND CRITICAL CARE Ot C34.11 MALIGNANT NEOPLASM OF UPPER LOBE, RIGHT 12/18/2016 SAMMY RICHARDS ANESTHESIOLOGIST AND CRITICAL CARE Ot C79.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 12/18/2016 SAMMY RICHARDS ANESTHESIOLOGIST AND CRITICAL CARE Ot R42 DIZZINESS AND GIDDINESS Procedures Code Description Performed By Performed On [id number] EXCISION OF ABDOMINAL WALL, PERCUTANEOUS 11/10/2016 Results Test Result Range Sputum Gram stain - 03/31/16 12:00 GRAM STAIN SPUTUM FEW WBC'S, NO BACTERIA NRG Bacteria identification in bronchial specimen by aerobe culture - 03/31/16 12: 00 Bacteria identification in bronchial specimen by aerobe culture NG NRG Fungus culture - 03/31/16 12:00 FUNGUS REPORT NO FUNGUS GROWTH OBSERVED NRG Mycobacterium species detection by organism specific culture - 03/31/16 12:00 DATE/TIME MICROSCOPIC 04/02/16 10:15 NRG MICROSCOPIC NO ACID-FAST BACILLI FOUND NRG AFB CULTURE NO MYCOBACTERIA RECOVERED AFTER 6 WEEKS NRG DATE FINAL AFB CULTURE 05/27/16 10:40 NRG Sputum Gram stain - 03/31/16 12:05 GRAM STAIN SPUTUM FEW WBC'S, NO BACTERIA NRG Bacteria identification in bronchial specimen by aerobe culture - 03/31/16 12: 05 Bacteria identification in bronchial specimen by aerobe culture NG NRG Fungus culture - 03/31/16 12:05 Fungus culture NG NRG Methicillin resistant Staphylococcus aureus (MRSA) screening culture - 09:25 Methicillin resistant Staphylococcus aureus (MRSA) screening culture NEG NRG Automated blood complete blood count (hemogram) panel - 11/07/16 12:40 Blood leukocytes automated count (number/volume) 7.0 10*3/ uL 4.3-11.0 Blood erythrocytes automated count (number/volume) 3.97 10*6 /uL 4.35-5.85 Venous blood hemoglobin measurement (mass/volume) 11.4 g/dL 13.3-17.7 Blood hematocrit (volume fraction) 35 % 40-54 Automated erythrocyte mean corpuscular volume 89 [foz_us] 80-99 Automated erythrocyte mean corpuscular hemoglobin (mass per erythrocyte) 29 pg 25-34 Automated erythrocyte mean corpuscular hemoglobin concentration measurement ( mass/volume) 32 g/dL 32-36 Automated erythrocyte distribution width ratio 14.0 % 10.0-14.5 Automated blood platelet count (count/volume) 294 10*3/uL 130-400 Automated blood platelet mean volume measurement 9.9 [foz_us ] 7.4-10.4 Complete urinalysis with reflex to culture - 11/07/16 12:40 Urine color determination YELLOW NRG Urine clarity determination CLEAR NRG Urine pH measurement by test strip 6 5- 9 Specific gravity of urine by test strip 1.010 1.016-1.022 Urine protein assay by test strip, semi-quantitative 1+ NEGATIVE Urine glucose detection by automated test strip NEGATIVE NEGATIVE Erythrocytes detection in urine sediment by light microscopy 1+ NEGATIVE Urine ketones detection by automated test strip NEGATIVE NEGATIVE Urine nitrite detection by test strip NEGATIVE NEGATIVE Urine total bilirubin detection by test strip NEGATIVE NEGATIVE Urine urobilinogen measurement by automated test strip (mass/volume) NORMAL NORMAL Urine leukocyte esterase detection by dipstick NEGATIVE NEGATIVE Automated urine sediment erythrocyte count by microscopy (number/high power field) NONE NRG Automated urine sediment leukocyte count by microscopy (number/high power field ) NONE NRG Bacteria detection in urine sediment by light microscopy NEGATIVE NRG Squamous epithelial cells detection in urine sediment by light microscopy 0-2 NRG Crystals detection in urine sediment by light microscopy NONE NRG Casts detection in urine sediment by light microscopy PRESENT NRG Mucus detection in urine sediment by light microscopy NEGATIVE NRG Complete urinalysis with reflex to culture NO NRG Hyaline casts detection in urine sediment by light microscopy 5-10 NR Comprehensive metabolic panel - 11/07/16 12:40 Serum or plasma sodium measurement (moles/volume) 134 mmol/ L 135-145 Serum or plasma potassium measurement (moles/volume) 4.0 mmol/L 3.6-5.0 Serum or plasma chloride measurement (moles/volume) 101 mmol /L 98-107 Carbon dioxide 22 mmol/L 21-32 Serum or plasma anion gap determination (moles/volume) 11 mmol/L 5-14 Serum or plasma urea nitrogen measurement (mass/volume) 14 mg/dL 7-18 Serum or plasma creatinine measurement (mass/volume) 1.58 mg /dL 0.60-1.30 Serum or plasma urea nitrogen/creatinine mass ratio 9 NRG Serum or plasma creatinine measurement with calculation of estimated glomerular filtration rate 42 NRG Serum or plasma glucose measurement (mass/volume) 141 mg/dL 70-105 Serum or plasma calcium measurement (mass/volume) 9.4 mg/dL 8.5-10.1 Serum or plasma total bilirubin measurement (mass/volume) 0.4 mg/dL 0.1-1.0 Serum or plasma alkaline phosphatase measurement (enzymatic activity/volume) 126 U/L 40-136 Serum or plasma aspartate aminotransferase measurement (enzymatic activity/ volume) 23 U/L 5-34 Serum or plasma alanine aminotransferase measurement (enzymatic activity/volume ) 19 U/L 0-55 Serum or plasma protein measurement (mass/volume) 7.3 g/dL 6.4-8.2 Serum or plasma albumin measurement (mass/volume) 3.9 g/dL 3.2-4.5 Lipase - 11/07/16 12:40 Lipase 20 U/L 8-78 Complete blood count (CBC) with automated white blood cell (WBC) differential - 11/08/16 05:30 Blood leukocytes automated count (number/volume) 6.5 10*3/ uL 4.3-11.0 Blood erythrocytes automated count (number/volume) 3.68 10*6 /uL 4.35-5.85 Venous blood hemoglobin measurement (mass/volume) 10.6 g/dL 13.3-17.7 Blood hematocrit (volume fraction) 33 % 40-54 Automated erythrocyte mean corpuscular volume 89 [foz_us] 80-99 Automated erythrocyte mean corpuscular hemoglobin (mass per erythrocyte) 29 pg 25-34 Automated erythrocyte mean corpuscular hemoglobin concentration measurement ( mass/volume) 32 g/dL 32-36 Automated erythrocyte distribution width ratio 14.0 % 10.0-14.5 Automated blood platelet count (count/volume) 267 10*3/uL 130-400 Automated blood platelet mean volume measurement 10.2 [foz_ us] 7.4-10.4 Automated blood neutrophils/100 leukocytes 72 % 42-75 Automated blood lymphocytes/100 leukocytes 9 % 12-44 Blood monocytes/100 leukocytes 12 % 0-12 Automated blood eosinophils/100 leukocytes 6 % 0-10 Automated blood basophils/100 leukocytes 1 % 0-10 Blood neutrophils automated count (number/volume) 4.7 10*3 1.8-7.8 Blood lymphocytes automated count (number/volume) 0.6 10*3 1.0-4.0 Blood monocytes automated count (number/volume) 0.8 10*3 0.0-1.0 Automated eosinophil count 0.4 10*3/uL 0.0-0.3 Automated blood basophil count (count/volume) 0.1 10*3/uL 0.0-0.1 Comprehensive metabolic panel - 11/08/16 05:30 Serum or plasma sodium measurement (moles/volume) 137 mmol/ L 135-145 Serum or plasma potassium measurement (moles/volume) 4.1 mmol/L 3.6-5.0 Serum or plasma chloride measurement (moles/volume) 103 mmol /L 98-107 Carbon dioxide 22 mmol/L 21-32 Serum or plasma anion gap determination (moles/volume) 12 mmol/L 5-14 Serum or plasma urea nitrogen measurement (mass/volume) 14 mg/dL 7-18 Serum or plasma creatinine measurement (mass/volume) 1.40 mg /dL 0.60-1.30 Serum or plasma urea nitrogen/creatinine mass ratio 10 NRG Serum or plasma creatinine measurement with calculation of estimated glomerular filtration rate 48 NRG Serum or plasma glucose measurement (mass/volume) 98 mg/dL 70-105 Serum or plasma calcium measurement (mass/volume) 9.0 mg/dL 8.5-10.1 Serum or plasma total bilirubin measurement (mass/volume) 0.4 mg/dL 0.1-1.0 Serum or plasma alkaline phosphatase measurement (enzymatic activity/volume) 105 U/L 40-136 Serum or plasma aspartate aminotransferase measurement (enzymatic activity/ volume) 23 U/L 5-34 Serum or plasma alanine aminotransferase measurement (enzymatic activity/volume ) 18 U/L 0-55 Serum or plasma protein measurement (mass/volume) 6.4 g/dL 6.4-8.2 Serum or plasma albumin measurement (mass/volume) 3.2 g/dL 3.2-4.5 Complete blood count (CBC) with automated white blood cell (WBC) differential - 11/10/16 06:15 Blood leukocytes automated count (number/volume) 6.7 10*3/ uL 4.3-11.0 Blood erythrocytes automated count (number/volume) 3.80 10*6 /uL 4.35-5.85 Venous blood hemoglobin measurement (mass/volume) 10.8 g/dL 13.3-17.7 Blood hematocrit (volume fraction) 34 % 40-54 Automated erythrocyte mean corpuscular volume 88 [foz_us] 80-99 Automated erythrocyte mean corpuscular hemoglobin (mass per erythrocyte) 28 pg 25-34 Automated erythrocyte mean corpuscular hemoglobin concentration measurement ( mass/volume) 32 g/dL 32-36 Automated erythrocyte distribution width ratio 14.1 % 10.0-14.5 Automated blood platelet count (count/volume) 284 10*3/uL 130-400 Automated blood platelet mean volume measurement 10.0 [foz_ us] 7.4-10.4 Automated blood neutrophils/100 leukocytes 76 % 42-75 Automated blood lymphocytes/100 leukocytes 8 % 12-44 Blood monocytes/100 leukocytes 11 % 0-12 Automated blood eosinophils/100 leukocytes 4 % 0-10 Automated blood basophils/100 leukocytes 1 % 0-10 Blood neutrophils automated count (number/volume) 5.2 10*3 1.8-7.8 Blood lymphocytes automated count (number/volume) 0.5 10*3 1.0-4.0 Blood monocytes automated count (number/volume) 0.8 10*3 0.0-1.0 Automated eosinophil count 0.3 10*3/uL 0.0-0.3 Automated blood basophil count (count/volume) 0.0 10*3/uL 0.0-0.1 PT panel in platelet poor plasma by coagulation assay - 11/10/16 06:15 Prothrombin time (PT) in platelet poor plasma by coagulation assay 14.7 s 12.2-14.7 INR in platelet poor plasma or blood by coagulation assay 1.2 0.8-1.4 Bacteria identification in isolate by anaerobe culture - 11/10/16 11:00 Bacteria identification in isolate by anaerobe culture [facility] Gram stain microscopy - 11/10/16 11:00 GRAM STAIN RESULT FEW WBC'S, NO BACTERIA OBSERVED [facility] Bacteria identification in wound by culture - 11/10/16 11:00 Bacteria identification in wound by culture [facility] Fungus culture - 11/10/16 11:00 Fungus culture [facility] Complete blood count (CBC) with automated white blood cell (WBC) differential - 12/07/16 14:24 Blood leukocytes automated count (number/volume) 11.9 10*3/ uL 4.3-11.0 Blood erythrocytes automated count (number/volume) 4.45 10*6 /uL 4.35-5.85 Venous blood hemoglobin measurement (mass/volume) 12.4 g/dL 13.3-17.7 Blood hematocrit (volume fraction) 38 % 40-54 Automated erythrocyte mean corpuscular volume 85 [foz_us] 80-99 Automated erythrocyte mean corpuscular hemoglobin (mass per erythrocyte) 28 pg 25-34 Automated erythrocyte mean corpuscular hemoglobin concentration measurement ( mass/volume) 33 g/dL 32-36 Automated erythrocyte distribution width ratio 17.6 % 10.0-14.5 Automated blood platelet count (count/volume) 251 10*3/uL 130-400 Automated blood platelet mean volume measurement 10.3 [foz_ us] 7.4-10.4 Automated blood neutrophils/100 leukocytes 86 % 42-75 Automated blood lymphocytes/100 leukocytes 3 % 12-44 Blood monocytes/100 leukocytes 11 % 0-12 Automated blood eosinophils/100 leukocytes 0 % 0-10 Automated blood basophils/100 leukocytes 0 % 0-10 Blood neutrophils automated count (number/volume) 10.2 10*3 1.8-7.8 Blood lymphocytes automated count (number/volume) 0.3 10*3 1.0-4.0 Blood monocytes automated count (number/volume) 1.4 10*3 0.0-1.0 Automated eosinophil count 0.0 10*3/uL 0.0-0.3 Automated blood basophil count (count/volume) 0.0 10*3/uL 0.0-0.1 Blood manual differential performed detection - 12/07/16 14:24 Blood monocytes/100 leukocytes 7 % NRG Manual blood segmented neutrophils/100 leukocytes 89 % NRG Blood band neutrophils/100 leukocytes 0 % NRG Manual blood lymphocytes/100 leukocytes 4 % NRG Manual eosinophils/100 leukocytes in nose 0 % NRG Manual blood basophils/100 leukocytes 0 % NRG Blood anisocytosis detection by light microscopy MODERATE NRG Comprehensive metabolic panel - 12/07/16 14:24 Serum or plasma sodium measurement (moles/volume) 137 mmol/ L 135-145 Serum or plasma potassium measurement (moles/volume) 4.5 mmol/L 3.6-5.0 Serum or plasma chloride measurement (moles/volume) 98 mmol/ L 98-107 Carbon dioxide 28 mmol/L 21-32 Serum or plasma anion gap determination (moles/volume) 11 mmol/L 5-14 Serum or plasma urea nitrogen measurement (mass/volume) 41 mg/dL 7-18 Serum or plasma creatinine measurement (mass/volume) 1.35 mg /dL 0.60-1.30 Serum or plasma urea nitrogen/creatinine mass ratio 30 NRG Serum or plasma creatinine measurement with calculation of estimated glomerular filtration rate 50 NRG Serum or plasma glucose measurement (mass/volume) 99 mg/dL 70-105 Serum or plasma calcium measurement (mass/volume) 9.2 mg/dL 8.5-10.1 Serum or plasma total bilirubin measurement (mass/volume) 0.5 mg/dL 0.1-1.0 Serum or plasma alkaline phosphatase measurement (enzymatic activity/volume) 83 U/L 40-136 Serum or plasma aspartate aminotransferase measurement (enzymatic activity/ volume) 38 U/L 5-34 Serum or plasma alanine aminotransferase measurement (enzymatic activity/volume ) 85 U/L 0-55 Serum or plasma protein measurement (mass/volume) 6.3 g/dL 6.4-8.2 Serum or plasma albumin measurement (mass/volume) 3.3 g/dL 3.2-4.5 Lipase - 12/07/16 14:24 Lipase 13 U/L 8-78 Complete urinalysis with reflex to culture - 12/07/16 14:40 Urine color determination YELLOW NRG Urine clarity determination SLIGHTLY CLOUDY NRG Urine pH measurement by test strip 6 5- 9 Specific gravity of urine by test strip 1.015 1.016-1.022 Urine protein assay by test strip, semi-quantitative 1+ NEGATIVE Urine glucose detection by automated test strip NEGATIVE NEGATIVE Erythrocytes detection in urine sediment by light microscopy NEGATIVE NEGATIVE Urine ketones detection by automated test strip NEGATIVE NEGATIVE Urine nitrite detection by test strip NEGATIVE NEGATIVE Urine total bilirubin detection by test strip NEGATIVE NEGATIVE Urine urobilinogen measurement by automated test strip (mass/volume) NORMAL NORMAL Urine leukocyte esterase detection by dipstick NEGATIVE NEGATIVE Automated urine sediment erythrocyte count by microscopy (number/high power field) NONE NRG Automated urine sediment leukocyte count by microscopy (number/high power field ) NONE NRG Bacteria detection in urine sediment by light microscopy NEGATIVE NRG Squamous epithelial cells detection in urine sediment by light microscopy NONE NRG Crystals detection in urine sediment by light microscopy NONE NRG Casts detection in urine sediment by light microscopy PRESENT NRG Mucus detection in urine sediment by light microscopy NEGATIVE NRG Complete urinalysis with reflex to culture NO NRG Hyaline casts detection in urine sediment by light microscopy 5-10 NRG Complete blood count (CBC) with automated white blood cell (WBC) differential - 12/08/16 05:45 Blood leukocytes automated count (number/volume) 8.0 10*3/ uL 4.3-11.0 Blood erythrocytes automated count (number/volume) 4.10 10*6 /uL 4.35-5.85 Venous blood hemoglobin measurement (mass/volume) 11.4 g/dL 13.3-17.7 Blood hematocrit (volume fraction) 35 % 40-54 Automated erythrocyte mean corpuscular volume 85 [foz_us] 80-99 Automated erythrocyte mean corpuscular hemoglobin (mass per erythrocyte) 28 pg 25-34 Automated erythrocyte mean corpuscular hemoglobin concentration measurement ( mass/volume) 33 g/dL 32-36 Automated erythrocyte distribution width ratio 17.6 % 10.0-14.5 Automated blood platelet count (count/volume) 221 10*3/uL 130-400 Automated blood platelet mean volume measurement 10.0 [foz_ us] 7.4-10.4 Automated blood neutrophils/100 leukocytes 90 % 42-75 Automated blood lymphocytes/100 leukocytes 5 % 12-44 Blood monocytes/100 leukocytes 4 % 0-12 Automated blood eosinophils/100 leukocytes 0 % 0-10 Automated blood basophils/100 leukocytes 0 % 0-10 Blood neutrophils automated count (number/volume) 7.2 10*3 1.8-7.8 Blood lymphocytes automated count (number/volume) 0.4 10*3 1.0-4.0 Blood monocytes automated count (number/volume) 0.4 10*3 0.0-1.0 Automated eosinophil count 0.0 10*3/uL 0.0-0.3 Automated blood basophil count (count/volume) 0.0 10*3/uL 0.0-0.1 Comprehensive metabolic panel - 12/08/16 05:45 Serum or plasma sodium measurement (moles/volume) 136 mmol/ L 135-145 Serum or plasma potassium measurement (moles/volume) 4.2 mmol/L 3.6-5.0 Serum or plasma chloride measurement (moles/volume) 103 mmol /L 98-107 Carbon dioxide 24 mmol/L 21-32 Serum or plasma anion gap determination (moles/volume) 9 mmol/L 5-14 Serum or plasma urea nitrogen measurement (mass/volume) 34 mg/dL 7-18 Serum or plasma creatinine measurement (mass/volume) 1.09 mg /dL 0.60-1.30 Serum or plasma urea nitrogen/creatinine mass ratio 31 NRG Serum or plasma creatinine measurement with calculation of estimated glomerular filtration rate > NRG Serum or plasma glucose measurement (mass/volume) 97 mg/dL 70-105 Serum or plasma calcium measurement (mass/volume) 8.2 mg/dL 8.5-10.1 Serum or plasma total bilirubin measurement (mass/volume) 0.6 mg/dL 0.1-1.0 Serum or plasma alkaline phosphatase measurement (enzymatic activity/volume) 83 U/L 40-136 Serum or plasma aspartate aminotransferase measurement (enzymatic activity/ volume) 34 U/L 5-34 Serum or plasma alanine aminotransferase measurement (enzymatic activity/volume ) 77 U/L 0-55 Serum or plasma protein measurement (mass/volume) 5.6 g/dL 6.4-8.2 Serum or plasma albumin measurement (mass/volume) 2.9 g/dL 3.2-4.5 Complete blood count (CBC) with automated white blood cell (WBC) differential - 12/09/16 04:35 Blood leukocytes automated count (number/volume) 11.4 10*3/ uL 4.3-11.0 Blood erythrocytes automated count (number/volume) 4.30 10*6 /uL 4.35-5.85 Venous blood hemoglobin measurement (mass/volume) 12.0 g/dL 13.3-17.7 Blood hematocrit (volume fraction) 36 % 40-54 Automated erythrocyte mean corpuscular volume 84 [foz_us] 80-99 Automated erythrocyte mean corpuscular hemoglobin (mass per erythrocyte) 28 pg 25-34 Automated erythrocyte mean corpuscular hemoglobin concentration measurement ( mass/volume) 33 g/dL 32-36 Automated erythrocyte distribution width ratio 18.0 % 10.0-14.5 Automated blood platelet count (count/volume) 286 10*3/uL 130-400 Automated blood platelet mean volume measurement 10.5 [foz_ us] 7.4-10.4 Automated blood neutrophils/100 leukocytes 89 % 42-75 Automated blood lymphocytes/100 leukocytes 3 % 12-44 Blood monocytes/100 leukocytes 8 % 0-12 Automated blood eosinophils/100 leukocytes 0 % 0-10 Automated blood basophils/100 leukocytes 0 % 0-10 Blood neutrophils automated count (number/volume) 10.1 10*3 1.8-7.8 Blood lymphocytes automated count (number/volume) 0.3 10*3 1.0-4.0 Blood monocytes automated count (number/volume) 0.9 10*3 0.0-1.0 Automated eosinophil count 0.0 10*3/uL 0.0-0.3 Automated blood basophil count (count/volume) 0.0 10*3/uL 0.0-0.1 Whole blood basic metabolic panel - 12/09/16 04:35 Serum or plasma sodium measurement (moles/volume) 135 mmol/ L 135-145 Serum or plasma potassium measurement (moles/volume) 4.6 mmol/L 3.6-5.0 Serum or plasma chloride measurement (moles/volume) 101 mmol /L 98-107 Carbon dioxide 24 mmol/L 21-32 Serum or plasma anion gap determination (moles/volume) 10 mmol/L 5-14 Serum or plasma urea nitrogen measurement (mass/volume) 39 mg/dL 7-18 Serum or plasma creatinine measurement (mass/volume) 1.17 mg /dL 0.60-1.30 Serum or plasma urea nitrogen/creatinine mass ratio 33 NRG Serum or plasma creatinine measurement with calculation of estimated glomerular filtration rate 59 NRG Serum or plasma glucose measurement (mass/volume) 133 mg/dL 70-105 Serum or plasma calcium measurement (mass/volume) 9.1 mg/dL 8.5-10.1 Magnesium - 12/09/16 04:35 Magnesium 2.4 mg/dL 1.8-2.4 Complete blood count (CBC) with automated white blood cell (WBC) differential - 12/11/16 06:19 Blood leukocytes automated count (number/volume) 10.7 10*3/ uL 4.3-11.0 Blood erythrocytes automated count (number/volume) 4.32 10*6 /uL 4.35-5.85 Venous blood hemoglobin measurement (mass/volume) 11.9 g/dL 13.3-17.7 Blood hematocrit (volume fraction) 36 % 40-54 Automated erythrocyte mean corpuscular volume 83 [foz_us] 80-99 Automated erythrocyte mean corpuscular hemoglobin (mass per erythrocyte) 28 pg 25-34 Automated erythrocyte mean corpuscular hemoglobin concentration measurement ( mass/volume) 33 g/dL 32-36 Automated erythrocyte distribution width ratio 18.5 % 10.0-14.5 Automated blood platelet count (count/volume) 319 10*3/uL 130-400 Automated blood platelet mean volume measurement 10.0 [foz_ us] 7.4-10.4 Automated blood neutrophils/100 leukocytes 92 % 42-75 Automated blood lymphocytes/100 leukocytes 2 % 12-44 Blood monocytes/100 leukocytes 7 % 0-12 Automated blood eosinophils/100 leukocytes 0 % 0-10 Automated blood basophils/100 leukocytes 0 % 0-10 Blood neutrophils automated count (number/volume) 9.8 10*3 1.8-7.8 Blood lymphocytes automated count (number/volume) 0.2 10*3 1.0-4.0 Blood monocytes automated count (number/volume) 0.7 10*3 0.0-1.0 Automated eosinophil count 0.0 10*3/uL 0.0-0.3 Automated blood basophil count (count/volume) 0.0 10*3/uL 0.0-0.1 Comprehensive metabolic panel - 12/11/16 06:19 Serum or plasma sodium measurement (moles/volume) 130 mmol/ L 135-145 Serum or plasma potassium measurement (moles/volume) 4.9 mmol/L 3.6-5.0 Serum or plasma chloride measurement (moles/volume) 98 mmol/ L 98-107 Carbon dioxide 24 mmol/L 21-32 Serum or plasma anion gap determination (moles/volume) 8 mmol/L 5-14 Serum or plasma urea nitrogen measurement (mass/volume) 51 mg/dL 7-18 Serum or plasma creatinine measurement (mass/volume) 0.97 mg /dL 0.60-1.30 Serum or plasma urea nitrogen/creatinine mass ratio 53 NRG Serum or plasma creatinine measurement with calculation of estimated glomerular filtration rate > NRG Serum or plasma glucose measurement (mass/volume) 120 mg/dL 70-105 Serum or plasma calcium measurement (mass/volume) 8.9 mg/dL 8.5-10.1 Serum or plasma total bilirubin measurement (mass/volume) 0.4 mg/dL 0.1-1.0 Serum or plasma alkaline phosphatase measurement (enzymatic activity/volume) 73 U/L 40-136 Serum or plasma aspartate aminotransferase measurement (enzymatic activity/ volume) 24 U/L 5-34 Serum or plasma alanine aminotransferase measurement (enzymatic activity/volume ) 64 U/L 0-55 Serum or plasma protein measurement (mass/volume) 5.8 g/dL 6.4-8.2 Serum or plasma albumin measurement (mass/volume) 3.1 g/dL 3.2-4.5 Complete blood count (CBC) with automated white blood cell (WBC) differential - 12/14/16 13:57 Blood leukocytes automated count (number/volume) 12.0 10*3/ uL 4.3-11.0 Blood erythrocytes automated count (number/volume) 4.67 10*6 /uL 4.35-5.85 Venous blood hemoglobin measurement (mass/volume) 13.0 g/dL 13.3-17.7 Blood hematocrit (volume fraction) 38 % 40-54 Automated erythrocyte mean corpuscular volume 82 [foz_us] 80-99 Automated erythrocyte mean corpuscular hemoglobin (mass per erythrocyte) 28 pg 25-34 Automated erythrocyte mean corpuscular hemoglobin concentration measurement ( mass/volume) 34 g/dL 32-36 Automated erythrocyte distribution width ratio 18.5 % 10.0-14.5 Automated blood platelet count (count/volume) 369 10*3/uL 130-400 Automated blood platelet mean volume measurement 9.7 [foz_us ] 7.4-10.4 Automated blood neutrophils/100 leukocytes 92 % 42-75 Automated blood lymphocytes/100 leukocytes 3 % 12-44 Blood monocytes/100 leukocytes 4 % 0-12 Automated blood eosinophils/100 leukocytes 0 % 0-10 Automated blood basophils/100 leukocytes 0 % 0-10 Blood neutrophils automated count (number/volume) 11.1 10*3 1.8-7.8 Blood lymphocytes automated count (number/volume) 0.4 10*3 1.0-4.0 Blood monocytes automated count (number/volume) 0.5 10*3 0.0-1.0 Automated eosinophil count 0.0 10*3/uL 0.0-0.3 Automated blood basophil count (count/volume) 0.0 10*3/uL 0.0-0.1 Blood manual differential performed detection - 12/14/16 13:57 Blood monocytes/100 leukocytes 6 % NRG Manual blood segmented neutrophils/100 leukocytes 89 % NRG Blood band neutrophils/100 leukocytes 5 % NRG Blood erythrocyte morphology finding identification NORMAL NRG Blood toxic granules detection by light microscopy 1+ NRG Blood dohle body detection by light microscopy SLIGHT NRG Blood hypersegmented neutrophils detection by light microscopy SLIGHT NRG Comprehensive metabolic panel - 12/14/16 13:57 Serum or plasma sodium measurement (moles/volume) 121 mmol/ L 135-145 Serum or plasma potassium measurement (moles/volume) 5.0 mmol/L 3.6-5.0 Serum or plasma chloride measurement (moles/volume) 92 mmol/ L 98-107 Carbon dioxide 19 mmol/L 21-32 Serum or plasma anion gap determination (moles/volume) 10 mmol/L 5-14 Serum or plasma urea nitrogen measurement (mass/volume) 50 mg/dL 7-18 Serum or plasma creatinine measurement (mass/volume) 1.08 mg /dL 0.60-1.30 Serum or plasma urea nitrogen/creatinine mass ratio 46 NRG Serum or plasma creatinine measurement with calculation of estimated glomerular filtration rate > NRG Serum or plasma glucose measurement (mass/volume) 142 mg/dL 70-105 Serum or plasma calcium measurement (mass/volume) 8.7 mg/dL 8.5-10.1 Serum or plasma total bilirubin measurement (mass/volume) 0.7 mg/dL 0.1-1.0 Serum or plasma alkaline phosphatase measurement (enzymatic activity/volume) 69 U/L 40-136 Serum or plasma aspartate aminotransferase measurement (enzymatic activity/ volume) 23 U/L 5-34 Serum or plasma alanine aminotransferase measurement (enzymatic activity/volume ) 47 U/L 0-55 Serum or plasma protein measurement (mass/volume) 5.9 g/dL 6.4-8.2 Serum or plasma albumin measurement (mass/volume) 3.1 g/dL 3.2-4.5 Whole blood basic metabolic panel - 12/15/16 05:36 Serum or plasma sodium measurement (moles/volume) 126 mmol/ L 135-145 Serum or plasma potassium measurement (moles/volume) 5.1 mmol/L 3.6-5.0 Serum or plasma chloride measurement (moles/volume) 98 mmol/ L 98-107 Carbon dioxide 20 mmol/L 21-32 Serum or plasma anion gap determination (moles/volume) 8 mmol/L 5-14 Serum or plasma urea nitrogen measurement (mass/volume) 45 mg/dL 7-18 Serum or plasma creatinine measurement (mass/volume) 0.98 mg /dL 0.60-1.30 Serum or plasma urea nitrogen/creatinine mass ratio 46 NRG Serum or plasma creatinine measurement with calculation of estimated glomerular filtration rate > NRG Serum or plasma glucose measurement (mass/volume) 98 mg/dL 70-105 Serum or plasma calcium measurement (mass/volume) 8.2 mg/dL 8.5-10.1 Whole blood basic metabolic panel - 12/16/16 06:35 Serum or plasma sodium measurement (moles/volume) 128 mmol/ L 135-145 Serum or plasma potassium measurement (moles/volume) 4.9 mmol/L 3.6-5.0 Serum or plasma chloride measurement (moles/volume) 102 mmol /L 98-107 Carbon dioxide 18 mmol/L 21-32 Serum or plasma anion gap determination (moles/volume) 8 mmol/L 5-14 Serum or plasma urea nitrogen measurement (mass/volume) 34 mg/dL 7-18 Serum or plasma creatinine measurement (mass/volume) 0.86 mg /dL 0.60-1.30 Serum or plasma urea nitrogen/creatinine mass ratio 40 NRG Serum or plasma creatinine measurement with calculation of estimated glomerular filtration rate > NRG Serum or plasma glucose measurement (mass/volume) 89 mg/dL 70-105 Serum or plasma calcium measurement (mass/volume) 8.3 mg/dL 8.5-10.1 Encounters ACCT No. Visit Date/Time Discharge Status Pt. 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,RADIATION THERAPY [id number] 12/08/2016 17:10:00 2016 15:50:00 DIS Inpatient ANDRZEJ TEE [facility] 4TH WEAKNESS,CLOSED HEAD FRACTURE,METASTATIC CA [id number] 12/05/2016 14:09:00 2016 00:01:00 DIS Outpatient ANDRZEJ TEE [facility] ONC [id number] 11/07/2016 14:47:00 2016 15:18:00 DIS Inpatient NEY WADE MD [facility] 4TH ABDOMINAL PAIN, PROBABLE CANCER [id number] 09/03/2016 13:49:00 2016 00:01:00 DIS Outpatient ANDRZEJ TEE [facility] ONC [id number] 06/06/2016 12:52:00 2015 10:06:00 DIS Outpatient ANDRZEJ TEE [facility] ONC [id number] 04/14/2016 08:08:00 2015 12:10:00 DIS [facility] [id number] 04/11/2016 05:33:00 2015 12:45:00 DIS Outpatient BRITTNEY STUART DO [facility] PREOP LUNG CANCER [id number] 03/31/2016 07:53:00 2015 13:30:00 DIS Outpatient PETER NIELSON DO [facility] LUNG MASS [id number] 03/28/2016 12:30:00 2015 13:02:00 DIS Outpatient PETER NIELSON DO [facility] PREOP LUNG MASS [id number] 12/26/2015 10:23:00 2015 10:40:00 DIS Outpatient PETER NIELSON DO [facility] SLEEP OBSERVED APNEA, SNORING, GASPING IN SLEEP, EDS [id number] 12/10/2016 00:16:00 PEN Preadmit ANDRZEJ TEE [facility] ONC [id number] 11/27/2016 09:27:00 ACT Outpatient SAMMY RICHARDS [employer]ESTH[facility]IOLOG[facility] RAD DIZZINESS,LUNG CA [id number] 2016 11:17:00 ACT Outpatient ANDRZEJ TEE [facility] RAD LUNG CANCER [id number] 09/30/2016 11:31:00 ACT Outpatient SAMMY RICHARDS [employer]ESTH[employer]IOLOG[facility] CARD LUNG CANCER [id number] 09/03/2016 15:00:00 ACT Outpatient SAMMY RICHARDS [employer]ESTHESIOLOG[employer] [facility]IT[facility] RAD [id number] 06/09/2016 13:33:00 ACT Outpatient SAMMY RICHARDS ANESTHESIOLOGIST [employer] [facility]IT[facility] C[facility] RAD DIZZINESS [id number] 04/30/2016 12:31:00 ACT Outpatient SAMMY RICHARDS ANESTHESIOLOGIST AND CRITICAL CARE [facility] ONC [id number] 04/08/2016 09:58:00 ACT Outpatient PETER NIELSON DO [facility] RAD DYSPNEA,COPD,LUNG MASS [id number] 03/18/2016 09:28:00 ACT Outpatient FRANTZ DUBOIS MD [facility] CARD PAF,CAD,HTN,MIXED HLP [id number] 03/18/2016 08:16:00 ACT Outpatient FRANTZ DUBOIS MD [facility] CARD PAF,CAD,HTN,MIXED HLP [id number] 01/24/2016 12:01:00 ACT Outpatient PETER NIELSON DO [facility] RAD COPD,TOBACCO USE [id number] 01/07/2016 12:30:00 ACT Outpatient PETER NIELSON DO [facility] RT COPD,CAD
--- OUTSIDE RECORDS SUMMARY | 2016-12-30 12:19 | XMS REPORT | Continuity of Care Document ---
Author Author [facility] Organization [facility] Address Unknown Phone Unavailable Allergies Active Description Code Type Severity Reaction Onset Reported/Identified Relationship to Patient Clinical Status Yes Iodine and Iodide Containing Produc [id number] Drug Allergy Unknown RASH 03/31/2016 Yes Penicillins [id number] Drug Allergy Unknown HIVES 03/31/2016 Medications Problems Date Dx Coded Attending Type Code Diagnosis Diagnosed By 12/26/2015 PETER NIELSON DO Ot G47.33 OBSTRUCTIVE SLEEP APNEA (ADULT) (PEDIATR 01/09/2016 PETER NIELSON DO Ot I25.10 ATHSCL HEART DISEASE OF [place] CORONARY 01/09/2016 PETER NIELSON DO Ot J44.9 CHRONIC OBSTRUCTIVE PULMONARY DISEASE, U 01/09/2016 PETER NIELSON DO Ot Z72.0 TOBACCO USE 01/09/2016 PETER NIELSON DO Ot I25.10 ATHSCL HEART DISEASE OF [place] CORONARY 01/09/2016 PETER NIELSON DO Ot J44.9 [...] DO Ot I25.10 ATHSCL HEART DISEASE OF [place] CORONARY 01/29/2016 PETER NIELSON DO Ot J44.9 CHRONIC OBSTRUCTIVE PULMONARY DISEASE, U 01/29/2016 PETER NIELSON DO Ot Z72.0 TOBACCO USE 02/06/2016 PETER NIELSON DO Ot I25.10 ATHSCL HEART DISEASE OF [place] CORONARY 02/06/2016 PETER NIELSON DO Ot J44.9 CHRONIC OBSTRUCTIVE PULMONARY DISEASE, U 02/06/2016 PETER NIELSON DO Ot Z72.0 TOBACCO USE 02/15/2016 PETER [...] PAROXYSMAL ATRIAL FIBRILLATION 03/18/2016 FRANTZ DUBOIS MD J Ot I48.0 PAROXYSMAL ATRIAL FIBRILLATION 03/19/2016 FRANTZ DUBOIS MD Ot I48.0 PAROXYSMAL ATRIAL FIBRILLATION 03/19/2016 FRANTZ DUBOIS MD Ot E78.2 MIXED HYPERLIPIDEMIA 03/19/2016 FRANTZ DUBOIS MD Ot I10 ESSENTIAL (PRIMARY) HYPERTENSION 03/19/2016 FRANTZ DUBOIS MD Ot I25.10 ATHSCL HEART DISEASE OF [place] CORONARY 03/19/2016 FRANTZ DUBOIS MD Ot I48.0 [...] M Ot I25.10 ATHSCL HEART DISEASE OF [place] CORONARY 03/31/2016 PETER NIELSON DO M Ot [...] M Ot I25.10 ATHSCL HEART DISEASE OF [place] CORONARY 04/03/2016 PETER NIELSON DO M Ot I48.0 PAROXYSMAL ATRIAL FIBRILLATION 04/03/2016 PETER NIELSON DO Ot J44.9 CHRONIC OBSTRUCTIVE PULMONARY DISEASE, U 04/03/2016 PETER NIELSON DO M Ot R91.8 OTHER NONSPECIFIC ABNORMAL FINDING OF [place] 04/07/2016 EPTER NIELSON DO M Ot E78.2 MIXED HYPERLIPIDEMIA 04/07/2016 PETER NIELSON DO M Ot F17.200 NICOTINE DEPENDENCE, UNSPECIFIED, UNCOMP 04/07/2016 FRANK NIELSON DOSON M Ot I10 ESSENTIAL (PRIMARY) HYPERTENSION 04/07/2016 PETER NIELSON DO M Ot I25.10 ATHSCL HEART DISEASE OF [place] CORONARY 04/07/2016 PETER NIELSON DO M Ot I48.0 PAROXYSMAL ATRIAL FIBRILLATION 04/07/2016 NAGA TORRES PETER Mcwilliams Ot J44.9 CHRONIC OBSTRUCTIVE PULMONARY DISEASE, U 04/07/2016 PETER NIELSON DO M Ot R91.8 OTHER NONSPECIFIC ABNORMAL FINDING OF [place] 04/08/2016 PETER NIELSON DO M Ot R91.8 OTHER NONSPECIFIC ABNORMAL FINDING OF [place] 04/09/2016 PETER NIELSON DO M Ot R91.8 [...] MD Ot I25.10 ATHSCL HEART DISEASE OF [place] CORONARY 04/17/2016 FRANTZ DUBOIS MD Ot I48.0 [...] MD Ot I25.10 ATHSCL HEART DISEASE OF [place] CORONARY 04/25/2016 FRANTZ DUBOIS MD Ot I48.0 PAROXYSMAL ATRIAL FIBRILLATION 04/28/2016 FRANTZ DUBOIS MD Ot E78.2 MIXED HYPERLIPIDEMIA 04/28/2016 FRANTZ DUBOIS MD Ot I10 ESSENTIAL (PRIMARY) HYPERTENSION 04/28/2016 FRANTZ DUBOIS MD Ot I25.10 ATHSCL HEART DISEASE OF [place] CORONARY 04/28/2016 FRANTZ DUBOIS MD Ot I48.0 PAROXYSMAL ATRIAL FIBRILLATION 05/01/2016 SAMMY RICHARDS Ot 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 05/01/2016 SAMMY RICHARDS STEWARD/STEWARDESS ECONOMY CLASS Ot I10 ESSENTIAL (PRIMARY) HYPERTENSION 05/01/2016 SAMMY RICHARDS STEWARD/STEWARDESS ECONOMY CLASS Ot I25.10 ATHSCL HEART DISEASE OF [place] CORONARY 05/01/2016 SAMMY RICHARDS STEWARD/STEWARDESS ECONOMY CLASS Ot J44.9 CHRONIC OBSTRUCTIVE PULMONARY DISEASE, U 05/01/2016 SAMMY RICHARDS STEWARD/STEWARDESS ECONOMY CLASS Ot Z79.899 OTHER MESSAGE BROKER DEVELOPER (CURRENT) DRUG THERAPY 05/02/2016 ANDRZEJ TEE Ot 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 05/02/2016 ANDRZEJ TEE Ot I10 ESSENTIAL (PRIMARY) HYPERTENSION 05/02/2016 ANDRZEJ TEE Ot I25.10 ATHSCL HEART DISEASE OF [place] CORONARY 05/02/2016 ANDRZEJ TEE Ot J44.9 CHRONIC OBSTRUCTIVE PULMONARY DISEASE, U 05/02/2016 ANDRZEJ TEE Ot Z79.899 OTHER CORRECTION (CURRENT) DRUG THERAPY 05/16/2016 PETER NIELSON DO Ot J44.9 CHRONIC OBSTRUCTIVE PULMONARY DISEASE, U 05/16/2016 PETER NIELSON DO Ot R91.8 OTHER NONSPECIFIC ABNORMAL FINDING OF [place] 05/19/2016 FRANTZ DUBOIS MD Ot E78.2 MIXED HYPERLIPIDEMIA 05/19/2016 FRANTZ DUBOIS MD Ot I10 ESSENTIAL (PRIMARY) HYPERTENSION 05/19/2016 FRANTZ DUBOIS MD Ot I25.10 ATHSCL HEART DISEASE OF [place] CORONARY 05/19/2016 FRANTZ DUBOIS MD Ot I48.0 PAROXYSMAL ATRIAL FIBRILLATION 05/21/2016 SAMMY RICHARDS S STEWARD/STEWARDESS ECONOMY CLASS Ot 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 05/21/2016 SAMMY RICHARDS STEWARD/STEWARDESS ECONOMY CLASS Ot I10 ESSENTIAL (PRIMARY) HYPERTENSION 05/21/2016 SAMMY RICHARDS STEWARD/STEWARDESS ECONOMY CLASS Ot I25.10 ATHSCL HEART DISEASE OF [place] CORONARY 05/21/2016 SAMMY RICHARDSP Ot J44.9 CHRONIC OBSTRUCTIVE PULMONARY DISEASE, U 05/21/2016 SAMMY RICHARDS S STEWARD/STEWARDESS ECONOMY CLASS Ot Z79.899 OTHER CORRECTION (CURRENT) DRUG THERAPY 05/23/2016 FRANTZ DUBOIS MD Ot E78.2 MIXED HYPERLIPIDEMIA 05/23/2016 FRANTZ DUBOIS MD Ot I10 ESSENTIAL (PRIMARY) HYPERTENSION 05/23/2016 FRANTZ DUBOIS MD Ot I25.10 ATHSCL HEART DISEASE OF [place] CORONARY 05/23/2016 FRANTZ DUBOIS MD Ot I48.0 PAROXYSMAL ATRIAL FIBRILLATION 05/23/2016 PETER NIELSON DO Ot J44.9 CHRONIC OBSTRUCTIVE PULMONARY DISEASE, U 05/23/2016 PETER NIELSON DO Ot R91.8 OTHER NONSPECIFIC ABNORMAL FINDING OF [place] 05/28/2016 SAMMY RICHARDS S STEWARD/STEWARDESS ECONOMY CLASS Ot 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 05/28/2016 SAMMY RICHARDS S STEWARD/STEWARDESS ECONOMY CLASS Ot I10 ESSENTIAL (PRIMARY) HYPERTENSION 05/28/2016 SAMMY RICHARDS S STEWARD/STEWARDESS ECONOMY CLASS Ot I25.10 ATHSCL HEART DISEASE OF [place] CORONARY 05/28/2016 SAMMY RICHARDS S STEWARD/STEWARDESS ECONOMY CLASS Ot J44.9 CHRONIC OBSTRUCTIVE PULMONARY DISEASE, U 05/28/2016 SAMMY RICHARDS STEWARD/STEWARDESS ECONOMY CLASS Ot Z79.899 OTHER MESSAGE BROKER DEVELOPER (CURRENT) DRUG THERAPY 06/02/2016 NAYANDRZEJ VALLEJO N Ot 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 06/02/2016 ANDRZEJ TEE N Ot I10 ESSENTIAL (PRIMARY) HYPERTENSION 06/02/2016 ANDRZEJ TEE N Ot I25.10 ATHSCL HEART DISEASE OF [place] CORONARY 06/02/2016 ANDRZEJ TEE N Ot J44.9 CHRONIC OBSTRUCTIVE PULMONARY DISEASE, U 06/02/2016 ANDRZEJ TEE N Ot Z79.899 OTHER MESSAGE BROKER DEVELOPER (CURRENT) DRUG THERAPY 06/09/2016 ANDRZEJ TEE N Ot 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 06/09/2016 ANDRZEJ TEE N Ot I10 ESSENTIAL (PRIMARY) HYPERTENSION 06/09/2016 ANDRZEJ TEE N Ot I25.10 ATHSCL HEART DISEASE OF [place] CORONARY 06/09/2016 ANDRZEJ TEE N Ot J44.9 CHRONIC OBSTRUCTIVE PULMONARY DISEASE, U 06/09/2016 ANDRZEJ TEE N Ot Z51.0 ENCOUNTER FOR ANTINEOPLASTIC RADIATION T 06/09/2016 ANDRZEJ TEE N Ot Z51.11 ENCOUNTER FOR ANTINEOPLASTIC CHEMOTHERAP 06/09/2016 ANDRZEJ TEE N Ot Z79.899 OTHER MESSAGE BROKER DEVELOPER (CURRENT) DRUG THERAPY 06/10/2016 ANDRZJE TEE N Ot 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 06/10/2016 ANDRZEJ TEE N Ot I10 ESSENTIAL (PRIMARY) HYPERTENSION 06/10/2016 ANDRZEJ TEE N Ot I25.10 ATHSCL HEART DISEASE OF [place] CORONARY 06/10/2016 ANDRZEJ TEE N Ot J44.9 CHRONIC OBSTRUCTIVE PULMONARY DISEASE, U 06/10/2016 ANDRZEJ TEE N Ot Z51.11 ENCOUNTER FOR ANTINEOPLASTIC CHEMOTHERAP 06/10/2016 ANDRZEJ TEE N Ot Z79.899 OTHER MESSAGE BROKER DEVELOPER (CURRENT) DRUG THERAPY 06/11/2016 SAMMY RICHARDS STEWARD/STEWARDESS ECONOMY CLASS Ot R42 DIZZINESS AND GIDDINESS 06/19/2016 SAMMY RICHARDS STEWARD/STEWARDESS ECONOMY CLASS Ot R42 DIZZINESS AND GIDDINESS 06/19/2016 SAMMY RICHARDS STEWARD/STEWARDESS ECONOMY CLASS Ot R42 DIZZINESS AND GIDDINESS 06/20/2016 SAMMY RICHARDS STEWARD/STEWARDESS ECONOMY CLASS Ot R42 DIZZINESS AND GIDDINESS 07/02/2016 RICHARDSSAMMY Drake STEWARD/STEWARDESS ECONOMY CLASS Ot R42 DIZZINESS AND GIDDINESS 07/03/2016 RICHARDSSAMMY Drake STEWARD/STEWARDESS ECONOMY CLASS Ot R42 DIZZINESS AND GIDDINESS 07/03/2016 SAMMY RICHARDS STEWARD/STEWARDESS ECONOMY CLASS Ot R42 DIZZINESS AND GIDDINESS 07/03/2016 RICHARDSSAMMY Drake STEWARD/STEWARDESS ECONOMY CLASS Ot R42 DIZZINESS AND GIDDINESS 07/09/2016 RICHARDSSAMMY Drake STEWARD/STEWARDESS ECONOMY CLASS Ot R42 DIZZINESS AND GIDDINESS 08/04/2016 ANDRZEJ TEE N Ot 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 08/04/2016 NAYANDRZEJ VALLEJO N Ot I10 ESSENTIAL (PRIMARY) HYPERTENSION 08/04/2016 NAY ANDRZEJ N Ot I25.10 ATHSCL HEART DISEASE OF [place] CORONARY 08/04/2016 NAY, ANDRZEJ N Ot J44.9 CHRONIC OBSTRUCTIVE PULMONARY DISEASE, U 08/04/2016 NAY, ANDRZEJ N Ot Z51.11 ENCOUNTER FOR ANTINEOPLASTIC CHEMOTHERAP 08/04/2016 NAYJULES VALLEJOEDDIE N Ot Z79.899 OTHER CORRECTION (CURRENT) DRUG THERAPY 08/05/2016 ANDRZEJ TEE N Ot 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 08/05/2016 ANDRZEJ TEE N Ot I10 ESSENTIAL (PRIMARY) HYPERTENSION 08/05/2016 JULES TEEEDDIE N Ot I25.10 ATHSCL HEART DISEASE OF [place] CORONARY 08/05/2016 NAY ANDRZEJ N Ot J44.9 CHRONIC OBSTRUCTIVE PULMONARY DISEASE, U 08/05/2016 NAY ANDRZEJ N Ot Z51.11 ENCOUNTER FOR ANTINEOPLASTIC CHEMOTHERAP 08/05/2016 JULES TEEEDDIE N Ot Z79.899 OTHER CORRECTION (CURRENT) DRUG THERAPY 08/06/2016 ANDRZEJ TEE N Ot 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 08/06/2016 NAY ANDRZEJ N Ot I10 ESSENTIAL (PRIMARY) HYPERTENSION 08/06/2016 NAY, ANDRZEJ N Ot I25.10 ATHSCL HEART DISEASE OF [place] CORONARY 08/06/2016 NAY, ANDRZEJ N Ot J44.9 CHRONIC OBSTRUCTIVE PULMONARY DISEASE, U 08/06/2016 NAY, ANDRZEJ N Ot Z51.11 ENCOUNTER FOR ANTINEOPLASTIC CHEMOTHERAP 08/06/2016 NAY JULESAN N Ot Z79.899 OTHER CORRECTION (CURRENT) DRUG THERAPY 09/04/2016 SAMMY RICHARDS STEWARD/STEWARDESS ECONOMY CLASS Ot C34.11 MALIGNANT NEOPLASM OF UPPER LOBE, RIGHT 09/04/2016 SAMMY RICHARDS STEWARD/STEWARDESS ECONOMY CLASS Ot R06.00 DYSPNEA, UNSPECIFIED 09/07/2016 NAY, ANDRZEJ N Ot C34.11 MALIGNANT NEOPLASM OF UPPER LOBE, RIGHT 09/07/2016 NAY, ANDRZEJ N Ot 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 09/07/2016 NAY, ANDRZEJ N Ot I10 ESSENTIAL (PRIMARY) HYPERTENSION 09/07/2016 NAY BOBAN N Ot I25.10 ATHSCL HEART DISEASE OF [place] CORONARY 09/07/2016 NAYANDRZEJ N Ot J44.9 CHRONIC OBSTRUCTIVE PULMONARY DISEASE, U 09/07/2016 NAY ANDRZEJ N Ot Z23 ENCOUNTER FOR IMMUNIZATION 09/07/2016 NAYANDRZEJ N Ot Z51.0 ENCOUNTER FOR ANTINEOPLASTIC RADIATION T 09/07/2016 NAYANDRZEJ N Ot Z51.11 ENCOUNTER FOR ANTINEOPLASTIC CHEMOTHERAP 09/07/2016 NAY JULESAN N Ot Z79.899 OTHER MESSAGE BROKER DEVELOPER (CURRENT) DRUG THERAPY 09/08/2016 NAY ANDRZEJ N Ot C34.11 MALIGNANT NEOPLASM OF UPPER LOBE, RIGHT 09/08/2016 NAY BOBEDDIE N Ot I10 ESSENTIAL (PRIMARY) HYPERTENSION 09/08/2016 NAYANDRZEJ N Ot I25.10 ATHSCL HEART DISEASE OF [place] CORONARY 09/08/2016 NAYANDRZEJ N Ot J44.9 CHRONIC OBSTRUCTIVE PULMONARY DISEASE, U 09/08/2016 NAY BOBAN N Ot Z23 ENCOUNTER FOR IMMUNIZATION 09/08/2016 NAY BOBAN N Ot Z51.0 ENCOUNTER FOR ANTINEOPLASTIC RADIATION T 09/08/2016 NAYJULESAN N Ot Z51.11 ENCOUNTER FOR ANTINEOPLASTIC CHEMOTHERAP 09/08/2016 NAY BOBAN N Ot Z79.899 OTHER CORRECTION (CURRENT) DRUG THERAPY 09/09/2016 SAMMY RICHARDS STEWARD/STEWARDESS ECONOMY CLASS Ot C34.11 MALIGNANT NEOPLASM OF UPPER LOBE, RIGHT 09/09/2016 SAMMY RICHARDS STEWARD/STEWARDESS ECONOMY CLASS Ot R06.00 DYSPNEA, UNSPECIFIED 09/09/2016 SAMMY RICHARDS STEWARD/STEWARDESS ECONOMY CLASS Ot C34.11 MALIGNANT NEOPLASM OF UPPER LOBE, RIGHT 09/09/2016 SAMMY RICHARDSP Ot R06.00 DYSPNEA, UNSPECIFIED 09/10/2016 SAMMY RICHARDS STEWARD/STEWARDESS ECONOMY CLASS Ot C34.11 MALIGNANT NEOPLASM OF UPPER LOBE, RIGHT 09/10/2016 SAMMY RICHARDSP Ot R06.00 DYSPNEA, UNSPECIFIED 09/10/2016 NAY, ANDRZEJ Gilman Ot 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 09/10/2016 ANDRZEJ TEE Ot I10 ESSENTIAL (PRIMARY) HYPERTENSION 09/10/2016 ANDRZEJ TEE Ot I25.10 ATHSCL HEART DISEASE OF [place] CORONARY 09/10/2016 ANDRZEJ TEE Ot J44.9 CHRONIC OBSTRUCTIVE PULMONARY DISEASE, U 09/10/2016 ANDRZEJ TEE Ot Z23 ENCOUNTER FOR IMMUNIZATION 09/10/2016 ANDRZEJ TEE Ot Z51.11 ENCOUNTER FOR ANTINEOPLASTIC CHEMOTHERAP 09/10/2016 ANDRZEJ TEE Ot Z79.899 OTHER CORRECTION (CURRENT) DRUG THERAPY 09/11/2016 SAMMY RICHARDSP Ot C34.11 MALIGNANT NEOPLASM OF UPPER LOBE, RIGHT 09/11/2016 SAMMY RICHARDSP Ot R06.00 DYSPNEA, UNSPECIFIED 09/26/2016 SAMMY RICHARDS STEWARD/STEWARDESS ECONOMY CLASS Ot C34.11 MALIGNANT NEOPLASM OF UPPER LOBE, RIGHT 09/26/2016 SAMMY RICHARDS STEWARD/STEWARDESS ECONOMY CLASS Ot R06.00 DYSPNEA, UNSPECIFIED 09/30/2016 PETER NIELSON DO Ot I25.10 ATHSCL HEART DISEASE OF [place] CORONARY 09/30/2016 PETER NIELSON DO Ot J44.9 [...] MD Ot I25.10 ATHSCL HEART DISEASE OF [place] CORONARY 09/30/2016 SILVINO KUMARI, FRANTZ Bird Ot I48.0 PAROXYSMAL ATRIAL FIBRILLATION 09/30/2016 SILVINO KUMARI, FRANTZ Bird Ot E78.2 MIXED HYPERLIPIDEMIA 09/30/2016 SILVINO KUMARI, FRANTZ Bird Ot I10 ESSENTIAL (PRIMARY) HYPERTENSION 09/30/2016 SILVINO KUMARI, FRANTZ Bird Ot I25.10 ATHSCL HEART DISEASE OF [place] CORONARY 09/30/2016 SILVINO KUMARI, FRANTZ Bird Ot I48.0 PAROXYSMAL ATRIAL FIBRILLATION 09/30/2016 PETER NIELSON DO Ot J44.9 CHRONIC OBSTRUCTIVE PULMONARY DISEASE, U 09/30/2016 EPTER NIELSON DO Ot R91.8 OTHER NONSPECIFIC ABNORMAL FINDING OF [place] 09/30/2016 SAMMY RICHARDS STEWARD/STEWARDESS ECONOMY CLASS Ot 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 09/30/2016 SAMMY RICHARDS Ot I10 ESSENTIAL (PRIMARY) HYPERTENSION 09/30/2016 SAMMY RICHARDS Ot I25.10 ATHSCL HEART DISEASE OF [place] CORONARY 09/30/2016 SAMMY RICHARDS STEWARD/STEWARDESS ECONOMY CLASS Ot J44.9 CHRONIC OBSTRUCTIVE PULMONARY DISEASE, U 09/30/2016 SAMMY RICHARDSP Ot Z79.899 OTHER MESSAGE BROKER DEVELOPER (CURRENT) DRUG THERAPY 09/30/2016 SAMMY RICHARDSP Ot R42 DIZZINESS AND GIDDINESS 09/30/2016 SAMMY RICHARDS STEWARD/STEWARDESS ECONOMY CLASS Ot C34.11 MALIGNANT NEOPLASM OF UPPER LOBE, RIGHT 09/30/2016 SAMMY RICHARDS Ot R06.00 DYSPNEA, UNSPECIFIED 09/30/2016 ANDRZEJ TEE Ot 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 09/30/2016 ANDRZEJ TEE Ot I10 ESSENTIAL (PRIMARY) HYPERTENSION 09/30/2016 ANDRZEJ TEE Ot I25.10 ATHSCL HEART DISEASE OF [place] CORONARY 09/30/2016 ANDRZEJ TEE Ot J44.9 CHRONIC OBSTRUCTIVE PULMONARY DISEASE, U 09/30/2016 ANDRZEJ TEE Ot Z23 ENCOUNTER FOR IMMUNIZATION 09/30/2016 ANDRZEJ TEE Ot Z51.11 ENCOUNTER FOR ANTINEOPLASTIC CHEMOTHERAP 09/30/2016 ANDRZEJ TEE Ot Z79.899 OTHER CORRECTION (CURRENT) DRUG THERAPY 09/30/2016 PETER NIELSON DO Ot I25.10 ATHSCL HEART DISEASE OF [place] CORONARY 09/30/2016 PETER NIELSON DO Ot J44.9 [...] MD Ot I25.10 ATHSCL HEART DISEASE OF [place] CORONARY 09/30/2016 FRANTZ DUBOIS MD J Ot I48.0 PAROXYSMAL ATRIAL FIBRILLATION 09/30/2016 FRANTZ DUBOIS MD J Ot E78.2 MIXED HYPERLIPIDEMIA 09/30/2016 FRANTZ DUBOIS MD J Ot I10 ESSENTIAL (PRIMARY) HYPERTENSION 09/30/2016 FRANTZ DUBOIS MD J Ot I25.10 ATHSCL HEART DISEASE OF [place] CORONARY 09/30/2016 FRANTZ DUBOIS MD J Ot I48.0 PAROXYSMAL ATRIAL FIBRILLATION 09/30/2016 PETER NIELSON DO Ot J44.9 CHRONIC OBSTRUCTIVE PULMONARY DISEASE, U 09/30/2016 PETER NIELSON DO Ot R91.8 OTHER NONSPECIFIC ABNORMAL FINDING OF [place] 09/30/2016 SAMMY RICHARDSP Ot 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 09/30/2016 SAMMY RICHARDSP Ot I10 ESSENTIAL (PRIMARY) HYPERTENSION 09/30/2016 SAMMY RICHARDSP Ot I25.10 ATHSCL HEART DISEASE OF [place] CORONARY 09/30/2016 SAMMY RICHARDS Ot J44.9 CHRONIC OBSTRUCTIVE PULMONARY DISEASE, U 09/30/2016 SAMMY RICHARDSP Ot Z79.899 OTHER CORRECTION (CURRENT) DRUG THERAPY 09/30/2016 SAMMY RICHARDSP Ot R42 DIZZINESS AND GIDDINESS 09/30/2016 SAMMY RICHARDSP Ot C34.11 MALIGNANT NEOPLASM OF UPPER LOBE, RIGHT 09/30/2016 SAMMY RICHARDS STEWARD/STEWARDESS ECONOMY CLASS Ot R06.00 DYSPNEA, UNSPECIFIED 09/30/2016 NAY ANDRZEJ N Ot 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 09/30/2016 NAY ANDRZEJ N Ot I10 ESSENTIAL (PRIMARY) HYPERTENSION 09/30/2016 NAY ANDRZEJ N Ot I25.10 ATHSCL HEART DISEASE OF [place] CORONARY 09/30/2016 NAY, ANDRZEJ Gilman Ot J44.9 CHRONIC OBSTRUCTIVE PULMONARY DISEASE, U 09/30/2016 NAY ANDRZEJ N Ot Z23 ENCOUNTER FOR IMMUNIZATION 09/30/2016 NAYANDRZEJ N Ot Z51.11 ENCOUNTER FOR ANTINEOPLASTIC CHEMOTHERAP 09/30/2016 NAYANDRZEJ N Ot Z79.899 OTHER MESSAGE BROKER DEVELOPER (CURRENT) DRUG THERAPY 10/01/2016 SAMMY RICHARDS STEWARD/STEWARDESS ECONOMY CLASS Ot C34.11 MALIGNANT NEOPLASM OF UPPER LOBE, RIGHT 10/01/2016 SAMMY RICHARDS STEWARD/STEWARDESS ECONOMY CLASS Ot C34.11 MALIGNANT NEOPLASM OF UPPER LOBE, RIGHT 10/01/2016 SAMMY RICHARDS STEWARD/STEWARDESS ECONOMY CLASS Ot R06.00 DYSPNEA, UNSPECIFIED 10/15/2016 NAY ANDRZEJ N Ot 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 10/15/2016 NAY, ANDRZEJ N Ot I10 ESSENTIAL (PRIMARY) HYPERTENSION 10/15/2016 NAYANDRZEJ N Ot I25.10 ATHSCL HEART DISEASE OF [place] CORONARY 10/15/2016 NAYANDRZEJ Ot J44.9 CHRONIC OBSTRUCTIVE PULMONARY DISEASE, U 10/15/2016 ANDRZEJ TEE N Ot Z23 ENCOUNTER FOR IMMUNIZATION 10/15/2016 NAYANDRZEJ N Ot Z51.11 ENCOUNTER FOR ANTINEOPLASTIC CHEMOTHERAP 10/15/2016 NAYANDRZEJ N Ot Z79.899 OTHER CORRECTION (CURRENT) DRUG THERAPY 10/18/2016 NAYANDRZEJ N Ot C34.11 MALIGNANT NEOPLASM OF UPPER LOBE, RIGHT 10/18/2016 NAY ANDRZEJ N Ot I10 ESSENTIAL (PRIMARY) HYPERTENSION 10/18/2016 ANDRZEJ TEE N Ot I25.10 ATHSCL HEART DISEASE OF [place] CORONARY 10/18/2016 ANDRZEJ TEE N Ot J44.9 CHRONIC OBSTRUCTIVE PULMONARY DISEASE, U 10/18/2016 NAY, BOBAN N Ot Z23 ENCOUNTER FOR IMMUNIZATION 10/18/2016 ANDRZEJ TEE Ot Z51.0 ENCOUNTER FOR ANTINEOPLASTIC RADIATION T 10/18/2016 ANDRZEJ TEE Ot Z51.11 ENCOUNTER FOR ANTINEOPLASTIC CHEMOTHERAP 10/18/2016 ANDRZEJ TEE Ot Z79.899 OTHER MESSAGE BROKER DEVELOPER (CURRENT) DRUG THERAPY 10/28/2016 SAMMY RICHARDS STEWARD/STEWARDESS ECONOMY CLASS Ot C34.11 MALIGNANT NEOPLASM OF UPPER LOBE, RIGHT 10/30/2016 SAMMY RICHARDS STEWARD/STEWARDESS ECONOMY CLASS Ot C34.11 MALIGNANT NEOPLASM OF UPPER LOBE, RIGHT 11/10/2016 NEY WADE MD Ot 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 11/10/2016 ENY WADE MD Ot C77.1 SECONDARY AND UNSP [...] CACHEXIA 11/10/2016 NEY WADE MD Ot Z79.01 MESSAGE BROKER DEVELOPER (CURRENT) USE OF ANTICOAGULANT 11/10/2016 NEY WADE [...] TEE Ot I25.10 ATHSCL HEART DISEASE OF [place] CORONARY 11/17/2016 ANDRZEJ TEE N Ot J44.9 CHRONIC OBSTRUCTIVE PULMONARY DISEASE, U 11/17/2016 NAYANDRZEJ VALLEJO N Ot Z23 ENCOUNTER FOR IMMUNIZATION 11/17/2016 ANDRZEJ TEE N Ot Z51.11 ENCOUNTER FOR ANTINEOPLASTIC CHEMOTHERAP 11/17/2016 ANDRZEJ TEE N Ot Z79.899 OTHER MESSAGE BROKER DEVELOPER (CURRENT) DRUG THERAPY 11/21/2016 NAY JULESAN N Ot 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 11/21/2016 NAY BOBEDDIE N Ot I10 ESSENTIAL (PRIMARY) HYPERTENSION 11/21/2016 NAY JULESAN N Ot I25.10 ATHSCL HEART DISEASE OF [place] CORONARY 11/21/2016 ANDRZEJ TEE N Ot J44.9 CHRONIC OBSTRUCTIVE PULMONARY DISEASE, U 11/21/2016 ANDRZEJ TEE N Ot Z23 ENCOUNTER FOR IMMUNIZATION 11/21/2016 NAY JULESEDDIE N Ot Z51.11 ENCOUNTER FOR ANTINEOPLASTIC CHEMOTHERAP 11/21/2016 ANDRZEJ TEE N Ot Z79.899 OTHER MESSAGE BROKER DEVELOPER (CURRENT) DRUG THERAPY 2016 ANDRZEJ TEE N [...] N Ot I25.10 ATHSCL HEART DISEASE OF [place] CORONARY 11/26/2016 ANDRZEJ TEE N Ot J44.9 CHRONIC OBSTRUCTIVE PULMONARY DISEASE, U 11/26/2016 NAY, JULESAN N Ot Z23 ENCOUNTER FOR IMMUNIZATION 11/26/2016 NAY ANDRZEJ N Ot Z51.11 ENCOUNTER FOR ANTINEOPLASTIC CHEMOTHERAP 11/26/2016 NAY JULESEDDIE N Ot Z79.899 OTHER CORRECTION (CURRENT) DRUG THERAPY 11/27/2016 PETER NIELSON DO, Ot I25.10 ATHSCL HEART DISEASE OF [place] CORONARY 11/27/2016 PETER NIELSON DO, Ot J44.9 [...] MD Ot I25.10 ATHSCL HEART DISEASE OF [place] CORONARY 11/27/2016 FRANTZ DUBOIS MD Ot I48.0 PAROXYSMAL ATRIAL FIBRILLATION 11/27/2016 FRANTZ DUBOIS MD Ot E78.2 MIXED HYPERLIPIDEMIA 11/27/2016 FRANTZ DUBOIS MD J Ot I10 ESSENTIAL (PRIMARY) HYPERTENSION 11/27/2016 FRANTZ DUBOIS MD Ot I25.10 ATHSCL HEART DISEASE OF [place] CORONARY 11/27/2016 FRANTZ DUBOIS MD Ot I48.0 PAROXYSMAL ATRIAL FIBRILLATION 11/27/2016 PETER NIELSON DO Ot J44.9 CHRONIC OBSTRUCTIVE PULMONARY DISEASE, U 11/27/2016 PETER NIELSON DO Ot R91.8 OTHER NONSPECIFIC ABNORMAL FINDING OF [place] 11/27/2016 SAMMY RICHARDSP Ot 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 11/27/2016 SMAMY RICHARDSP Ot I10 ESSENTIAL (PRIMARY) HYPERTENSION 11/27/2016 SAMMY RICHARDSP Ot I25.10 ATHSCL HEART DISEASE OF [place] CORONARY 11/27/2016 SAMMY RICHARDSP Ot J44.9 CHRONIC OBSTRUCTIVE PULMONARY DISEASE, U 11/27/2016 SAMMY RICHARDSP Ot Z79.899 OTHER CORRECTION (CURRENT) DRUG THERAPY 11/27/2016 SAMMY RICHARDSP Ot R42 DIZZINESS AND GIDDINESS 11/27/2016 SAMMY RICHARDS STEWARD/STEWARDESS ECONOMY CLASS Ot C34.11 MALIGNANT NEOPLASM OF UPPER LOBE, RIGHT 11/27/2016 SAMMY RICHARDSP Ot R06.00 DYSPNEA, UNSPECIFIED 11/27/2016 SAMMY RICHARDSP Ot C34.11 MALIGNANT NEOPLASM OF UPPER LOBE, RIGHT 11/27/2016 ANDRZEJ TEE Mukul Ot 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 11/27/2016 ANDRZEJ TEE Mukul Ot I10 ESSENTIAL (PRIMARY) HYPERTENSION 11/27/2016 ANDRZEJ TEE Mukul Ot I25.10 ATHSCL HEART DISEASE OF [place] CORONARY 11/27/2016 ANDRZEJ TEE Mukul Ot J44.9 CHRONIC OBSTRUCTIVE PULMONARY DISEASE, U 11/27/2016 ANDRZEJ TEE Mukul Ot Z23 ENCOUNTER FOR IMMUNIZATION 11/27/2016 ANDRZEJ TEE Mukul Ot Z51.11 ENCOUNTER FOR ANTINEOPLASTIC CHEMOTHERAP 11/27/2016 ANDRZEJ TEE Mukul Ot Z79.899 OTHER MESSAGE BROKER DEVELOPER (CURRENT) DRUG THERAPY 11/27/2016 ANDRZEJ TEE Mukul Ot C34.11 MALIGNANT NEOPLASM OF UPPER LOBE, RIGHT 11/27/2016 ANDRZEJ TEE Mukul Ot 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 11/28/2016 SAMMY RICHARDS S STEWARD/STEWARDESS ECONOMY CLASS Ot C34.11 MALIGNANT NEOPLASM OF UPPER LOBE, RIGHT 11/28/2016 SAMMY RICHARDS S STEWARD/STEWARDESS ECONOMY CLASS Ot C79.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 11/28/2016 SAMMY RICHARDS S STEWARD/STEWARDESS ECONOMY CLASS Ot R42 DIZZINESS AND GIDDINESS 11/28/2016 SAMMY RICHARDS S STEWARD/STEWARDESS ECONOMY CLASS Ot C34.11 MALIGNANT NEOPLASM OF UPPER LOBE, RIGHT 11/28/2016 SAMMY RICHARDS S STEWARD/STEWARDESS ECONOMY CLASS Ot C79.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 11/28/2016 SAMMY RICHARDS S STEWARD/STEWARDESS ECONOMY CLASS Ot R42 DIZZINESS AND GIDDINESS 12/03/2016 SAMMY RICHARDS S STEWARD/STEWARDESS ECONOMY CLASS Ot C34.11 MALIGNANT NEOPLASM OF UPPER LOBE, RIGHT 12/03/2016 SAMMY RICHARDS S STEWARD/STEWARDESS ECONOMY CLASS Ot C79.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 12/03/2016 SAMMY RICHARDS S STEWARD/STEWARDESS ECONOMY CLASS Ot R42 DIZZINESS AND GIDDINESS 12/09/2016 ANDRZEJ TEE Mukul Ot 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 12/09/2016 ANDRZEJ TEE Mukul Ot I10 ESSENTIAL (PRIMARY) HYPERTENSION 12/09/2016 NAY JULESEDDIE Mukul Ot I25.10 ATHSCL HEART DISEASE OF [place] CORONARY 12/09/2016 NAY JULESEDDIE Mukul Ot J44.9 CHRONIC OBSTRUCTIVE PULMONARY DISEASE, U 12/09/2016 ANDRZEJ TEE Ot Z23 ENCOUNTER FOR IMMUNIZATION 12/09/2016 ANDRZEJ TEE Ot Z51.11 ENCOUNTER FOR ANTINEOPLASTIC CHEMOTHERAP 12/09/2016 ANDRZEJ TEE Ot Z79.899 OTHER CORRECTION (CURRENT) DRUG THERAPY 12/10/2016 ANDRZEJ TEE Ot [...] FOR IMMUNIZATION 12/10/2016 ANDRZEJ TEE Ot Z79.01 CORRECTION (CURRENT) USE OF ANTICOAGULANT 12/10/2016 ANDRZEJ TEE [...] FOR IMMUNIZATION 12/11/2016 ANDRZEJ TEE Ot Z79.01 MESSAGE BROKER DEVELOPER (CURRENT) USE OF ANTICOAGULANT 12/11/2016 ANDRZEJ TEE [...] FOR IMMUNIZATION 12/11/2016 ANDRZEJ TEE Ot Z79.01 MESSAGE BROKER DEVELOPER (CURRENT) USE OF ANTICOAGULANT 12/11/2016 ANDRZEJ TEE [...] WITHOUT 12/16/2016 ANDRZEJ TEE Mukul Ot Z79.01 CORRECTION (CURRENT) USE OF ANTICOAGULANT 12/16/2016 ANDRZEJ TEE [...] Mukul Ot I25.10 ATHSCL HEART DISEASE OF [place] CORONARY 12/18/2016 ANDRZEJ TEE Mukul Ot J44.9 CHRONIC OBSTRUCTIVE PULMONARY DISEASE, U 12/18/2016 ANDRZEJ ETE Mukul Ot Z51.0 ENCOUNTER FOR ANTINEOPLASTIC RADIATION T 12/18/2016 NAYJULESEDDIE Mukul Ot Z51.11 ENCOUNTER FOR ANTINEOPLASTIC CHEMOTHERAP 12/18/2016 NAY JULESEDDIE Mukul Ot Z79.01 CORRECTION (CURRENT) USE OF ANTICOAGULANT 12/18/2016 ANDRZEJ TEE Ot Z79.899 OTHER MESSAGE BROKER DEVELOPER (CURRENT) DRUG THERAPY 12/18/2016 NAYANDRZEJ VALLEJO Ot Z87.891 PERSONAL HISTORY OF NICOTINE DEPENDENCE 12/18/2016 SAMMY RICHARDS STEWARD/STEWARDESS ECONOMY CLASS Ot C34.11 MALIGNANT NEOPLASM OF UPPER LOBE, RIGHT 12/18/2016 SAMMY RICHARDS STEWARD/STEWARDESS ECONOMY CLASS Ot C79.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 12/18/2016 SAMMY RICHARDS STEWARD/STEWARDESS ECONOMY CLASS Ot R42 DIZZINESS AND GIDDINESS Procedures Code Description Performed By Performed On [id number] EXCISION OF ABDOMINAL WALL, PERCUTANEOUS 11/10/2016 Results [...] Bacteria identification in isolate by anaerobe culture [facility] Gram stain microscopy - 11/10/16 11:00 GRAM STAIN RESULT FEW WBC'S, NO BACTERIA OBSERVED [employer] [facility] Bacteria identification in wound by culture - 11/10/16 11:00 Bacteria identification in wound by culture [facility] Fungus culture - 11/10/16 11:00 Fungus culture [facility] Complete blood count (CBC) with [...] Status Pt. Type Provider Facility Loc./Unit Complaint [id number] 12/11/2016 16:03:00 2016 12:04:00 DIS Outpatient ANDRZEJ TEE [facility] 4TH SWB BRAIN METS.LG CANCER,RADIATION THERAPY [id number] 12/08/2016 17:10:00 2016 15:50:00 DIS Inpatient ANDRZEJ TEE [facility] 4TH WEAKNESS,CLOSED HEAD FRACTURE,METASTATIC CA [id number] 12/05/2016 14:09:00 2016 00:01:00 DIS Outpatient ANDRZEJ TEE [facility] ONC [id number] 11/07/2016 14:47:00 2016 15:18:00 DIS Inpatient NEY WADE MD [facility] 4TH ABDOMINAL PAIN, PROBABLE CANCER [id number] 09/03/2016 13:49:00 2016 00:01:00 DIS Outpatient ANDRZEJ TEE [facility] ONC [id number] 06/06/2016 12:52:00 2015 10:06:00 DIS Outpatient ANDRZEJ TEE [facility] ONC [id number] 04/14/2016 08:08:00 2015 12:10:00 [facility] [id number] 04/11/2016 05:33:00 2015 12:45:00 DIS Outpatient BRITTNEY STUART DO [facility] PREOP LUNG CANCER [id number] 03/31/2016 07:53:00 2015 13:30:00 DIS Outpatient PETER NIELSON DO [facility] LUNG MASS [id number] 03/28/2016 12:30:00 2015 13:02:00 DIS Outpatient PETER NIELSON DO [facility] PREOP LUNG MASS [id number] 12/26/2015 10:23:00 2015 10:40:00 DIS Outpatient PETER NIELSON DO [facility] SLEEP OBSERVED APNEA, SNORING, GASPING IN SLEEP, EDS [id number] 12/10/2016 00:16:00 PEN Preadmit ANDRZEJ TEE [facility] ONC [id number] 11/27/2016 09:27:00 ACT Outpatient SAMMY RICHARDS STEWARD/STEWARDESS ECONOMY CLASS [facility] RAD DIZZINESS,LUNG CA [id number] 2016 11:17:00 ACT Outpatient ANDRZEJ TEE [facility] RAD LUNG CANCER [id number] 09/30/2016 11:31:00 ACT Outpatient SAMMY RICHARDS STEWARD/STEWARDESS ECONOMY CLASS [facility] CARD LUNG CANCER [id number] 09/03/2016 15:00:00 ACT Outpatient SAMMY RICHARDS STEWARD/STEWARDESS ECONOMY CLASS [facility] RAD [id number] 06/09/2016 13:33:00 ACT Outpatient SAMMY RICHARDS STEWARD/STEWARDESS ECONOMY CLASS [facility] RAD DIZZINESS [id number] 04/30/2016 12:31:00 ACT Outpatient SAMMY RICHARDS STEWARD/STEWARDESS ECONOMY CLASS [facility] ONC [id number] 04/08/2016 09:58:00 ACT Outpatient PETER NIELSON DO [facility] RAD DYSPNEA,COPD,LUNG MASS [id number] 03/18/2016 09:28:00 ACT Outpatient FRANTZ DUBOIS MD [facility] CARD PAF,CAD,HTN,MIXED HLP [id number] 03/18/2016 08:16:00 ACT Outpatient FRANTZ DUBOIS MD [facility] CARD PAF,CAD,HTN,MIXED HLP [id number] 01/24/2016 12:01:00 ACT Outpatient PETER NIELSON DO [facility] RAD COPD,TOBACCO USE [id number] 01/07/2016 12:30:00 ACT Outpatient PETER NIELSON DO [facility] RT COPD,CAD
== END 2016-12-11 15:50 | disposition swing bed (61) | DRG 54 ==
LOC: EDUNIT# 13:21 → ER 13:23 → UNDOADMOB 14:30 → 4TH 14:30 → UNDOADMOB 15:32 → OBSVTOIN 12-08 17:10 → INTOOBSV 12-08 17:10 → UNDODISIN 12-11 15:50
PROVIDERS: ADMIT Internal Medicine Hematology & Oncology; ATTEND Internal Medicine Hematology & Oncology
DX: C79.31 Secondary malignant neoplasm of brain (principal); G93.6 Cerebral edema; E86.0 Dehydration; R63.0 Anorexia; S01.81XA Laceration without foreign body of other part of head, initial encounter; B37.0 Candidal stomatitis; C34.11 Malignant neoplasm of upper lobe, right bronchus or lung; C77.1 Secondary and unspecified malignant neoplasm of intrathoracic lymph nodes; C79.89 Secondary malignant neoplasm of other specified sites; C26.9 Malignant neoplasm of ill-defined sites within the digestive system; I48.2 Chronic atrial fibrillation; I10 Essential (primary) hypertension; J44.9 Chronic obstructive pulmonary disease, unspecified; F32.9 Major depressive disorder, single episode, unspecified; G47.33 Obstructive sleep apnea (adult) (pediatric); E78.00 Pure hypercholesterolemia, unspecified; K21.9 Gastro-esophageal reflux disease without esophagitis; M19.91 Primary osteoarthritis, unspecified site; H91.90 Unspecified hearing loss, unspecified ear; H54.3 Unqualified visual loss, both eyes; Z87.891 Personal history of nicotine dependence; Z79.01 Long term (current) use of anticoagulants; Z92.21 Personal history of antineoplastic chemotherapy; Z92.3 Personal history of irradiation; Z23 Encounter for immunization; W19.XXXA Unspecified fall, initial encounter; Y99.8 Other external cause status
CPT/HCPCS: 36415; 70450; 77336; 77417; 80048; 80053; 81000; 83690; 83735; 85007; 85025; 85027; 90471; 90715; 94760; 96360; 99285; G0378

== ENCOUNTER 2016-12-11 08:42 | Inpatient (IN) | payer MEDICARE ==
[~2016-12-11] VITALS: Ht 177.8 cm; Wt 59.6 kg
[~2016-12-11 08:42] MED LIST changes: +APIX5TAB PO; +DEXA4TAB PO; +FLUT16SP22 NS; +IPRA4AER IH; +LACT10SO5 PO; +OXYC-465 PO
[2016-12-11] MEDS: AA 4.25% W/LYTES IN D5W IV SOL 1,000 ML IV SCH ×2 (16:00→22:37)
[2016-12-11] MEDS ORDERED: RT-ALBUTEROL/IPRATROPIUM 3 ML (DUONEB) VIAL IH PRN (16:00)
[2016-12-11] MEDS ORDERED: ONDANSETRON 4 MG (ZOFRAN) ORAL DISSOLVE TAB PO PRN (16:00)
[2016-12-11] MEDS ORDERED: CATHETER FLUSH 10 ML SYR IV PRN (16:00)
[2016-12-11] MEDS ORDERED: LACTULOSE SYRUP 10GM/15ML (ENULOSE) 30ML UDC PO PRN (16:00)
[2016-12-11 16:15] VITALS: BP 131/74
[2016-12-11] MEDS: NYSTATIN ORAL SUSP 5 ML UDC PO SCH ×2 (16:58→20:52)
[2016-12-11] MEDS ORDERED: DEXAMETHASONE 4 MG TAB (DECADRON) PO SCH (17:00)
[2016-12-11 17:36] VITALS: BP 132/80
[2016-12-11] MEDS: APIXABAN 5 MG (ELIQUIS) TABLET PO SCH (20:52)
[2016-12-11] MEDS: ATORVASTATIN 20 MG (LIPITOR) TABLET PO SCH (20:52)
[2016-12-11] MEDS: DEXAMETHASONE 4 MG TAB (DECADRON) PO SCH (20:52)
[2016-12-12 06:00] VITALS: BP 144/77
[2016-12-12] MEDS: PANTOPRAZOLE 40 MG (PROTONIX) TAB PO SCH (06:12)
[2016-12-12] MEDS: AA 4.25% W/LYTES IN D5W IV SOL 1,000 ML IV SCH ×3 (06:38→23:30)
[2016-12-12] MEDS ORDERED: FLUCONAZOLE 100 MG/50 ML 50 ML IV SCH (09:00)
[2016-12-12] MEDS: fluCOnazole (DIFLUCAN) 100 MG TAB PO SCH (09:29)
[2016-12-12] MEDS: APIXABAN 5 MG (ELIQUIS) TABLET PO SCH ×2 (09:29→20:53)
[2016-12-12] MEDS: DEXAMETHASONE 4 MG TAB (DECADRON) PO SCH ×3 (09:29→20:53)
[2016-12-12] MEDS: NYSTATIN ORAL SUSP 5 ML UDC PO SCH ×4 (09:31→20:53)
[2016-12-12] MEDS: SERTRALINE 50 MG (ZOLOFT) TABLET PO SCH (09:31)
--- NOTE | 2016-12-12 12:05 | Physical Therapy Progress Note ---
Therapy Progress Note Attempted to complete PT evaluation and treatment 3 times this morning. 1st attempt at 955--pt reported he had just woken up and needed a few minutes. Returned at 1045, pt declined stating he was waiting on his paper to read. Returned at 1155, pt reported he just returned from radiation and was too tired. Encouraged him to walk a short distance in the [place] or to his door and back. Encouraged pt to at least sit up in his chair, he declined all. Pt very pleasant and does appear tired; however, could not be convinced to participate this morning. FRED FAIR PT Dec 12, 2016 12:05
--- NOTE | 2016-12-12 13:50 | Physical Therapy Progress Note ---
Therapy Progress Note PT attempted treatment this p.m. with patient adamantly declining due to extreme fatigue and not feeling well. RN notified. PT to attempt in a.m. 1 visit ref BK HO PT Dec 12, 2016 13:49
--- NOTE | 2016-12-12 14:05 | Progress Note-Standard ---
Standard Progress Note Progress Notes/Assess & Plan Progress/Assessment & Plan DIAGNOSES: 1. History of fall. 2. Metastatic cancer to the brain with cerebral edema. 3. Metastatic non-small cell lung cancer. 4. Deconditioning. Vital Signs 12/12/16 06:00 Temp 96.3 Pulse 72 Resp 18 B/P (MAP) 144/77 Pulse Ox 93 O2 Delivery NIV/CPAP Mr. Malone is an 86-year-old male, patient of Dr. Jerome Huston with a history of metastatic non-small cell lung cancer and was on palliative outpatient chemotherapy prior to admission. Recently he was diagnosed with brain metastasis associated with cerebral edema. He was started on dexamethasone to reduce the cerebral edema and initiated whole brain radiation therapy palliatively. The patient was living at home with his who is disabled and for whom he was the primary caregiver. He was not ambulating well and had a fall at home. He also had memory problems and is now unable to take care of himself or his . He is currently admitted to swing bed and will complete his radiation therapy as an inpatient on swing bed. and family are at bedside. Family is deciding whether they will initiate hospice treatment after completion of radiation therapy. DEIDRA SCALES MD Dec 12, 2016 14:05
[2016-12-12 18:00] VITALS: BP 151/78
[2016-12-12] MEDS: ATORVASTATIN 20 MG (LIPITOR) TABLET PO SCH (20:53)
[2016-12-12] MEDS: oxyCODONE/APAP 5/325MG (PERCOCET 5) TABLET PO PRN (20:59)
[2016-12-13 06:00] VITALS: BP 133/82
[2016-12-13] MEDS: PANTOPRAZOLE 40 MG (PROTONIX) TAB PO SCH (06:00)
[2016-12-13] MEDS: AA 4.25% W/LYTES IN D5W IV SOL 1,000 ML IV SCH ×2 (07:37→16:39)
[2016-12-13 08:00] VITALS: BP 131/78
[2016-12-13] MEDS: DEXAMETHASONE 4 MG TAB (DECADRON) PO SCH ×3 (09:08→20:00)
[2016-12-13] MEDS: fluCOnazole (DIFLUCAN) 100 MG TAB PO SCH (09:08)
[2016-12-13] MEDS: APIXABAN 5 MG (ELIQUIS) TABLET PO SCH ×2 (09:08→20:00)
[2016-12-13] MEDS: SERTRALINE 50 MG (ZOLOFT) TABLET PO SCH (09:08)
[2016-12-13] MEDS: NYSTATIN ORAL SUSP 5 ML UDC PO SCH ×4 (09:09→20:00)
--- NOTE | 2016-12-13 10:18 | Physical Therapy Progress Note ---
Therapy Progress Note PT attempted x 3 for evaluation this a.m., however, continues to decline PT intervention secondary to fatigue. PT encouraged patient to participate with activity to improve current LOF, however, patient continues to decline. PT will continue to attempt for evaluation. 1 ref x 3 BK HO PT Dec 13, 2016 10:18
[2016-12-13] MEDS: oxyCODONE/APAP 5/325MG (PERCOCET 5) TABLET PO PRN (14:22)
--- NOTE | 2016-12-13 15:54 | Progress Note-Standard ---
Standard Progress Note Progress Notes/Assess & Plan Progress/Assessment & Plan DIAGNOSES: 1. History of fall. 2. Metastatic cancer to the brain with cerebral edema. 3. Metastatic non-small cell lung cancer. 4. Deconditioning. Vital Signs 12/13/16 12/13/16 08:00 08:15 Temp 96.9 Pulse 82 Resp 20 B/P (MAP) 131/78 Pulse Ox 96 O2 Delivery Room Air Mr. Malone is an 86-year-old male, patient of Dr. Jerome Huston with a history of metastatic non-small cell lung cancer who is receiving radiation to whole brain and has 2 remaining treatments that will be completed on Thursday. Today oral intake has been poor. He denies pain. No significant changes noted on Physical Examination. Continue current care. DEIDRA SCALES MD Dec 13, 2016 15:54
[2016-12-13 18:15] VITALS: BP 138/80
[2016-12-13] MEDS: ATORVASTATIN 20 MG (LIPITOR) TABLET PO SCH (20:00)
[2016-12-14] MEDS: AA 4.25% W/LYTES IN D5W IV SOL 1,000 ML IV SCH ×4 (00:45→15:49)
[2016-12-14 05:00] VITALS: BP 144/84
[2016-12-14] MEDS: PANTOPRAZOLE 40 MG (PROTONIX) TAB PO SCH (05:44)
[2016-12-14] MEDS: DEXAMETHASONE 4 MG TAB (DECADRON) PO SCH ×3 (08:44→20:06)
[2016-12-14] MEDS: SERTRALINE 50 MG (ZOLOFT) TABLET PO SCH (08:44)
[2016-12-14] MEDS: fluCOnazole (DIFLUCAN) 100 MG TAB PO SCH (08:44)
[2016-12-14] MEDS: NYSTATIN ORAL SUSP 5 ML UDC PO SCH ×4 (08:44→20:06)
[2016-12-14] MEDS: APIXABAN 5 MG (ELIQUIS) TABLET PO SCH ×2 (08:44→20:06)
[2016-12-14] MEDS: oxyCODONE/APAP 5/325MG (PERCOCET 5) TABLET PO PRN (10:00)
--- NOTE | 2016-12-14 13:30 | Progress Note-Standard ---
Standard Progress Note Progress Notes/Assess & Plan Progress/Assessment & Plan DIAGNOSES: 1. History of fall. 2. Metastatic cancer to the brain with cerebral edema. 3. Metastatic non-small cell lung cancer. 4. Deconditioning. Vital Sign - Last 12Hours 12/14/16 12/14/16 05:00 08:00 Temp 97.2 Pulse 79 Resp 20 B/P (MAP) 144/84 Pulse Ox 95 O2 Delivery Room Air Room Air Intake and Output 12/14/16 00:00 Intake Total 350 ml Balance 350 ml Mr. Malone is an 86-year-old male, patient of Dr. Jerome Huston with a history of metastatic non-small cell lung cancer who is receiving radiation to whole brain and has 2 remaining treatments that will be completed on Thursday. Today oral intake has again been very poor. He denies pain. Appears depressed. PHYSICAL EXAMINATION: Lungs: Clear; no wheezes or rales; CVS: S1, S2, regular rhythm. Abdomen: Soft nontender without distention; normal bowel sounds present Extremities: No edema Neuro: Exam is nonfocal Laboratory Tests 12/14/16 13:57 1. Worsening Hyponatremia-likely arising from patient's known lung cancer with brain metastases. His peripheral oral intake is also contributing. We will add normal saline and decrease Clinimix to 60 mls/hour; Check lytes in am and Dr. Huston will adjust fluids in a.DEIDRA Omer MD Dec 14, 2016 13:30
[2016-12-14 14:10] LABS: BASOPHILS % (AUTO) 0 % (0-10); EOSINOPHILS % (AUTO) 0 % (0-10); LYMPHOCYTES # (AUTO) 0.4 X 10^3 (1.0-4.0); LYMPHOCYTES % (AUTO) 3 % (12-44); MEAN CORPUSCULAR HEMOGLOBIN 28 PG (25-34); MEAN CORPUSCULAR HGB CONC 34 G/DL (32-36); MEAN CORPUSCULAR VOLUME 82 FL (80-99); MEAN PLATELET VOLUME 9.7 FL (7.4-10.4); MONOCYTES # (AUTO) 0.5 X 10^3 (0.0-1.0); MONOCYTES % (AUTO) 4 % (0-12); NEUTROPHILS # (AUTO) 11.1 X 10^3 (1.8-7.8); NEUTROPHILS % (AUTO) 92 % (42-75); PLATELET COUNT 369 10^3/uL (130-400); RED BLOOD COUNT 4.67 10^6/uL (4.35-5.85); RED CELL DISTRIBUTION WIDTH 18.5 % (10.0-14.5)
[2016-12-14 14:23] LABS: BAND NEUTROPHILS 5 %; NEUTROPHILS % (MANUAL) 89 %
[2016-12-14 14:28] LABS: ALANINE AMINOTRANSFERASE 47 U/L (0-55); ALBUMIN 3.1 G/DL (3.2-4.5); ANION GAP 10 MMOL/L (5-14); ASPARTATE AMINO TRANSFERASE 23 U/L (5-34); BILIRUBIN,TOTAL 0.7 MG/DL (0.1-1.0); BLOOD UREA NITROGEN 50 MG/DL (7-18); BUN/CREATININE RATIO 46; CALCIUM 8.7 MG/DL (8.5-10.1); CARBON DIOXIDE 19 MMOL/L (21-32); CHLORIDE 92 MMOL/L (98-107); CREATININE SERUM 1.08 MG/DL (0.60-1.30); GFR ESTIMATED > 60; GLUCOSE 142 MG/DL (70-105); TOTAL PROTEIN 5.9 G/DL (6.4-8.2)
[2016-12-14 14:33] LABS: SODIUM 121 MMOL/L (135-145)
[2016-12-14] MEDS ORDERED: NS IV 1000 ML 1,000 ML ONE (14:41)
[2016-12-14] MEDS: NS IV 1000 ML 1,000 ML IV SCH ×2 (14:54→22:27)
[2016-12-14 18:00] VITALS: BP 136/82
[2016-12-14] MEDS: ATORVASTATIN 20 MG (LIPITOR) TABLET PO SCH (20:06)
[2016-12-15] MEDS: oxyCODONE/APAP 5/325MG (PERCOCET 5) TABLET PO PRN ×2 (03:54→14:12)
[2016-12-15 06:00] VITALS: BP 135/83
[2016-12-15 06:21] LABS: ANION GAP 8 MMOL/L (5-14); BLOOD UREA NITROGEN 45 MG/DL (7-18); BUN/CREATININE RATIO 46; CALCIUM 8.2 MG/DL (8.5-10.1); CARBON DIOXIDE 20 MMOL/L (21-32); CHLORIDE 98 MMOL/L (98-107); CREATININE SERUM 0.98 MG/DL (0.60-1.30); GFR ESTIMATED > 60; GLUCOSE 98 MG/DL (70-105); POTASSIUM 5.1 MMOL/L (3.6-5.0); SODIUM 126 MMOL/L (135-145)
[2016-12-15] MEDS: PANTOPRAZOLE 40 MG (PROTONIX) TAB PO SCH (06:35)
[2016-12-15] MEDS: NS IV 1000 ML 1,000 ML IV SCH ×2 (09:20→19:48)
[2016-12-15] MEDS: DEXAMETHASONE 4 MG TAB (DECADRON) PO SCH ×3 (09:22→16:49)
[2016-12-15] MEDS: APIXABAN 5 MG (ELIQUIS) TABLET PO SCH ×2 (09:22→20:00)
[2016-12-15] MEDS: NYSTATIN ORAL SUSP 5 ML UDC PO SCH ×4 (09:23→20:00)
[2016-12-15] MEDS: SERTRALINE 50 MG (ZOLOFT) TABLET PO SCH (09:23)
[2016-12-15] MEDS: fluCOnazole (DIFLUCAN) 100 MG TAB PO SCH (09:23)
[2016-12-15] MEDS: AA 4.25% W/LYTES IN D5W IV SOL 1,000 ML IV SCH (09:27)
--- NOTE | 2016-12-15 13:55 | Physical Therapy Progress Note ---
Therapy Progress Note Patient declined x 2 attempts on this date due to fatigue. PT attempted to encourage patient to participate with therapy to improve strength and endurance , however, patient continued to decline treatment. PT informed SW who will notify SWB coordinator. 1 visit ref x 2 BK HO PT Dec 15, 2016 13:55
--- NOTE | 2016-12-15 16:27 | Progress Note-Standard ---
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 Patient is on dexamethasone to decrease cerebral edema and is on palliative radiation therapy. He is scheduled to complete planned 10 treatments tomorrow. bibliographic services specialist is making arrangements to discharge him to an assisted care facility with hospice. Noted to have hyponatremia yesterday but this is better with normal saline. Continue normal saline and Clinimix with electrolytes at the current rate. He is not eating much but is eating a few ice cream daily. I will decrease dexamethasone to 4 mg twice a day and wean this off over 1-2 weeks. I will repeat a BMP tomorrow morning. Patient's daughters in the room at the time of evaluation and answered their questions. His overall prognosis is poor and we'll continue with best supportive care. ANDRZEJ TEE Dec 15, 2016 16:27
[2016-12-15 18:46] VITALS: BP 141/84
[2016-12-15] MEDS: ATORVASTATIN 20 MG (LIPITOR) TABLET PO SCH (20:00)
[2016-12-16] MEDS: AA 4.25% W/LYTES IN D5W IV SOL 1,000 ML IV SCH ×2 (01:29→03:42)
[2016-12-16] MEDS: oxyCODONE/APAP 5/325MG (PERCOCET 5) TABLET PO PRN (03:13)
[2016-12-16 06:00] VITALS: BP 121/80
[2016-12-16] MEDS: DEXAMETHASONE 4 MG TAB (DECADRON) PO SCH (06:24)
[2016-12-16] MEDS: PANTOPRAZOLE 40 MG (PROTONIX) TAB PO SCH (06:24)
[2016-12-16 07:36] LABS: ANION GAP 8 MMOL/L (5-14); BLOOD UREA NITROGEN 34 MG/DL (7-18); BUN/CREATININE RATIO 40; CALCIUM 8.3 MG/DL (8.5-10.1); CARBON DIOXIDE 18 MMOL/L (21-32); CHLORIDE 102 MMOL/L (98-107); CREATININE SERUM 0.86 MG/DL (0.60-1.30); GFR ESTIMATED > 60; GLUCOSE 89 MG/DL (70-105); POTASSIUM 4.9 MMOL/L (3.6-5.0); SODIUM 128 MMOL/L (135-145)
[2016-12-16] MEDS: fluCOnazole (DIFLUCAN) 100 MG TAB PO SCH (08:31)
[2016-12-16] MEDS: SERTRALINE 50 MG (ZOLOFT) TABLET PO SCH (08:31)
[2016-12-16] MEDS: APIXABAN 5 MG (ELIQUIS) TABLET PO SCH (08:31)
[2016-12-16] MEDS: NYSTATIN ORAL SUSP 5 ML UDC PO SCH (08:31)
[2016-12-16] MEDS ORDERED: DEXA4TAB PO ×2 (11:03)
--- NOTE | 2016-12-17 10:45 | DISCHARGE SUMMARY ---
DATE OF ADMISSION to swing bed status: 12/12/2016 DATE OF DISCHARGE: 12/16/2016 The patient was admitted to Room 416. FINAL DIAGNOSES: 1. Metastatic non-small cell lung cancer to the brain with significant cerebral edema. 2. Palliative whole brain radiation therapy. 3. Increased weakness and confusion due to number one. . BRIEF HISTORY AND HOSPITAL COURSE: Mr. Malone is an 86-year-old male with a history of non-small cell lung cancer which was metastatic and was being treated with palliative chemotherapy on an outpatient basis. He was complaining of lack of balance and a fall at home and was recently diagnosed with cerebral metastasis with significant edema. He was started on dexamethasone to reduce the cerebral edema and started on palliative whole brain radiation therapy. He was brought to the emergency room by the family after a fall at home and injury to the forehead. This was evaluated with a CT scan which showed soft tissue hematoma but no definite evidence of intracerebral bleeding. The patient was living with who is disabled and he was the primary caregiver to her. Because of his worsening physical condition, he was not able to take care of his or himself. He was admitted to the hospital and director of social media marketing consults were obtained. His children had made arrangements to place his at [facility]. He continued steroids at 4 mg of Decadron 4 times a day and continued the whole brain radiation therapy. He had a swing bed evaluation for completion of radiation therapy and he qualified for this and hence on 12/12/2016 he was transitioned to swing bed status. He had no appetite and was not eating. Initially he had evidence of oral candidiasis and was started on treatment for this which improved. The patient still had lack of appetite and refused to eat but occasionally he will take nutritional supplement or other liquids. As his condition was gradually declining, discussions were held with him and his family and they decided to consider hospice at the time of discharge to [facility]. patient financial services coordinator made appropriate arrangements and on 2016 after the completion of radiation therapy he was discharged to [facility] with hospice care. Medications were readjusted, especially the Eliquis and Lipitor. The patient was instructed to complete the medications supply he had at home and after that to consider stopping them. Hospice will continue to follow him regularly. No follow-up appointments were scheduled at the Cancer [facility]. I will continue to manage his needs with the help of hospice. Job ID: [id number] Dictated Date: 12/16/2016 18:47:49 Title Abstractor Date: 12/17/2016 10:34:03/chuck MARTINEZ
--- OUTSIDE RECORDS SUMMARY | 2017-01-11 21:54 | XMS REPORT | Continuity of Care Document ---
Author Author [facility] Organization [facility] Address Unknown Phone Unavailable Allergies Active Description Code Type Severity Reaction Onset Reported/Identified Relationship to Patient Clinical Status Yes Iodine and Iodide Containing Produc [id number] Drug Allergy Unknown RASH 03/31/2016 Yes Penicillins [id number] Drug Allergy Unknown HIVES 03/31/2016 Medications Problems Date Dx Coded Attending Type Code Diagnosis Diagnosed By 12/26/2015 PETER NIELSON DO Ot G47.33 OBSTRUCTIVE SLEEP APNEA (ADULT) (PEDIATR 01/09/2016 PETER NIELSON DO Ot I25.10 ATHSCL HEART DISEASE OF [place] CORONARY 01/09/2016 PETER NIELSON DO Ot J44.9 CHRONIC OBSTRUCTIVE PULMONARY DISEASE, U 01/09/2016 PETER NIELSON DO Ot Z72.0 TOBACCO USE 01/09/2016 PETER NIELSON DO Ot I25.10 ATHSCL HEART DISEASE OF [place] CORONARY 01/09/2016 PETER NIELSON DO Ot [...] DO Ot I25.10 ATHSCL HEART DISEASE OF [place] CORONARY 01/29/2016 PETER NIELSON DO Ot J44.9 CHRONIC OBSTRUCTIVE PULMONARY DISEASE, U 01/29/2016 PETER NIELSON DO Ot Z72.0 TOBACCO USE 02/06/2016 PETER NIELSON DO Ot I25.10 ATHSCL HEART DISEASE OF [place] CORONARY 02/06/2016 PETER NIELSON DO Ot [...] MD Ot I25.10 ATHSCL HEART DISEASE OF [place] CORONARY 03/19/2016 FRANTZ DUBOIS MD Ot [...] M Ot I25.10 ATHSCL HEART DISEASE OF [place] CORONARY 03/31/2016 PETER NIELSON DO M [...] M Ot I25.10 ATHSCL HEART DISEASE OF [place] CORONARY 04/03/2016 PETER NIELSON DO M [...] M Ot I25.10 ATHSCL HEART DISEASE OF [place] CORONARY 04/07/2016 PETER NIELSON DO M [...] MD Ot I25.10 ATHSCL HEART DISEASE OF [place] CORONARY 04/17/2016 FRANTZ DUBOIS MD Ot [...] MD Ot I25.10 ATHSCL HEART DISEASE OF [place] CORONARY 04/25/2016 FRANTZ DUBOIS MD Ot I48.0 PAROXYSMAL ATRIAL FIBRILLATION 04/28/2016 FRANTZ DUBOIS MD Ot E78.2 MIXED HYPERLIPIDEMIA 04/28/2016 FRANTZ DUBOIS MD Ot I10 ESSENTIAL (PRIMARY) HYPERTENSION 04/28/2016 FRANTZ DUBOIS MD Ot I25.10 ATHSCL HEART DISEASE OF [place] CORONARY 04/28/2016 FRANTZ DUBOIS MD Ot I48.0 PAROXYSMAL ATRIAL FIBRILLATION 05/01/2016 SAMMY RICHARDS Ot 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 05/01/2016 SAMMY RICHARDS BAKER SECOND Ot I10 ESSENTIAL (PRIMARY) HYPERTENSION 05/01/2016 SAMMY RICHARDS BAKER SECOND Ot I25.10 ATHSCL HEART DISEASE OF [place] CORONARY 05/01/2016 SAMMY RICHARDS BAKER SECOND Ot J44.9 CHRONIC OBSTRUCTIVE PULMONARY DISEASE, U 05/01/2016 SAMMY RICHARDS BAKER SECOND Ot 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 05/02/2016 ANDRZEJ TEE Ot 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 05/02/2016 ANDRZEJ TEE Ot I10 ESSENTIAL (PRIMARY) HYPERTENSION 05/02/2016 ANDRZEJ TEE Ot I25.10 ATHSCL HEART DISEASE OF [place] CORONARY 05/02/2016 ANDRZEJ TEE Ot J44.9 CHRONIC OBSTRUCTIVE PULMONARY DISEASE, U 05/02/2016 ANDRZEJ TEE Ot Z79.899 OTHER SHELTER (CURRENT) DRUG THERAPY 05/16/2016 PETER NIELSON DO Ot J44.9 CHRONIC OBSTRUCTIVE PULMONARY DISEASE, U 05/16/2016 PETER NIELSON DO Ot R91.8 OTHER NONSPECIFIC ABNORMAL FINDING OF [place] 05/19/2016 FRANTZ DUBOIS MD Ot E78.2 MIXED HYPERLIPIDEMIA 05/19/2016 FRANTZ DUBOIS MD Ot I10 ESSENTIAL (PRIMARY) HYPERTENSION 05/19/2016 FRANTZ DUBOIS MD Ot I25.10 ATHSCL HEART DISEASE OF [place] CORONARY 05/19/2016 FRANTZ DUBOIS MD Ot I48.0 PAROXYSMAL ATRIAL FIBRILLATION 05/21/2016 SAMMY RICHARDS S BAKER SECOND Ot 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 05/21/2016 SAMMY RICHARDS BAKER SECOND Ot I10 ESSENTIAL (PRIMARY) HYPERTENSION 05/21/2016 SAMMY RICHARDS BAKER SECOND Ot I25.10 ATHSCL HEART DISEASE OF [place] CORONARY 05/21/2016 SAMMY RICHARDSP Ot J44.9 CHRONIC OBSTRUCTIVE PULMONARY DISEASE, U 05/21/2016 SAMMY RICHARDS S BAKER SECOND Ot Z79.899 OTHER SHELTER (CURRENT) DRUG THERAPY 05/23/2016 FRANTZ DUBOIS MD Ot E78.2 MIXED HYPERLIPIDEMIA 05/23/2016 FRANTZ DUBOIS MD Ot I10 ESSENTIAL (PRIMARY) HYPERTENSION 05/23/2016 FRANTZ DUBOIS MD Ot I25.10 ATHSCL HEART DISEASE OF [place] CORONARY 05/23/2016 FRANTZ DUBOIS MD Ot I48.0 PAROXYSMAL ATRIAL FIBRILLATION 05/23/2016 PETER NIELSON DO Ot J44.9 CHRONIC OBSTRUCTIVE PULMONARY DISEASE, U 05/23/2016 PETER NIELSON DO Ot R91.8 OTHER NONSPECIFIC ABNORMAL FINDING OF [place] 05/28/2016 SAMMY RICHARDS S BAKER SECOND Ot 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 05/28/2016 SAMMY RICHARDS S BAKER SECOND Ot I10 ESSENTIAL (PRIMARY) HYPERTENSION 05/28/2016 SAMMY RICHARDS S BAKER SECOND Ot I25.10 ATHSCL HEART DISEASE OF [place] CORONARY 05/28/2016 SAMMY RICHARDS S BAKER SECOND Ot J44.9 CHRONIC OBSTRUCTIVE PULMONARY DISEASE, U 05/28/2016 SAMMY RICHARDS BAKER SECOND Ot 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 06/02/2016 NAYANDRZEJ VALLEJO N Ot 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 06/02/2016 ANDRZEJ TEE N Ot I10 ESSENTIAL (PRIMARY) HYPERTENSION 06/02/2016 ANDRZEJ TEE N Ot I25.10 ATHSCL HEART DISEASE OF [place] CORONARY 06/02/2016 ANDRZEJ TEE N Ot J44.9 CHRONIC OBSTRUCTIVE PULMONARY DISEASE, U 06/02/2016 ANDRZEJ TEE N Ot 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 06/09/2016 ANDRZEJ TEE N Ot 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 06/09/2016 ANDRZEJ TEE N Ot I10 ESSENTIAL (PRIMARY) HYPERTENSION 06/09/2016 ANDRZEJ TEE N Ot I25.10 ATHSCL HEART DISEASE OF [place] CORONARY 06/09/2016 ANDRZEJ TEE N Ot J44.9 CHRONIC OBSTRUCTIVE PULMONARY DISEASE, U 06/09/2016 ANDRZEJ TEE N Ot Z51.0 ENCOUNTER FOR ANTINEOPLASTIC RADIATION T 06/09/2016 NADRZEJ TEE N Ot Z51.11 ENCOUNTER FOR ANTINEOPLASTIC CHEMOTHERAP 06/09/2016 ANDRZEJ TEE N Ot 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 06/10/2016 ANDRZEJ TEE N Ot 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 06/10/2016 ANDRZEJ TEE N Ot I10 ESSENTIAL (PRIMARY) HYPERTENSION 06/10/2016 ANDRZEJ TEE N Ot I25.10 ATHSCL HEART DISEASE OF [place] CORONARY 06/10/2016 ANDRZEJ TEE N Ot J44.9 CHRONIC OBSTRUCTIVE PULMONARY DISEASE, U 06/10/2016 ANDRZEJ TEE N Ot Z51.11 ENCOUNTER FOR ANTINEOPLASTIC CHEMOTHERAP 06/10/2016 ANDRZEJ TEE N Ot 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 06/11/2016 SAMMY RICHARDS BAKER SECOND Ot R42 DIZZINESS AND GIDDINESS 06/19/2016 SAMMY RICHARDS BAKER SECOND Ot R42 DIZZINESS AND GIDDINESS 06/19/2016 SAMMY RICHARDS BAKER SECOND Ot R42 DIZZINESS AND GIDDINESS 06/20/2016 SAMMY RICHARDS BAKER SECOND Ot R42 DIZZINESS AND GIDDINESS 07/02/2016 RICHARDSSAMMY Drake BAKER SECOND Ot R42 DIZZINESS AND GIDDINESS 07/03/2016 RICHARDSSAMMY Drake BAKER SECOND Ot R42 DIZZINESS AND GIDDINESS 07/03/2016 SAMMY RICHARDS BAKER SECOND Ot R42 DIZZINESS AND GIDDINESS 07/03/2016 RICHARDSSAMMY Drake BAKER SECOND Ot R42 DIZZINESS AND GIDDINESS 07/09/2016 RICHARDSSAMMY Drake BAKER SECOND Ot R42 DIZZINESS AND GIDDINESS 08/04/2016 ANDRZEJ TEE N Ot 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 08/04/2016 NAYANDRZEJ VALLEJO N Ot I10 ESSENTIAL (PRIMARY) HYPERTENSION 08/04/2016 NAY ANDRZEJ N Ot I25.10 ATHSCL HEART DISEASE OF [place] CORONARY 08/04/2016 NAY, ANDRZEJ N Ot J44.9 CHRONIC OBSTRUCTIVE PULMONARY DISEASE, U 08/04/2016 NAY, ANDRZEJ N Ot Z51.11 ENCOUNTER FOR ANTINEOPLASTIC CHEMOTHERAP 08/04/2016 NAYJULES VALLEJOEDDIE N Ot Z79.899 OTHER SHELTER (CURRENT) DRUG THERAPY 08/05/2016 ANDRZEJ TEE N Ot 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 08/05/2016 ANDRZEJ TEE N Ot I10 ESSENTIAL (PRIMARY) HYPERTENSION 08/05/2016 JULES TEEEDDIE N Ot I25.10 ATHSCL HEART DISEASE OF [place] CORONARY 08/05/2016 NAY ANDRZEJ N Ot J44.9 CHRONIC OBSTRUCTIVE PULMONARY DISEASE, U 08/05/2016 NAY ANDRZEJ N Ot Z51.11 ENCOUNTER FOR ANTINEOPLASTIC CHEMOTHERAP 08/05/2016 JULES TEEEDDIE N Ot Z79.899 OTHER SHELTER (CURRENT) DRUG THERAPY 08/06/2016 ANDRZEJ TEE N Ot 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 08/06/2016 NAY ANDRZEJ N Ot I10 ESSENTIAL (PRIMARY) HYPERTENSION 08/06/2016 NAY, ANDRZEJ N Ot I25.10 ATHSCL HEART DISEASE OF [place] CORONARY 08/06/2016 NAY, ANDRZEJ N Ot J44.9 CHRONIC OBSTRUCTIVE PULMONARY DISEASE, U 08/06/2016 NAY, ANDRZEJ N Ot Z51.11 ENCOUNTER FOR ANTINEOPLASTIC CHEMOTHERAP 08/06/2016 NAY JULESAN N Ot Z79.899 OTHER SHELTER (CURRENT) DRUG THERAPY 09/04/2016 SAMMY RICHARDS BAKER SECOND Ot C34.11 MALIGNANT NEOPLASM OF UPPER LOBE, RIGHT 09/04/2016 SAMMY RICHARDS BAKER SECOND Ot R06.00 DYSPNEA, UNSPECIFIED 09/07/2016 NAY, ANDRZEJ N Ot C34.11 MALIGNANT NEOPLASM OF UPPER LOBE, RIGHT 09/07/2016 NAY, ANDRZEJ N Ot 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 09/07/2016 NAY, ANDRZEJ N Ot I10 ESSENTIAL (PRIMARY) HYPERTENSION 09/07/2016 NAY BOBAN N Ot I25.10 ATHSCL HEART DISEASE OF [place] CORONARY 09/07/2016 NAYANDRZEJ N Ot J44.9 CHRONIC OBSTRUCTIVE PULMONARY DISEASE, U 09/07/2016 NAY ANDRZEJ N Ot Z23 ENCOUNTER FOR IMMUNIZATION 09/07/2016 NAYANDRZEJ N Ot Z51.0 ENCOUNTER FOR ANTINEOPLASTIC RADIATION T 09/07/2016 NAYANDRZEJ N Ot Z51.11 ENCOUNTER FOR ANTINEOPLASTIC CHEMOTHERAP 09/07/2016 NAY JULESAN N Ot 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 09/08/2016 NAY ANDRZEJ N Ot C34.11 MALIGNANT NEOPLASM OF UPPER LOBE, RIGHT 09/08/2016 NAY BOBEDDIE N Ot I10 ESSENTIAL (PRIMARY) HYPERTENSION 09/08/2016 NAYANDRZEJ N Ot I25.10 ATHSCL HEART DISEASE OF [place] CORONARY 09/08/2016 NAYANDRZEJ N Ot J44.9 CHRONIC OBSTRUCTIVE PULMONARY DISEASE, U 09/08/2016 NAY BOBAN N Ot Z23 ENCOUNTER FOR IMMUNIZATION 09/08/2016 NAY BOBAN N Ot Z51.0 ENCOUNTER FOR ANTINEOPLASTIC RADIATION T 09/08/2016 NAYJULESAN N Ot Z51.11 ENCOUNTER FOR ANTINEOPLASTIC CHEMOTHERAP 09/08/2016 NAY BOBAN N Ot Z79.899 OTHER SHELTER (CURRENT) DRUG THERAPY 09/09/2016 SAMMY RICHARDS BAKER SECOND Ot C34.11 MALIGNANT NEOPLASM OF UPPER LOBE, RIGHT 09/09/2016 SAMMY RICHARDS BAKER SECOND Ot R06.00 DYSPNEA, UNSPECIFIED 09/09/2016 SAMMY RICHARDS BAKER SECOND Ot C34.11 MALIGNANT NEOPLASM OF UPPER LOBE, RIGHT 09/09/2016 SAMMY RICHARDSP Ot R06.00 DYSPNEA, UNSPECIFIED 09/10/2016 SAMMY RICHARDS BAKER SECOND Ot C34.11 MALIGNANT NEOPLASM OF UPPER LOBE, RIGHT 09/10/2016 SAMMY RICHARDSP Ot R06.00 DYSPNEA, UNSPECIFIED 09/10/2016 NAY, ANDRZEJ Gilman Ot 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 09/10/2016 ANDRZEJ TEE Ot I10 ESSENTIAL (PRIMARY) HYPERTENSION 09/10/2016 ANDRZEJ TEE Ot I25.10 ATHSCL HEART DISEASE OF [place] CORONARY 09/10/2016 ANDRZEJ TEE Ot J44.9 CHRONIC OBSTRUCTIVE PULMONARY DISEASE, U 09/10/2016 ANDRZEJ TEE Ot Z23 ENCOUNTER FOR IMMUNIZATION 09/10/2016 ANDRZEJ TEE Ot Z51.11 ENCOUNTER FOR ANTINEOPLASTIC CHEMOTHERAP 09/10/2016 ANDRZEJ TEE Ot Z79.899 OTHER SHELTER (CURRENT) DRUG THERAPY 09/11/2016 SAMMY RICHARDSP Ot C34.11 MALIGNANT NEOPLASM OF UPPER LOBE, RIGHT 09/11/2016 SAMMY RICHARDSP Ot R06.00 DYSPNEA, UNSPECIFIED 09/26/2016 SAMMY RICHARDS BAKER SECOND Ot C34.11 MALIGNANT NEOPLASM OF UPPER LOBE, RIGHT 09/26/2016 SAMMY RICHARDS BAKER SECOND Ot R06.00 DYSPNEA, UNSPECIFIED 09/30/2016 PETER NIELSON DO Ot I25.10 ATHSCL HEART DISEASE OF [place] CORONARY 09/30/2016 PETER NIELSON DO Ot [...] MD Ot I25.10 ATHSCL HEART DISEASE OF [place] CORONARY 09/30/2016 SILVINO KUMARI, FRANTZ Bird Ot I48.0 PAROXYSMAL ATRIAL FIBRILLATION 09/30/2016 SILVINO KUMARI, FRANTZ Bird Ot E78.2 MIXED HYPERLIPIDEMIA 09/30/2016 SILVINO KUMARI, FRANTZ Bird Ot I10 ESSENTIAL (PRIMARY) HYPERTENSION 09/30/2016 SILVINO KUMARI, FRANTZ Bird Ot I25.10 ATHSCL HEART DISEASE OF [place] CORONARY 09/30/2016 SILVINO KUMARI, FRANTZ Bird Ot I48.0 PAROXYSMAL ATRIAL FIBRILLATION 09/30/2016 PETER NIELSON DO Ot J44.9 CHRONIC OBSTRUCTIVE PULMONARY DISEASE, U 09/30/2016 PETER NIELSON DO Ot R91.8 OTHER NONSPECIFIC ABNORMAL FINDING OF [place] 09/30/2016 SAMMY RICHARDS BAKER SECOND Ot 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 09/30/2016 SAMMY RICHARDS Ot I10 ESSENTIAL (PRIMARY) HYPERTENSION 09/30/2016 SAMMY RICHARDS Ot I25.10 ATHSCL HEART DISEASE OF [place] CORONARY 09/30/2016 SAMMY RICHARDS BAKER SECOND Ot J44.9 CHRONIC OBSTRUCTIVE PULMONARY DISEASE, U 09/30/2016 SAMMY RICHARDSP Ot 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 09/30/2016 SAMMY RICHARDSP Ot R42 DIZZINESS AND GIDDINESS 09/30/2016 SAMMY RICHARDS BAKER SECOND Ot C34.11 MALIGNANT NEOPLASM OF UPPER LOBE, RIGHT 09/30/2016 SAMMY RICHARDS Ot R06.00 DYSPNEA, UNSPECIFIED 09/30/2016 ANDRZEJ TEE Ot 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 09/30/2016 ANDRZEJ TEE Ot I10 ESSENTIAL (PRIMARY) HYPERTENSION 09/30/2016 ANDRZEJ TEE Ot I25.10 ATHSCL HEART DISEASE OF [place] CORONARY 09/30/2016 ANDRZEJ TEE Ot J44.9 CHRONIC OBSTRUCTIVE PULMONARY DISEASE, U 09/30/2016 ANDRZEJ TEE Ot Z23 ENCOUNTER FOR IMMUNIZATION 09/30/2016 ANDRZEJ TEE Ot Z51.11 ENCOUNTER FOR ANTINEOPLASTIC CHEMOTHERAP 09/30/2016 ANDRZEJ TEE Ot Z79.899 OTHER SHELTER (CURRENT) DRUG THERAPY 09/30/2016 PETER NIELSON DO Ot I25.10 ATHSCL HEART DISEASE OF [place] CORONARY 09/30/2016 PETER NIELSON DO Ot [...] MD Ot I25.10 ATHSCL HEART DISEASE OF [place] CORONARY 09/30/2016 FRANTZ DUBOIS MD J Ot I48.0 PAROXYSMAL ATRIAL FIBRILLATION 09/30/2016 FRANTZ DUBOIS MD J Ot E78.2 MIXED HYPERLIPIDEMIA 09/30/2016 FRANTZ DUBOIS MD J Ot I10 ESSENTIAL (PRIMARY) HYPERTENSION 09/30/2016 FRANTZ DUBOIS MD J Ot I25.10 ATHSCL HEART DISEASE OF [place] CORONARY 09/30/2016 FRANTZ DUBOIS MD J [...] RICHARDSP Ot I25.10 ATHSCL HEART DISEASE OF [place] CORONARY 09/30/2016 SAMMY RICHARDS Ot J44.9 CHRONIC OBSTRUCTIVE PULMONARY DISEASE, U 09/30/2016 SAMMY RICHARDSP Ot Z79.899 OTHER SHELTER (CURRENT) DRUG THERAPY 09/30/2016 SAMMY RICHARDSP Ot R42 DIZZINESS AND GIDDINESS 09/30/2016 SAMMY RICHARDSP Ot C34.11 MALIGNANT NEOPLASM OF UPPER LOBE, RIGHT 09/30/2016 SAMMY RICHARDS BAKER SECOND Ot R06.00 DYSPNEA, UNSPECIFIED 09/30/2016 NAY ANDRZEJ N Ot 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 09/30/2016 NAY ANDRZEJ N Ot I10 ESSENTIAL (PRIMARY) HYPERTENSION 09/30/2016 NAY ANDRZEJ N Ot I25.10 ATHSCL HEART DISEASE OF [place] CORONARY 09/30/2016 NAY, ANDRZEJ Gilman Ot J44.9 CHRONIC OBSTRUCTIVE PULMONARY DISEASE, U 09/30/2016 NAY ANDRZEJ N Ot Z23 ENCOUNTER FOR IMMUNIZATION 09/30/2016 NAYANDRZEJ N Ot Z51.11 ENCOUNTER FOR ANTINEOPLASTIC CHEMOTHERAP 09/30/2016 NAYANDRZEJ N Ot 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 10/01/2016 SAMMY RICHARDS BAKER SECOND Ot C34.11 MALIGNANT NEOPLASM OF UPPER LOBE, RIGHT 10/01/2016 SAMMY RICHARDS BAKER SECOND Ot C34.11 MALIGNANT NEOPLASM OF UPPER LOBE, RIGHT 10/01/2016 SAMMY RICHARDS BAKER SECOND Ot R06.00 DYSPNEA, UNSPECIFIED 10/15/2016 NAY ANDRZEJ N Ot 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 10/15/2016 NAY, ANDRZEJ N Ot I10 ESSENTIAL (PRIMARY) HYPERTENSION 10/15/2016 NAYANDRZEJ N Ot I25.10 ATHSCL HEART DISEASE OF [place] CORONARY 10/15/2016 NAYANDRZEJ Ot J44.9 CHRONIC OBSTRUCTIVE PULMONARY DISEASE, U 10/15/2016 ANDRZEJ TEE N Ot Z23 ENCOUNTER FOR IMMUNIZATION 10/15/2016 NAYANDRZEJ N Ot Z51.11 ENCOUNTER FOR ANTINEOPLASTIC CHEMOTHERAP 10/15/2016 NAYANDRZEJ N Ot Z79.899 OTHER SHELTER (CURRENT) DRUG THERAPY 10/18/2016 NAYANDRZEJ N Ot C34.11 MALIGNANT NEOPLASM OF UPPER LOBE, RIGHT 10/18/2016 NAY ANDRZEJ N Ot I10 ESSENTIAL (PRIMARY) HYPERTENSION 10/18/2016 ANDRZEJ TEE N Ot I25.10 ATHSCL HEART DISEASE OF [place] CORONARY 10/18/2016 ANDRZEJ TEE N Ot J44.9 CHRONIC OBSTRUCTIVE PULMONARY DISEASE, U 10/18/2016 NAY, BOBAN N Ot Z23 ENCOUNTER FOR IMMUNIZATION 10/18/2016 ANDRZEJ TEE Ot Z51.0 ENCOUNTER FOR ANTINEOPLASTIC RADIATION T 10/18/2016 ANDRZEJ TEE Ot Z51.11 ENCOUNTER FOR ANTINEOPLASTIC CHEMOTHERAP 10/18/2016 ANDRZEJ TEE Ot 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 10/28/2016 SAMMY RICHARDS BAKER SECOND Ot C34.11 MALIGNANT NEOPLASM OF UPPER LOBE, RIGHT 10/30/2016 SAMMY RICHARDS BAKER SECOND Ot C34.11 MALIGNANT NEOPLASM OF UPPER LOBE, [...] CACHEXIA 11/10/2016 NEY WADE MD Ot 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 11/10/2016 NEY WADE [...] TEE Ot I25.10 ATHSCL HEART DISEASE OF [place] CORONARY 11/17/2016 ANDRZEJ TEE N Ot J44.9 CHRONIC OBSTRUCTIVE PULMONARY DISEASE, U 11/17/2016 NAYANDRZEJ VALLEJO N Ot Z23 ENCOUNTER FOR IMMUNIZATION 11/17/2016 ANDRZEJ TEE N Ot Z51.11 ENCOUNTER FOR ANTINEOPLASTIC CHEMOTHERAP 11/17/2016 ANDRZEJ TEE N Ot 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 11/21/2016 NAY JULESAN N Ot 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 11/21/2016 NAY BOBEDDIE N Ot I10 ESSENTIAL (PRIMARY) HYPERTENSION 11/21/2016 NAY JULESAN N Ot I25.10 ATHSCL HEART DISEASE OF [place] CORONARY 11/21/2016 ANDRZEJ TEE N Ot J44.9 CHRONIC OBSTRUCTIVE PULMONARY DISEASE, U 11/21/2016 ANDRZEJ TEE N Ot Z23 ENCOUNTER FOR IMMUNIZATION 11/21/2016 NAY JULESEDDIE N Ot Z51.11 ENCOUNTER FOR ANTINEOPLASTIC CHEMOTHERAP 11/21/2016 ANDRZEJ TEE N Ot 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 2016 ANDRZEJ TEE N [...] N Ot I25.10 ATHSCL HEART DISEASE OF [place] CORONARY 11/26/2016 ANDRZEJ TEE N Ot J44.9 CHRONIC OBSTRUCTIVE PULMONARY DISEASE, U 11/26/2016 NAY, JULESAN N Ot Z23 ENCOUNTER FOR IMMUNIZATION 11/26/2016 NAY ANDRZEJ N Ot Z51.11 ENCOUNTER FOR ANTINEOPLASTIC CHEMOTHERAP 11/26/2016 NAY JULESEDDIE N Ot Z79.899 OTHER SHELTER (CURRENT) DRUG THERAPY 11/27/2016 PETER NIELSON DO, Ot I25.10 ATHSCL HEART DISEASE OF [place] CORONARY 11/27/2016 PETER NIELSON DO, Ot [...] MD Ot I25.10 ATHSCL HEART DISEASE OF [place] CORONARY 11/27/2016 FRANTZ DUBOIS MD Ot I48.0 PAROXYSMAL ATRIAL FIBRILLATION 11/27/2016 FRANTZ DUBOIS MD Ot E78.2 MIXED HYPERLIPIDEMIA 11/27/2016 FRANTZ DUBOIS MD J Ot I10 ESSENTIAL (PRIMARY) HYPERTENSION 11/27/2016 FRANTZ DUBOIS MD Ot I25.10 ATHSCL HEART DISEASE OF [place] CORONARY 11/27/2016 FRANTZ DUBOIS MD Ot I48.0 PAROXYSMAL ATRIAL FIBRILLATION 11/27/2016 PETER NIELSON DO Ot J44.9 CHRONIC OBSTRUCTIVE PULMONARY DISEASE, U 11/27/2016 PETER NIELSON DO Ot R91.8 OTHER NONSPECIFIC ABNORMAL FINDING OF [place]RIST[place] 11/27/2016 SAMMY RICHARDSP Ot 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 11/27/2016 SAMMY RICHARDSP Ot I10 ESSENTIAL (PRIMARY) HYPERTENSION 11/27/2016 SAMMY RICHARDSP Ot I25.10 ATHSCL HEART DISEASE OF [place] CORONARY 11/27/2016 SAMMY RICHARDSP Ot J44.9 CHRONIC OBSTRUCTIVE PULMONARY DISEASE, U 11/27/2016 SAMMY RICHARDSP Ot Z79.899 OTHER SHELTER (CURRENT) DRUG THERAPY 11/27/2016 SAMMY RICHARDSP Ot R42 DIZZINESS AND GIDDINESS 11/27/2016 SAMMY RICHARDS BAKER SECOND Ot C34.11 MALIGNANT NEOPLASM OF UPPER LOBE, RIGHT 11/27/2016 SAMMY RICHARDSP Ot R06.00 DYSPNEA, UNSPECIFIED 11/27/2016 SAMMY RICHARDSP Ot C34.11 MALIGNANT NEOPLASM OF UPPER LOBE, RIGHT 11/27/2016 ANDRZEJ TEE Mukul Ot 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 11/27/2016 ANDRZEJ TEE Mukul Ot I10 ESSENTIAL (PRIMARY) HYPERTENSION 11/27/2016 ANDRZEJ TEE Mukul Ot I25.10 ATHSCL HEART DISEASE OF [place] CORONARY 11/27/2016 ANDRZEJ TEE Mukul Ot J44.9 CHRONIC OBSTRUCTIVE PULMONARY DISEASE, U 11/27/2016 ANDRZEJ TEE Mukul Ot Z23 ENCOUNTER FOR IMMUNIZATION 11/27/2016 ANDRZEJ TEE Mukul Ot Z51.11 ENCOUNTER FOR ANTINEOPLASTIC CHEMOTHERAP 11/27/2016 ANDRZEJ TEE Mukul Ot 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 11/27/2016 ANDRZEJ TEE Mukul Ot C34.11 MALIGNANT NEOPLASM OF UPPER LOBE, RIGHT 11/27/2016 ANDRZEJ TEE Mukul Ot 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 11/28/2016 SAMMY RICHARDS S BAKER SECOND Ot C34.11 MALIGNANT NEOPLASM OF UPPER LOBE, RIGHT 11/28/2016 SAMMY RICHARDS S BAKER SECOND Ot C79.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 11/28/2016 SAMMY RICHARDS S BAKER SECOND Ot R42 DIZZINESS AND GIDDINESS 11/28/2016 SAMMY RICHARDS S BAKER SECOND Ot C34.11 MALIGNANT NEOPLASM OF UPPER LOBE, RIGHT 11/28/2016 SAMMY RICHARDS S BAKER SECOND Ot C79.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 11/28/2016 SAMMY RICHARDS S BAKER SECOND Ot R42 DIZZINESS AND GIDDINESS 12/03/2016 SAMMY RICHARDS S BAKER SECOND Ot C34.11 MALIGNANT NEOPLASM OF UPPER LOBE, RIGHT 12/03/2016 SAMMY RICHARDS S BAKER SECOND Ot C79.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 12/03/2016 SAMMY RICHARDS S BAKER SECOND Ot R42 DIZZINESS AND GIDDINESS 12/09/2016 ANDRZEJ TEE Mukul Ot 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 12/09/2016 ANDRZEJ TEE Mukul Ot I10 ESSENTIAL (PRIMARY) HYPERTENSION 12/09/2016 NAY JULESEDDIE Mukul Ot I25.10 ATHSCL HEART DISEASE OF [place] CORONARY 12/09/2016 NAY JULESEDDIE Mukul Ot J44.9 CHRONIC OBSTRUCTIVE PULMONARY DISEASE, U 12/09/2016 ANDRZEJ TEE Ot Z23 ENCOUNTER FOR IMMUNIZATION 12/09/2016 ANDRZEJ TEE Ot Z51.11 ENCOUNTER FOR ANTINEOPLASTIC CHEMOTHERAP 12/09/2016 ANDRZEJ TEE Ot Z79.899 OTHER SHELTER (CURRENT) DRUG THERAPY 12/10/2016 ANDRZEJ TEE Ot [...] FOR IMMUNIZATION 12/10/2016 ANDRZEJ TEE Ot Z79.01 SHELTER (CURRENT) USE OF ANTICOAGULANT 12/10/2016 ANDRZEJ TEE [...] FOR IMMUNIZATION 12/11/2016 ANDRZEJ TEE Ot 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 12/11/2016 ANDRZEJ TEE [...] FOR IMMUNIZATION 12/11/2016 ANDRZEJ TEE Ot 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 12/11/2016 ANDRZEJ TEE [...] WITHOUT 12/16/2016 ANDRZEJ TEE Mukul Ot Z79.01 SHELTER (CURRENT) USE OF ANTICOAGULANT 12/16/2016 ANDRZEJ TEE [...] Mukul Ot I25.10 ATHSCL HEART DISEASE OF [place] CORONARY 12/18/2016 ANDRZEJ TEE Mukul Ot J44.9 CHRONIC OBSTRUCTIVE PULMONARY DISEASE, U 12/18/2016 ANDRZEJ TEE Mukul Ot Z51.0 ENCOUNTER FOR ANTINEOPLASTIC RADIATION T 12/18/2016 NAYJULESEDDIE Mukul Ot Z51.11 ENCOUNTER FOR ANTINEOPLASTIC CHEMOTHERAP 12/18/2016 NAY JULESEDDIE Mukul Ot Z79.01 SHELTER (CURRENT) USE OF ANTICOAGULANT 12/18/2016 ANDRZEJ TEE Ot 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 12/18/2016 NAYANDRZEJ VALLEJO Ot Z87.891 PERSONAL HISTORY OF NICOTINE DEPENDENCE 12/18/2016 SAMMY RICHARDS BAKER SECOND Ot C34.11 MALIGNANT NEOPLASM OF UPPER LOBE, RIGHT 12/18/2016 SAMMY RICHARDS BAKER SECOND Ot C79.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 12/18/2016 SAMMY RICHARDS BAKER SECOND Ot R42 DIZZINESS AND GIDDINESS 12/26/2016 SAMMY RICHARDS BAKER SECOND Ot C34.11 MALIGNANT NEOPLASM OF UPPER LOBE, RIGHT 12/26/2016 SAMMY IRCHARDS BAKER SECOND Ot C79.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 12/26/2016 SAMMY RICHARDS BAKER SECOND Ot R42 DIZZINESS AND GIDDINESS 12/31/2016 ANDRZEJ TEE N Ot B37.0 CANDIDAL STOMATITIS 12/31/2016 ANDRZEJ TEE N Ot 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 12/31/2016 ANDRZEJ TEE N Ot C34.11 MALIGNANT NEOPLASM OF UPPER LOBE, RIGHT 12/31/2016 ANDRZEJ TEE Ot 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/31/2016 ANDRZEJ TEE N Ot C79.31 SECONDARY MALIGNANT NEOPLASM OF BRAIN 12/31/2016 ANDRZEJ TEE N Ot C79.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 12/31/2016 ANDRZEJ TEE N Ot E78.00 PURE HYPERCHOLESTEROLEMIA, UNSPECIFIED 12/31/2016 ANDRZEJ TEE N Ot E86.0 DEHYDRATION 12/31/2016 ANDRZEJ TEE N Ot F32.9 MAJOR DEPRESSIVE DISORDER, SINGLE EPISOD 12/31/2016 ANDRZEJ TEE N Ot G47.33 OBSTRUCTIVE SLEEP APNEA (ADULT) (PEDIATR 12/31/2016 ANDRZEJ TEE N Ot G93.6 CEREBRAL EDEMA 12/31/2016 ANDRZEJ TEE N Ot 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, BOTH EYES 12/31/2016 ANDRZEJ TEE N Ot H91.90 UNSPECIFIED HEARING LOSS, UNSPECIFIED EA 12/31/2016 ANDRZEJ TEE N Ot I10 ESSENTIAL (PRIMARY) HYPERTENSION 12/31/2016 ANDRZEJ TEE N Ot I48.2 CHRONIC ATRIAL FIBRILLATION 12/31/2016 ANDRZEJ TEE N Ot J44.9 CHRONIC OBSTRUCTIVE PULMONARY DISEASE, U 12/31/2016 ANDRZEJ TEE N Ot K21.9 GASTRO-ESOPHAGEAL REFLUX DISEASE WITHOUT 12/31/2016 ANDRZEJ TEE N Ot M19.91 PRIMARY OSTEOARTHRITIS, UNSPECIFIED SITE 12/31/2016 ANDRZEJ TEE N Ot R63.0 ANOREXIA 12/31/2016 ANDRZEJ TEE Ot S01.81XA LACERATION W/O FOREIGN BODY OF OTH PART 12/31/2016 ANDRZEJ TEE Ot W19.XXXA UNSPECIFIED FALL, INITIAL ENCOUNTER 12/31/2016 ANDRZEJ TEE Ot Y99.8 OTHER EXTERNAL CAUSE STATUS 12/31/2016 ANDRZEJ TEE Ot Z23 ENCOUNTER FOR IMMUNIZATION 12/31/2016 ANDRZEJ TEE Ot Z79.01 SHELTER (CURRENT) USE OF ANTICOAGULANT 12/31/2016 ANDRZEJ TEE Ot Z87.891 PERSONAL HISTORY OF NICOTINE DEPENDENCE 12/31/2016 ANDRZEJ TEE Ot Z92.21 PERSONAL HISTORY OF ANTINEOPLASTIC CHEMO 12/31/2016 ANDRZJE TEE Ot Z92.3 PERSONAL HISTORY OF IRRADIATION Procedures Code Description Performed By Performed On [id number] EXCISION OF ABDOMINAL WALL, PERCUTANEOUS 11/10/2016 Results [...] Bacteria identification in isolate by anaerobe culture NR Gram stain microscopy - 11/10/16 11:00 GRAM STAIN RESULT FEW WBC'S, NO BACTERIA OBSERVED NRG Bacteria identification in wound by culture - 11/10/16 11:00 Bacteria identification in wound by culture NG NRG Fungus culture - 11/10/16 11:00 Fungus culture [facility] Complete blood count (CBC) with automated white [...] Status Pt. Type Provider Facility Loc./Unit Complaint [id number] 12/11/2016 16:03:00 2016 12:04:00 DIS Outpatient ANDRZEJ TEE [facility] 4TH SWB BRAIN METS.LG CANCER,RADIATION THERAPY [id number] 12/08/2016 17:10:00 2016 15:50:00 DIS Inpatient ANDRZEJ TEE [facility] 4TH WEAKNESS,CLOSED HEAD FRACTURE,METASTATIC CA [id number] 12/05/2016 14:09:00 2016 00:01:00 DIS Outpatient ANDRZEJ TEE [facility] ONC [id number] 11/07/2016 14:47:00 2016 15:18:00 DIS Inpatient NEY WADE MD [facility] 4TH ABDOMINAL PAIN, PROBABLE CANCER [id number] 09/03/2016 13:49:00 2016 00:01:00 DIS Outpatient ANDRZEJ TEE [facility] ONC [id number] 06/06/2016 12:52:00 2015 10:06:00 DIS Outpatient ANDRZEJ TEE [facility] ONC [id number] 04/14/2016 08:08:00 2015 12:10:00 DIS Outpatient BRITTNEY STUART DO [facility] LUNG CANCER [id number] 04/11/2016 05:33:00 2015 12:45:00 DIS Outpatient BRITTNEY STUART DO [facility] PREOP LUNG CANCER [id number] 03/31/2016 07:53:00 2015 13:30:00 DIS Outpatient PETER NIELSON DO [facility] LUNG MASS [id number] 03/28/2016 12:30:00 2015 13:02:00 DIS Outpatient PETER NIELSON DO [facility] PREOP LUNG MASS [id number] 12/26/2015 10:23:00 2015 10:40:00 DIS Outpatient PETER NIELSON DO [facility] SLEEP OBSERVED APNEA, SNORING, GASPING IN SLEEP, EDS [id number] 12/10/2016 00:16:00 PEN Preadmit ANDRZEJ TEE [facility] ONC [id number] 11/27/2016 09:27:00 ACT Outpatient SAMMY RICHARDS [facility] RAD DIZZINESS,LUNG CA [id number] 2016 11:17:00 ACT Outpatient ANDRZEJ TEE [facility] RAD LUNG CANCER [id number] 09/30/2016 11:31:00 ACT Outpatient RICHARDSSAMMY Drake BAKER SECOND [facility] CARD LUNG CANCER [id number] 09/03/2016 15:00:00 ACT Outpatient RICHARDS SAMMY S BAKER SECOND [facility] RAD [id number] 06/09/2016 13:33:00 ACT Outpatient MAURICE SAMMY Drake BAKER SECOND [facility] RAD DIZZINESS [id number] 04/30/2016 12:31:00 ACT Outpatient MAURICE SAMMY Drake BAKER SECOND [facility] ONC [id number] 04/08/2016 09:58:00 ACT Outpatient PETER NIELSON DO [facility] RAD DYSPNEA,COPD,LUNG MASS [id number] 03/18/2016 09:28:00 ACT Outpatient FRANTZ DUBOIS MD [facility] CARD PAF,CAD,HTN,MIXED HLP [id number] 03/18/2016 08:16:00 ACT Outpatient FRANTZ DUBOIS MD [facility] CARD PAF,CAD,HTN,MIXED HLP [id number] 01/24/2016 12:01:00 ACT Outpatient PETRE NIELSON DO [facility] RAD COPD,TOBACCO USE [id number] 01/07/2016 12:30:00 ACT Outpatient PETER NIELSON DO [facility] RT COPD,CAD
== END 2016-12-16 12:04 | disposition hospice, home (50) | DRG 54 ==
LOC: 4TH 16:03
PROVIDERS: ADMIT Internal Medicine Hematology & Oncology; ATTEND Internal Medicine Hematology & Oncology
DX: C79.31 Secondary malignant neoplasm of brain (principal); G93.6 Cerebral edema; B37.0 Candidal stomatitis; C34.11 Malignant neoplasm of upper lobe, right bronchus or lung; C77.1 Secondary and unspecified malignant neoplasm of intrathoracic lymph nodes; C79.89 Secondary malignant neoplasm of other specified sites; C26.9 Malignant neoplasm of ill-defined sites within the digestive system; E87.1 Hypo-osmolality and hyponatremia; I48.2 Chronic atrial fibrillation; I10 Essential (primary) hypertension; J44.9 Chronic obstructive pulmonary disease, unspecified; F32.9 Major depressive disorder, single episode, unspecified; G47.33 Obstructive sleep apnea (adult) (pediatric); E78.00 Pure hypercholesterolemia, unspecified; K21.9 Gastro-esophageal reflux disease without esophagitis; H54.3 Unqualified visual loss, both eyes; Z87.891 Personal history of nicotine dependence; Z79.01 Long term (current) use of anticoagulants; Z92.21 Personal history of antineoplastic chemotherapy; Z92.3 Personal history of irradiation
CPT/HCPCS: 36415; 77336; 80048; 80053; 85007; 85027; 94760